=== PATIENT | male | born 1970 | race Caucasian/White ===

== ENCOUNTER → 2020-03-17 10:29 | Outpatient (BNVA) | payer SELFPAY | PROVIDERS: Visit Provider Internal Medicine | DX: Z95.2 Presence of prosthetic heart valve (principal); I34.0 Nonrheumatic mitral (valve) insufficiency; Z79.01 Long term (current) use of anticoagulants | CPT/HCPCS: 85610 ==

== ENCOUNTER 2020-04-10 19:21 | Observation (INO) | payer SELFPAY ==
[2020-04-10 19:39] VITALS: BP 154/84; PULSE 81; RESP 16; TEMP 36.8; O2SAT 97; BMI 24.4
--- NOTE | 2020-04-10 19:51 | CTR_ITS ---
PROCEDURE INFORMATION: Exam: CT Head Without Contrast Exam date and time: 04/10/2020 8:17 PM Age: 50 years old Clinical indication: Altered mental status/memory loss; Confusion or disorientation; Patient HX: C/O ams/memory loss TECHNIQUE: Imaging protocol: Computed tomography of the head without contrast. Radiation optimization: All CT scans at this facility use at least one of these dose optimization techniques: automated exposure control; mA and/or kV adjustment per patient size (includes targeted exams where dose is matched to clinical indication); or iterative reconstruction. COMPARISON: CT head wo con* [id number] 04/15/2017 4:13 PM RADIATION DOSE METRICS: Total DLP (mGy-cm): 818.77 FINDINGS: Brain: Normal. No hemorrhage. Unremarkable white matter. No mass effect. Ventricles: Normal. No ventriculomegaly. Bones/joints: Unremarkable. No acute fracture. Sinuses: Visualized sinuses are unremarkable. No fluid levels. Mastoid air cells: Visualized mastoid air cells are well aerated. Soft tissues: Unremarkable. CT/CT head wo con* [id number] IMPRESSION: No acute intracranial abnormality. Radiation Dose CTDIVOL = (mGy): DLP = 818.77 (mGy-cm)
--- NOTE | 2020-04-10 19:51 | ECG_ITS ---
[facility] Test Date: 2020-04-10 Pat Name: Vel Barnard Department: Room: Gender: Male Psychologist Experimental: : 1970 Requested By: Elvira Noel Order Number: [id number] Anne MD: Hillary Gudino M.D. Measurements Intervals [place] Rate: 74 P: 63 TN: 185 QRS: 8 QRSD: 85 T: 63 QT: 356 QTc: 396 Interpretive Statements SINUS RHYTHM SEPTAL MYOCARDIAL INFARCTION , OF INDETERMINATE AGE [40+ ms Q WAVE IN V1/V2] Compared to ECG 04/15/2017 15:55:52 Myocardial infarct finding now present T-wave abnormality no longer present Electronically Signed On 04-11-2020 15:17:42 CDT by Hillary Gudino M.D. [id number]
--- NOTE | 2020-04-10 19:51 | XRR_ITS ---
PROCEDURE INFORMATION: Exam: XR Chest, 1 View Exam date and time: 04/10/2020 8:31 PM Age: 50 years old Clinical indication: Other: Confusion; Prior surgery; Surgery type: Heart valve TECHNIQUE: Imaging protocol: XR of the chest Views: 1 view. COMPARISON: CR Chest 1 [place] [id number] 01/15/2018 12:15 AM FINDINGS: Lungs: Subsegmental atelectasis at the left lung base. Pleural space: Unremarkable. No pleural effusion. No pneumothorax. Heart/Mediastinum: Prosthetic cardiac valve. Bones/joints: Sternotomy wires. XR/XR chest 1V portable [id number] IMPRESSION: No acute abnormality. Subsegmental atelectasis at the left lung base.
--- NOTE | 2020-04-10 20:00 | CTR_ITS ---
PROCEDURE INFORMATION: Exam: CT Angiography Head With Contrast Exam date and time: 04/10/2020 8:30 PM Age: 50 years old Clinical indication: Type not specified; Patient HX: C/O ams/memory loss thinks he's having a stroke ; Additional info: Confusion/numbness TECHNIQUE: Imaging protocol: Computed tomography angiography of the head with intravenous contrast. 3D rendering (Not supervised by radiologist): MIP and/or 3D reconstructed images were created by the technologist. Radiation optimization: All CT scans at this facility use at least one of these dose optimization techniques: automated exposure control; mA and/or kV adjustment per patient size (includes targeted exams where dose is matched to clinical indication); or iterative reconstruction. Contrast material: OMNI 350; Contrast volume: 95 ml; Contrast route: INTRAVENOUS (IV); COMPARISON: CT head wo con* [id number] 04/10/2020 8:28 PM RADIATION DOSE METRICS: Total DLP (mGy-cm): 2202.99 FINDINGS: ANTERIOR CIRCULATION: Right internal carotid artery: Unremarkable. Intracranial segment is patent with no significant stenosis. No aneurysm. Right middle cerebral artery: Unremarkable. No occlusion or significant stenosis. No aneurysm. Right anterior cerebral artery: Unremarkable. No occlusion or significant stenosis. No aneurysm. Left internal carotid artery: Unremarkable. Intracranial segment is patent with no significant stenosis. No aneurysm. Left middle cerebral artery: Unremarkable. No occlusion or significant stenosis. No aneurysm. Left anterior cerebral artery: Unremarkable. No occlusion or significant stenosis. No aneurysm. POSTERIOR CIRCULATION: Right vertebral artery: Unremarkable. No occlusion or significant stenosis. No aneurysm. Left vertebral artery: Unremarkable. No occlusion or significant stenosis. No aneurysm. Basilar artery: Unremarkable. No occlusion or significant stenosis. No aneurysm. Right posterior cerebral artery: Unremarkable. No occlusion or significant stenosis. No aneurysm. Left posterior cerebral artery: Unremarkable. No occlusion or significant stenosis. No aneurysm. IMPRESSION: No large vessel stenosis or occlusion. PROCEDURE INFORMATION: Exam: CT Angiography Neck With Contrast Exam date and time: 04/10/2020 8:30 PM Age: 50 years old Clinical indication: Type not specified; Patient HX: C/O ams/memory loss thinks he's having a stroke ; Additional info: Confusion/numbness TECHNIQUE: Imaging protocol: Computed tomography angiography of the neck with intravenous contrast. 3D rendering (Not supervised by radiologist): MIP and/or 3D reconstructed images were created by the technologist. Radiation optimization: All CT scans at this facility use at least one of these dose optimization techniques: automated exposure control; mA and/or kV adjustment per patient size (includes targeted exams where dose is matched to clinical indication); or iterative reconstruction. Contrast material: OMNI 350; Contrast volume: 95 ml; Contrast route: INTRAVENOUS (IV); COMPARISON: CT head wo con* [id number] 04/10/2020 8:28 PM RADIATION DOSE METRICS: Total DLP (mGy-cm): 2202.99 FINDINGS: Right common carotid artery: No stenosis. No dissection or occlusion. Right internal carotid artery: No stenosis of the extracranial segment. No dissection or occlusion. Right external carotid artery: No occlusion or stenosis of the origin. Right vertebral artery: No stenosis. No dissection or occlusion. Left common carotid artery: No stenosis. No dissection or occlusion. Left internal carotid artery: Approximately 35% stenosis of the proximal left internal carotid artery with calcified plaque. Left external carotid artery: No occlusion or stenosis of the origin. Left vertebral artery: No stenosis. No dissection or occlusion. Bones/joints: No acute fracture. Soft tissues: Normal. No significant soft tissue swelling. CT/CT angio headneck* [id number] IMPRESSION: Right: No stenosis or occlusion of the vessels. Left: Approximately 35% stenosis of the proximal left internal carotid artery with calcified plaque. Vertebral artery is patent. REFERENCES: NASCET CRITERIA. The degree of internal carotid artery stenosis is based on NASCET criteria. Normal is no stenosis. Mild is less than 50% stenosis. Moderate is 50-69% stenosis. Severe is 70% to 99% stenosis. Total occlusion is no detectable patent lumen. Radiation Dose CTDIVOL = (mGy): DLP = 2202.99~2202.99 (mGy-cm)
--- NOTE | 2020-04-10 20:16 | W.ED.NEUROSD ---
HPI - Neuro Symptoms/Deficit General: Chief Complaint: Neuro Symptoms/Deficit Stated Complaint: thinks he had a stroke Time Seen by Provider: 04/10/20 19:50 Source: patient Mode of arrival: ambulatory Limitations: no limitations History of Present Illness: HPI Narrative: Vel is a nice 50-year-old male who comes in with symptoms of confusion that have been intermittent throughout the day. Over the past 3 to 4 hours they have become much more prominent. By confused the patient and his state specifically that he is having a hard time remembering what day it is. His states that at times he appears spacey . Patient states that he had similar symptoms in the past and it was determined to be a stroke. Patient denies any unilateral weakness or numbness. His states he is not having trouble with his speech and he is not having any slurred speech. Patient denies any headache, chest pain, shortness of breath, fever or other complaints. Patient's symptoms have been intermittent throughout the day but after he was outside working in the yard they became more prominent. Currently the patient states that he feels okay but that he still just does not feel quite right. Associated symptoms: Deny chest pain, diaphoresis, headache(s), malaise, nausea, syncope, vertigo or vomiting Review of Systems Const: Denies: fever(s), chills, body aches, fatigue, malaise or diaphoresis Eyes: Denies: change in vision, blurry vision, photophobia, eye discomfort, eye discharge, eye redness or yellow eyes ENMT: Denies: throat pain, odynophagia, hoarseness, swelling of lips/tongue, ear or mastoid pain, ear discharge, change in hearing or nasal discharge Card: Denies: chest pain, palpitations, irregular heart rhythm, edema, lightheadedness, syncope, pre-syncope, dyspnea on exertion or orthopnea Resp: Denies: dyspnea, productive cough, non-productive cough, wheezing, hemoptysis or chest congestion GI: Denies: abdominal pain, nausea, vomiting, hematemesis, coffee ground emesis, heartburn, diarrhea, constipation, GI cramping, hematochezia or melena : Denies: flank pain, dysuria, urinary frequency, urinary urgency or hematuria Musc: Denies: neck pain, back pain, extremity pain, extremity swelling, joint pain, joint swelling, joint redness, joint warmth or joint stiffness Skin/Breast: Denies: rash, pruritus, erythema, skin pain or skin tenderness Neuro: Reports: confusion; Denies: headache(s), numbness in extremities, weakness in extremities, sensory changes, lack of coordination, difficulty walking, dizziness, vertigo, Slurred speech present or seizure-like activity Bridger/Lymph: Denies: easy bruising, easy bleeding, petechiae, purpura or enlarged lymph nodes All/Imm: Denies: urticaria, throat swelling, tongue swelling, facial swelling or acute wheezing PFSH ED PFSH: Medical History (Updated 04/11/20 @ 00:16 by Elvira James) Chronic anticoagulation -On Coumadin CVA (cerebral vascular accident) Diverticulosis GERD (gastroesophageal reflux disease) Hypertension Hypothyroidism Surgical History (Updated 04/11/20 @ 00:07 by Yris Conteh MD) H/O hemorrhoidectomy H/O wrist surgery -right Hx of tracheostomy Mitral valve replaced -mechanical valve Family History Other Stroke Social History (Updated 04/11/20 @ 00:08 by Yris Conteh MD) Smoking and tobacco status: current every day smoker cigarettes Packs smoked per day: 2 Alcohol intake: never Substance/Drug Use: never Household members: family Marital status: Current occupational status: employed 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 NIH stroke score NIHSS: Level Of Consciousness - 1a: 0 Level Of Consciousness Questions - 1b: Both Correct Level Of Consciousness Commands - 1c: Both Correct Best Gaze - 2: Normal Visual Patino - 3: No Visual Loss Facial Palsy - 4: Normal Motor Arm Right - 5: No Drift Motor Arm Left - 5: No Drift Motor Leg Right - 6: No Drift Motor Leg Left - 6: No Drift Limb Ataxia - 7: Absent Sensory - 8: Mild To Moderate Loss Best Language - 9: No Aphasia Dysarthia - 10: Normal Extinction And Inattention - 11: 0 Score: Total Score: 1 Physical Exam Const: COMMON NORMALS: no acute distress, patient oriented x3, no limitations and alert GENERAL APPEARANCE: cooperative HENMT: COMMON NORMALS: normocephalic, atraumatic, external ears normal, EAC's normal and Normal external nose present HEAD & SCALP: normal to inspection, normocephalic and atraumatic FACE & SINUS: normal facial exam and face symmetric NOSE: Normal external nose present and Normal nares present EXTERNAL EAR: Yes external ears normal EXTERNAL AUDITORY CANAL: EAC's normal MOUTH: Normal oral and palatal mucosa present, lip normal and tongue normal Eye: COMMON NORMALS: Equal, round and reactive pupils present and conjunctivae normal GENERAL EYE: appearance normal, both eyes and all related structures ALIGNMENT: Yes alignment normal PERIORBITAL: periorbital findings normal EYELID: eyelids normal CONJUNCTIVA: Yes conjunctivae normal SCLERA: sclerae normal PUPIL: Yes Equal, round and reactive pupils present Neck/C-Spine: COMMON NORMALS: full ROM, no lymphadenopathy, supple, no meningeal signs and no JVD GENERAL: Yes normal visual inspection and Yes trachea midline Chest: COMMONS NORMALS: normal inspection of the chest and normal palpation of entire chest wall Resp: COMMON NORMALS: normal respiratory effort, No retractions, No use of accessory muscles and clear to auscultation bilaterally EFFORT & INSPECTION: Yes able to speak in complete sentences and Yes symmetric chest movement AUSCULTATION: clear to auscultation bilaterally, no crackles, no rales, no rhonchi and no wheezes Cardio: COMMON NORMALS: no JVD, regular rate, regular rhythm, S1 normal heart sound present and S2 normal heart sound present RATE: regular rate RHYTHM: regular rhythm HEART SOUNDS: S1 normal heart sound present, S2 normal heart sound present, no click, no gallops, no murmurs and no rubs GI: COMMON NORMALS: Soft to palpation and No hepatosplenomegaly present PALPATION: Yes Soft to palpation, No Tenderness to palpation present (GI), No Guarding due to palpation present (GI), No Rigid due to palpation, Yes No hepatosplenomegaly present, No Hernia present, No Palpable mass present and No Pulsatile mass present : COMMON NORMALS: Yes no CVA tenderness BLADDER/KIDNEY EXAM: Yes no CVA tenderness Back/Pelvis: COMMON NORMALS: no CVA tenderness, thoracic and lumbar spine normal to inspection, no thoracic nor lumbar tenderness and thoraco-lumbar ROM normal Extremity: COMMON NORMALS: normal to inspection, full ROM, capillary refill normal, no joint enlargement, no clubbing, cyanosis or edema and no calf tenderness Neuro: PAULY COMA SCALE: document GCS findings Pauly coma scale eye opening: Spontaneous Pauly coma scale verbal response: Orientated [place] coma scale motor response: Obey commands Pauly coma scale total score: 15 COMMON NORMALS: patient oriented x3, CN's II-XII intact bilaterally, moves all extremities and no focal motor deficits SENSORIUM/ORIENTATION: Yes alert MENINGEAL SIGNS: Yes no meningeal signs SPEECH: speech normal GAIT: Yes Normal gait present Psych: COMMON NORMALS: mental status grossly normal, Normal thought process present, cooperative, normal affect, speech normal and activity/motor behavior normal SPEECH: Yes normal speech THOUGHT PROCESS: Normal thought process present Skin: COMMON NORMALS: no rashes or lesions noted, turgor normal, no jaundice, no petechiae and no mottling GENERAL SKIN EXAM: no rashes or lesions noted and turgor normal Course Vital Signs: Vital signs: Vital Signs Temperature 98.2 F 04/10/20 19:39 Pulse Rate 81 04/10/20 19:39 Respiratory Rate 16 04/10/20 23:09 Blood Pressure 135/81 04/10/20 23:09 Pulse Oximetry 95 04/10/20 23:09 MDM - Neuro Symptoms/Deficit MDM Narrative: Medical decision making narrative: 0013 -patient symptoms are continuing. His states when I leave the room she has to explain to him what I was talking about with the patient again. He has continued and ongoing confusion. His only other sign of stroke at this time is decreased sensation on his right side. His NIH is 1. The case was reviewed with Dr. Triana, [facility] neurologist and she did not feel as though the patient was having an acute stroke but likely a repeat symptoms from his previous stroke. I have looked for a cause for this but there is no sign of infection, metabolic abnormality or toxin at this time that is showing that could be doing this. The case was endorsed to Dr. Conteh as the patient continues to have ongoing symptoms. She agrees to evaluate the patient and she will determine whether he needs admission or not. Lab Data: Attestation: I reviewed the patient's lab results. Labs: Lab Results 04/10/20 04/10/20 04/10/20 Range/Units 20:24 20:24 20:24 WBC 8.7 (4.0-10.0) 10^3/ uL RBC 4.76 (4.1-5.3) 10^6/u L Hgb 15.6 (11.7-16.6) g/dL Hct 46.4 (42.0-52.0) % MCV 97.5 H (80-94) fL MCH 32.8 (28.0-34.0) pg MCHC 33.6 (30.0-36.0) g/dL RDW 12.0 L (12.1-15.1) % Plt Count 236 (130-400) 10^3/c mm MPV 10.5 H (7.4-10.4) fL Neut % (Auto) 50.7 % Lymph % (Auto) 31.0 % [place] % (Auto) 10.1 % Eos % (Auto) 7.1 % Baso % (Auto) 0.9 % Neut # (Auto) 4.42 (1.8-7.7) 10^3/u L Lymph # (Auto) 2.7 (0.8-4.8) 10^3/u L [place] # (Auto) 0.9 (0.2-0.9) 10^3/u L Eos # (Auto) 0.6 (0.0-0.8) 10^3/u L Baso # (Auto) 0.1 (0.0-0.1) 10^3/u L Nucleated RBC % (a uto) 0 % Nucleated RBCs # 0.0 /100WBC PT 25.20 H (12.1-14.9) SECO NDS INR 2.20 H (0.8-1.2) Sodium 136 (136-145) mmol/L Potassium 4.2 (3.5-5.1) mmol/L Chloride 102 (98-107) mmol/L Carbon Dioxide 24 (22-29) mmol/L Anion Gap 14.2 (5-19) BUN 9 (6-20) mg/dL Creatinine 0.9 (0.7-1.2) mg/dL GFR Calculation 88.6 L (90-130) mL/min Glucose 94 (65-115) mg/dL Calculated Osmolal ity 278 L (285-295) mOsm/k g Calcium 9.3 (8.5-10.5) mg/dL Magnesium 1.9 (1.7-2.3) mg/dL Total Bilirubin 0.4 (0.15-1.2) mg/dL AST 20 (0-40) U/L ALT 15 (0-41) U/L Alkaline Phosphata se 79 (40-130) IU/L Creatine Kinase 140 (39-308) U/L Troponin T Baselin e (0-15) ng/L Troponin T 120 Min [place] (0-15) ng/L Delta Troponin T (0-10) ABS# Total Protein 7.4 (6.6-8.7) g/dL Albumin 4.7 (3.5-5.2) g/dL Globulin 2.7 (1.3-4.6) g/dL Urine Color (Yellow) Urine Appearance (CLEAR) Urine pH (5-7) Ur Specific Gravit y (1.005-1.030) Urine Protein (Negative) Urine Glucose (UA) (Normal) Urine Ketones (Negative) Urine Blood (Negative) Urine Nitrate (Negative) Urine Bilirubin (Negative) Urine Urobilinogen (Negative) mg/dL Ur Leukocyte Ruchi ase (Negative) Urine Opiates Scre en (Negative) ng/mL Ur Barbiturates Sc reen (Negative) ng/mL Ur Phencyclidine S crn (Negative) ng/mL Ur Amphetamines Sc reen (Negative) ng/mL U Benzodiazepines Scrn (Negative) ng/mL Urine Cocaine Scre en (Negative) ng/mL U Marijuana (THC) Screen (Negative) ng/mL Ethyl Alcohol (0-10) mg/dL 04/10/20 04/10/20 04/10/20 Range/Units 20:24 20:45 21:24 WBC (4.0-10.0) 10^3/ uL RBC (4.1-5.3) 10^6/u L Hgb (11.7-16.6) g/dL Hct (42.0-52.0) % MCV (80-94) fL MCH (28.0-34.0) pg MCHC (30.0-36.0) g/dL RDW (12.1-15.1) % Plt Count (130-400) 10^3/c mm MPV (7.4-10.4) fL Neut % (Auto) % Lymph % (Auto) % [place] % (Auto) % Eos % (Auto) % Baso % (Auto) % Neut # (Auto) (1.8-7.7) 10^3/u L Lymph # (Auto) (0.8-4.8) 10^3/u L [place] # (Auto) (0.2-0.9) 10^3/u L Eos # (Auto) (0.0-0.8) 10^3/u L Baso # (Auto) (0.0-0.1) 10^3/u L Nucleated RBC % (a uto) % Nucleated RBCs # /100WBC PT (12.1-14.9) SECO NDS INR (0.8-1.2) Sodium (136-145) mmol/L Potassium (3.5-5.1) mmol/L Chloride (98-107) mmol/L Carbon Dioxide (22-29) mmol/L Anion Gap (5-19) BUN (6-20) mg/dL Creatinine (0.7-1.2) mg/dL GFR Calculation (90-130) mL/min Glucose (65-115) mg/dL Calculated Osmolal ity (285-295) mOsm/k g Calcium (8.5-10.5) mg/dL Magnesium (1.7-2.3) mg/dL Total Bilirubin (0.15-1.2) mg/dL AST (0-40) U/L ALT (0-41) U/L Alkaline Phosphata se (40-130) IU/L Creatine Kinase (39-308) U/L Troponin T Baselin e 8 (0-15) ng/L Troponin T 120 Min [place] 6.21 (0-15) ng/L Delta Troponin T -1.79 L (0-10) ABS# Total Protein (6.6-8.7) g/dL Albumin (3.5-5.2) g/dL Globulin (1.3-4.6) g/dL Urine Color (Yellow) Urine Appearance (CLEAR) Urine pH (5-7) Ur Specific Gravit y (1.005-1.030) Urine Protein (Negative) Urine Glucose (UA) (Normal) Urine Ketones (Negative) Urine Blood (Negative) Urine Nitrate (Negative) Urine Bilirubin (Negative) Urine Urobilinogen (Negative) mg/dL Ur Leukocyte Ruchi ase (Negative) Urine Opiates Scre en (Negative) ng/mL Ur Barbiturates Sc reen (Negative) ng/mL Ur Phencyclidine S crn (Negative) ng/mL Ur Amphetamines Sc reen (Negative) ng/mL U Benzodiazepines Scrn (Negative) ng/mL Urine Cocaine Scre en (Negative) ng/mL U Marijuana (THC) Screen (Negative) ng/mL Ethyl Alcohol < 10 (0-10) mg/dL 04/10/20 04/10/20 Range/Units 21:30 21:30 WBC (4.0-10.0) 10^3/ uL RBC (4.1-5.3) 10^6/u L Hgb (11.7-16.6) g/dL Hct (42.0-52.0) % MCV (80-94) fL MCH (28.0-34.0) pg MCHC (30.0-36.0) g/dL RDW (12.1-15.1) % Plt Count (130-400) 10^3/c mm MPV (7.4-10.4) fL Neut % (Auto) % Lymph % (Auto) % [place] % (Auto) % Eos % (Auto) % Baso % (Auto) % Neut # (Auto) (1.8-7.7) 10^3/u L Lymph # (Auto) (0.8-4.8) 10^3/u L [place] # (Auto) (0.2-0.9) 10^3/u L Eos # (Auto) (0.0-0.8) 10^3/u L Baso # (Auto) (0.0-0.1) 10^3/u L Nucleated RBC % (a uto) % Nucleated RBCs # /100WBC PT (12.1-14.9) SECO NDS INR (0.8-1.2) Sodium (136-145) mmol/L Potassium (3.5-5.1) mmol/L Chloride (98-107) mmol/L Carbon Dioxide (22-29) mmol/L Anion Gap (5-19) BUN (6-20) mg/dL Creatinine (0.7-1.2) mg/dL GFR Calculation (90-130) mL/min Glucose (65-115) mg/dL Calculated Osmolal ity (285-295) mOsm/k g Calcium (8.5-10.5) mg/dL Magnesium (1.7-2.3) mg/dL Total Bilirubin (0.15-1.2) mg/dL AST (0-40) U/L ALT (0-41) U/L Alkaline Phosphata se (40-130) IU/L Creatine Kinase (39-308) U/L Troponin T Baselin e (0-15) ng/L Troponin T 120 Min [place] (0-15) ng/L Delta Troponin T (0-10) ABS# Total Protein (6.6-8.7) g/dL Albumin (3.5-5.2) g/dL Globulin (1.3-4.6) g/dL Urine Color Yellow (Yellow) Urine Appearance Clear (CLEAR) Urine pH 5 (5-7) Ur Specific Gravit y 1.005 (1.005-1.030) Urine Protein Neg (Negative) Urine Glucose (UA) Norm (Normal) Urine Ketones Negative (Negative) Urine Blood Neg (Negative) Urine Nitrate Negative (Negative) Urine Bilirubin Neg (Negative) Urine Urobilinogen Norm (Negative) mg/dL Ur Leukocyte Ruchi ase Negative (Negative) Urine Opiates Scre en Negative (Negative) ng/mL Ur Barbiturates Sc reen Negative (Negative) ng/mL Ur Phencyclidine S crn Negative (Negative) ng/mL Ur Amphetamines Sc reen Negative (Negative) ng/mL U Benzodiazepines Scrn Negative (Negative) ng/mL Urine Cocaine Scre en Negative (Negative) ng/mL U Marijuana (THC) Screen Negative (Negative) ng/mL Ethyl Alcohol (0-10) mg/dL Imaging Data^: CXR: Attestation: I personally reviewed and interpreted this imaging study as follows: My impression: No acute cardiopulmonary findings. CT Head: Radiologist's impression: [address] [place] [address] CT Scan Report Signed Patient: Vel Barnard Unit #: [id number] : 1970 Age/Sex: 50 / M ADM Date: 04/10/20 Loc: ER Room/Bed: Attending Dr: Ordering Provider/Ordering MD: Elvira James DO Date of Service: 04/10/20 Procedure(s): CT head wo con* [id number] Accession Number(s): [id number] Report Number: [id number] PROCEDURE INFORMATION: Exam: CT Head Without Contrast Exam date and time: 04/10/2020 8:17 PM Age: 50 years old Clinical indication: Altered mental status/memory loss; Confusion or disorientation; Patient HX: C/O ams/memory loss TECHNIQUE: Imaging protocol: Computed tomography of the head without contrast. Radiation optimization: All CT scans at this facility use at least one of these dose optimization techniques: automated exposure control; mA and/or kV adjustment per patient size (includes targeted exams where dose is matched to clinical indication); or iterative reconstruction. COMPARISON: CT head wo con* [id number] 04/15/2017 4:13 PM RADIATION DOSE METRICS: Total DLP (mGy-cm): 818.77 FINDINGS: Brain: Normal. No hemorrhage. Unremarkable white matter. No mass effect. Ventricles: Normal. No ventriculomegaly. Bones/joints: Unremarkable. No acute fracture. Sinuses: Visualized sinuses are unremarkable. No fluid levels. Mastoid air cells: Visualized mastoid air cells are well aerated. Soft tissues: Unremarkable. CT/CT head wo con* [id number] IMPRESSION: No acute intracranial abnormality. Radiation Dose CTDIVOL = (mGy): DLP = 818.77 (mGy-cm) Dictated By: Asael Madrid MD Signed By: Asael Madrid MD Signed Date/Time: 04/10/202115 DD/ 13 CTA Head Neck: Radiologist's impression: [place] [address] CT Scan Report Signed Patient: Vel Barnard Unit #: [id number] : 1970 Age/Sex: 50 / M ADM Date: 04/10/20 Loc: ER Room/Bed: Attending Dr: Ordering Provider/Ordering MD: Elvira James DO Date of Service: 04/10/20 Procedure(s): CT angio headneck* [id number] Accession Number(s): [id number] Report Number: [id number] PROCEDURE INFORMATION: Exam: CT Angiography Head With Contrast Exam date and time: 04/10/2020 8:30 PM Age: 50 years old Clinical indication: Type not specified; Patient HX: C/O ams/memory loss thinks he's having a stroke ; Additional info: Confusion/numbness TECHNIQUE: Imaging protocol: Computed tomography angiography of the head with intravenous contrast. 3D rendering (Not supervised by radiologist): MIP and/or 3D reconstructed images were created by the technologist. Radiation optimization: All CT scans at this facility use at least one of these dose optimization techniques: automated exposure control; mA and/or kV adjustment per patient size (includes targeted exams where dose is matched to clinical indication); or iterative reconstruction. Contrast material: OMNI 350; Contrast volume: 95 ml; Contrast route: INTRAVENOUS (IV); COMPARISON: CT head wo con* [id number] 04/10/2020 8:28 PM RADIATION DOSE METRICS: Total DLP (mGy-cm): 2202.99 FINDINGS: ANTERIOR CIRCULATION: Right internal carotid artery: Unremarkable. Intracranial segment is patent with no significant stenosis. No aneurysm. Right middle cerebral artery: Unremarkable. No occlusion or significant stenosis. No aneurysm. Right anterior cerebral artery: Unremarkable. No occlusion or significant stenosis. No aneurysm. Left internal carotid artery: Unremarkable. Intracranial segment is patent with no significant stenosis. No aneurysm. Left middle cerebral artery: Unremarkable. No occlusion or significant stenosis. No aneurysm. Left anterior cerebral artery: Unremarkable. No occlusion or significant stenosis. No aneurysm. POSTERIOR CIRCULATION: Right vertebral artery: Unremarkable. No occlusion or significant stenosis. No aneurysm. Left vertebral artery: Unremarkable. No occlusion or significant stenosis. No aneurysm. Basilar artery: Unremarkable. No occlusion or significant stenosis. No aneurysm. Right posterior cerebral artery: Unremarkable. No occlusion or significant stenosis. No aneurysm. Left posterior cerebral artery: Unremarkable. No occlusion or significant stenosis. No aneurysm. IMPRESSION: No large vessel stenosis or occlusion. PROCEDURE INFORMATION: Exam: CT Angiography Neck With Contrast Exam date and time: 04/10/2020 8:30 PM Age: 50 years old Clinical indication: Type not specified; Patient HX: C/O ams/memory loss thinks he's having a stroke ; Additional info: Confusion/numbness TECHNIQUE: Imaging protocol: Computed tomography angiography of the neck with intravenous contrast. 3D rendering (Not supervised by radiologist): MIP and/or 3D reconstructed images were created by the technologist. Radiation optimization: All CT scans at this facility use at least one of these dose optimization techniques: automated exposure control; mA and/or kV adjustment per patient size (includes targeted exams where dose is matched to clinical indication); or iterative reconstruction. Contrast material: OMNI 350; Contrast volume: 95 ml; Contrast route: INTRAVENOUS (IV); COMPARISON: CT head wo con* [id number] 04/10/2020 8:28 PM RADIATION DOSE METRICS: Total DLP (mGy-cm): 2202.99 FINDINGS: Right common carotid artery: No stenosis. No dissection or occlusion. Right internal carotid artery: No stenosis of the extracranial segment. No dissection or occlusion. Right external carotid artery: No occlusion or stenosis of the origin. Right vertebral artery: No stenosis. No dissection or occlusion. Left common carotid artery: No stenosis. No dissection or occlusion. Left internal carotid artery: Approximately 35% stenosis of the proximal left internal carotid artery with calcified plaque. Left external carotid artery: No occlusion or stenosis of the origin. Left vertebral artery: No stenosis. No dissection or occlusion. Bones/joints: No acute fracture. Soft tissues: Normal. No significant soft tissue swelling. CT/CT angio headneck* [id number] IMPRESSION: Right: No stenosis or occlusion of the vessels. Left: Approximately 35% stenosis of the proximal left internal carotid artery with calcified plaque. Vertebral artery is patent. REFERENCES: NASCET CRITERIA. The degree of internal carotid artery stenosis is based on NASCET criteria. Normal is no stenosis. Mild is less than 50% stenosis. Moderate is 50-69% stenosis. Severe is 70% to 99% stenosis. Total occlusion is no detectable patent lumen. Radiation Dose CTDIVOL = (mGy): DLP = 2202.99 2202.99 (mGy-cm) Dictated By: Asael Madrid MD Signed By: Asael Madrid MD Signed Date/Time: 04/10/202108 DD/ 06 EKG Data^: EKG 1: Attestation: I personally reviewed and interpreted this EKG as follows: EKG interpretation date: 04/10/20 EKG interpretation time: 20:07 Interpretation: Normal sinus rhythm at 74 beats a minute, normal axis, no blocks, normal intervals, no acute ST or T wave changes. Possible septal CT. Discharge Plan Discharge Patient Disposition: Placed in Observation Clinical Impression: Altered mental status Condition: Stable Prescriptions: No Action amlodipine 10 mg tablet 10 mg PO DAILY Qty: 90 RF: 3 warfarin 5 mg tablet 5 mg PO DAILY Qty: 30 RF: 5 warfarin 6 mg tablet 6 mg PO DAILY Qty: 30 RF: 5 Coding Level of Care Code ED Watch Dial Maker for Hai Tucker Exam Comprehensive
[2020-04-10] MEDS: sodium chloride 0.9% 1,000 ML 999 ML IV (20:25)
[2020-04-10 20:36] VITALS: RESP 16
[2020-04-10 20:40] LABS: Basophils # 0.1 10^3/uL (0.0-0.1); Basophils % 0.9 %; Eosinophils # 0.6 10^3/uL (0.0-0.8); Eosinophils % 7.1 %; Hematocrit 46.4 % (42.0-52.0); Hemoglobin 15.6 g/dL (11.7-16.6); Lymphocytes # 2.7 10^3/uL (0.8-4.8); Mean Corpuscular HGB Conc 33.6 g/dL (30.0-36.0); Mean Corpuscular Hemoglobin 32.8 pg (28.0-34.0); Mean Corpuscular Volume 97.5 fL (80-94); Mean Platelet Volume 10.5 fL (7.4-10.4); Monocytes # 0.9 10^3/uL (0.2-0.9); Monocytes % 10.1 %; Neutrophils # 4.42 10^3/uL (1.8-7.7); Neutrophils % 50.7 %; Nucleated Red Blood Cells % 0 %; Platelet Count 236 10^3/cmm (130-400); Red Blood Count 4.76 10^6/uL (4.1-5.3); White Blood Count 8.7 10^3/uL (4.0-10.0)
[2020-04-10] MEDS: iohexol 350 mg/mL 100 mL Btl IV (20:46)
[2020-04-10 21:15] LABS: Troponin(5th) Baseline 8 ng/L (0-15)
[2020-04-10 21:22] LABS: Alanine Aminotransferase 15 U/L (0-41); Albumin Level 4.7 g/dL (3.5-5.2); Alkaline Phosphatase 79 IU/L (40-130); Anion Gap 14.2 (5-19); Aspartate Amino Transferase 20 U/L (0-40); Blood Urea Nitrogen 9 mg/dL (6-20); Calcium 9.3 mg/dL (8.5-10.5); Carbon Dioxide 24 mmol/L (22-29); Chloride 102 mmol/L (98-107); Creatine Phosphokinase 140 U/L (39-308); Globulin 2.7 g/dL (1.3-4.6); Glomerular Filtration Rate 88.6 mL/min (90-130); Glucose 94 mg/dL (65-115); Magnesium 1.9 mg/dL (1.7-2.3); Osmolality Calculated 278 mOsm/kg (285-295); Potassium 4.2 mmol/L (3.5-5.1); Sodium 136 mmol/L (136-145); Total Bilirubin 0.4 mg/dL (0.15-1.2); Total Protein 7.4 g/dL (6.6-8.7)
[2020-04-10 21:41] VITALS: BP 139/89; RESP 18; O2SAT 96
--- NOTE | 2020-04-10 22:01 | ECG_ITS ---
[facility] Test Date: 2020-04-10 Pat Name: Vel Barnard Department: Room: Gender: Male [employer]: : 1970 Requested By: Elvira Noel Order Number: [id number] Anne MD: Hillary Gudino M.D. Measurements Intervals [place] Rate: 67 P: 57 MI: 193 QRS: 27 QRSD: 85 T: 63 QT: 372 QTc: 395 Interpretive Statements SINUS RHYTHM WITH OCCASIONAL ECTOPIC PREMATURE COMPLEXES SEPTAL MYOCARDIAL INFARCTION , OF INDETERMINATE AGE [40+ ms Q WAVE IN V1/V2] Compared to ECG 04/10/2020 20:07:19 No significant changes Electronically Signed On 04-11-2020 15:18:19 CDT by Hillary Gudino M.D. [email or web address]
[2020-04-10 22:07] LABS: Add Urine Microscopic? NO
[2020-04-10 22:29] LABS: Specific Gravity, Urine 1.005 (1.005-1.030); Urine Appearance Clear (CLEAR); Urine Color Yellow (Yellow); pH Urine 5 (5-7)
[2020-04-10 22:30] LABS: Bilirubin Urine Neg (Negative); Blood Urine Neg (Negative); Glucose Urine UA Norm (Normal); Ketones Urine Negative (Negative); Leukocyte Esterase Urine Negative (Negative); Nitrate Urine Negative (Negative); Protein Urine Neg (Negative); Urobilinogen Urine Norm (Negative)
[2020-04-10 23:09] VITALS: BP 135/81; RESP 16; O2SAT 95
[2020-04-10 23:40] LABS: Troponin 5 2HR 6.21 ng/L (0-15)
--- NOTE | 2020-04-10 23:46 | P.HP_ITS ---
Providers/Chief Complaint Admitting Physician: Yris Conteh MD Primary Care Provider: ZACK Tavarez Chief Complaint: thinks he had a stroke History of Present Illness Vel Barnard is a 50 year old male with PMHx noted below presents accompanied by his for evaluation of noted confusion that started earlier today and seems to have progressed as the day has worn on. He seems to be having trouble recalling things and is repetitively asking the same questions by his who is at bedside during my assessment in the ER. is known to me as she is a previous employee of our facility. Patient and did not notice any other symptoms, he denies change in his speech, recent fall, syncopal episode or loss of consciousness, chest pain, shortness of breath, does have a chronic dry cough which he attributes to smoking. Denies exposure to any known COVID-19 individuals, fever/chills, change in appetite, change in urinary or bowel habits. He has had a prior stroke in 2017 and is on anticoagulation with Coumadin secondary to having mechanical mitral valve. 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 Prior to the onset of his symptoms he was otherwise in his usual state of health. Work-up so far has been unremarkable including normal CBC, normal electrolytes and renal function, blood glucose of 94, urinalysis that is negative, INR of 2.20, CT head and CTA of the head and neck which are also unremarkable for any acute findings. Chest x-ray shows some left lower lobe atelectasis. Vital signs have been stable and is currently on room air. ED physician has spoken with tele-neurology with recommendation made for echo to be done. Initial NIH score was 1. His speech is clear, he is able to answer my questions appropriately though looks at his for confirmation almost as if he is unsure of his answers. We will need to observe on telemetry, monitor vital signs and neuro status at least overnight. Review of Systems Const: Reports: fatigue; Denies: fever(s) or chills Eyes: Denies: change in vision ENMT: Denies: odynophagia Card: Denies: chest pain, swelling of feet/ankles, lightheadedness, syncope or pre-syncope Resp: Reports: non-productive cough (chronic); Denies: dyspnea GI: Denies: abdominal pain, nausea, vomiting, hematemesis or hematochezia : Reports: urinary frequency; Denies: dysuria Musc: Denies: back pain Skin/Breast: Denies: rash Neuro: Reports: weakness in extremities; Denies: numbness in extremities Psych: Denies: anxiety Medications/Allergies Home Medications Medication Instructions Recorded Confirmed Last Taken Type warfarin 5 mg tablet 5 mg PO DAILY #30 tab 10/22/19 03/17/20 Unknown Rx warfarin 6 mg tablet 6 mg PO DAILY #30 tab 10/22/19 03/17/20 Unknown Rx amlodipine 10 mg tablet 10 mg PO DAILY #90 tab 11/13/19 11/13/19 Unknown Rx Allergies Allergy/AdvReac Type Severity Reaction Status Date / Time No Known Allergies Allergy Unverified 10/22/19 09:35 PFSH Acute PFSH: Medical History (Updated 04/11/20 @ 00:22 by Yris Conteh MD) Chronic anticoagulation -On Coumadin CVA (cerebral vascular accident) Diverticulosis GERD (gastroesophageal reflux disease) Hypertension Hypothyroidism Surgical History (Updated 04/11/20 @ 00:20 by Yris Conteh MD) H/O hemorrhoidectomy H/O wrist surgery -right Hx of tracheostomy Mitral valve replaced -mechanical valve Family History Other Stroke Social History (Updated 04/11/20 @ 00:08 by Yris Conteh MD) Smoking and tobacco status: current every day smoker cigarettes Packs smoked per day: 2 Alcohol intake: never Substance/Drug Use: never Household members: family Marital status: Current occupational status: employed 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 Vitals/I&O/Wt Last Vital Signs Temp 98.2 F 04/10/20 19:39 Pulse 81 04/10/20 19:39 Resp 16 04/10/20 23:09 BP 135/81 04/10/20 23:09 Pulse Ox 95 04/10/20 23:09 Weight last 48 hrs Weight 81.647 kg Physical Exam Const: COMMON NORMALS: no acute distress, patient oriented x3 and alert GENERAL APPEARANCE: cooperative and comfortable ORIENTATION/CONSCIOUSNESS: Yes awake OTHER: -Ramsey complexion from sun exposure HENMT: COMMON NORMALS: normocephalic, atraumatic, hearing grossly normal bilaterally and moist oral mucous membranes HEAD & SCALP: normocephalic and atraumatic Eye: COMMON NORMALS: Equal, round and reactive pupils present and EOMs intact bilaterally PUPIL: Yes Equal, round and reactive pupils present OTHER: - Bloodshot eyes bilaterally Neck/C-Spine: COMMON NORMALS: full ROM GENERAL: Yes normal visual inspection and Yes trachea midline Resp: COMMON NORMALS: normal respiratory effort, No retractions and No use of accessory muscles EFFORT & INSPECTION: Yes able to speak in complete sentences, Yes symmetric chest movement and No tachypneic OTHER: -on RA; diminished though symmetrical air entry bilaterally Cardio: COMMON NORMALS: regular rate, regular rhythm, S1 normal heart sound present, S2 normal heart sound present and No murmurs present (Cardio) RATE: regular rate RHYTHM: regular rhythm HEART SOUNDS: S1 normal heart sound present and S2 normal heart sound present GI: COMMON NORMALS: Normal to inspection, nondistended, normoactive bowel sounds present, Soft to palpation and non-tender PALPATION: Yes Soft to palpation Extremity: COMMON NORMALS: normal to inspection, full ROM and no clubbing, cyanosis or edema; negative for no pedal edema Neuro: COMMON NORMALS: patient oriented x3, moves all extremities, no focal motor deficits, no sensory deficits noted and gait normal SENSORIUM/ORIENTATION: Yes alert OTHER: -Minimally diminished gross sensation and strength on left lower extremity Psych: COMMON NORMALS: mental status grossly normal, Normal thought process present, cooperative, normal affect and speech normal SPEECH: Yes normal speech THOUGHT PROCESS: Normal thought process present Skin: COMMON NORMALS: no rashes or lesions noted, no jaundice, no petechiae and no mottling GENERAL SKIN EXAM: no rashes or lesions noted Data : 04/10/20 20:24 04/10/20 20:24 A&P Assessment and plan (1) Altered mental status: -Per report has had ongoing confusion, repeatedly asking the same question per at bedside, has progressed of the day has gone on -Unclear etiology currently as no overt indication of infection, no focal neurological deficits other than minimally diminished gross sensation and strength on the left lower extremity -Has history of prior stroke -Noted non-compliance with medications including anticoagulation with Coumadin which she is on due to mechanical mitral valve; INR slightly subtherapeutic at 2 .20; continue AC with coumadin -negative UDS, EtOH level -fall precautions -Echo in AM -CT head unremarkable for any acute findings, CTA head/neck-35% stenosis of proximal L ICA -troponins noted with no significant delta -telemetry monitoring -monitor vital signs -check TSH, A1c, lipid panel -add statin, ASA -PT/OT/ST evaluations -IVF hydration Status: Acute Qualifiers: Altered mental status type: disorientation Qualified Code(s): R41.0 - Disorientation, unspecified (2) Mitral valve replaced: -hx of mitral regurgitation s/p mechanical valve replacement -on AC with coumadin, goal INR 2.5-3.5 -daily INR Status: Chronic (3) Hypertension: -permissive HTN for now, hold oral antihypertensives -monitor vital signs Status: Chronic Qualifiers: Hypertension type: essential hypertension Qualified Code(s): I10 - Essential (primary) hypertension (4) GERD (gastroesophageal reflux disease): Status: Chronic Qualifiers: Esophagitis presence: esophagitis presence not specified Qualified Code(s): K21.9 - Gastro-esophageal reflux disease without esophagitis (5) Hypothyroidism: -check TSH -not on thyroid replacement Status: Chronic Qualifiers: Hypothyroidism type: unspecified Qualified Code(s): E03.9 - Hypothyroidism, unspecified Additional A&P Information -Chronic smoker; nicotine replacement therapy, smoking cessation encouraged -DVT ppx not needed as on coumadin -GI ppx with PPI -Dispo: home -Code status: FULL code Attestations Medical Necessity Statement*: Vel Barnard's hospital stay will be less than 2 midnights for management and further work-up of altered mental status. Time Spent in Patient Care: Greater than 35 minutes (>than 50% of time spent in counselling and/or direct pt care on unit) . Coding Level of Care Code Acute Caving Guide for Chg Fwd Exam Comprehensive Diagnoses Altered mental status R41.0 Altered mental status type: disorientation Mitral valve replaced Z95.2 Hypertension I10 Hypertension type: essential hypertension GERD (gastroesophageal reflux disease) K21.9 Esophagitis presence: esophagitis presence not specified Hypothyroidism E03.9 Hypothyroidism type: unspecified
[2020-04-10 23:55] LABS: Amphetamines Screen Urine Negative (Negative); Barbiturates Screen Urine Negative (Negative); Benzodiazepines Screen Urine Negative (Negative); Cocaine Screen Urine Negative (Negative); Opiate Screen Urine Negative (Negative); PCP Screen Urine Negative (Negative); THC Screen Urine Negative (Negative)
[2020-04-10 23:57] LABS: Alcohol Level < 10 mg/dL (0-10)
[2020-04-10 23:57] LABS: Troponin 5 2HR Delta -1.79 ABS# (0-10)
[2020-04-11] VITALS (7 sets, daily range): BP systolic 105–151; BP diastolic 56–85; PULSE 69–81; RESP 16–20; TEMP 36.5–37; O2SAT 93–98
[2020-04-11] MEDS: sodium chloride 0.9% 1,000 ML 100 ML IV ×2 (00:28→02:22)
[2020-04-11] MEDS: atorvastatin 40 mg Tablet PO (02:21)
[2020-04-11 04:20] LABS: Basophils # 0.1 10^3/uL (0.0-0.1); Basophils % 0.8 %; Eosinophils # 0.6 10^3/uL (0.0-0.8); Eosinophils % 6.7 %; Hematocrit 41.1 % (42.0-52.0); Hemoglobin 13.8 g/dL (11.7-16.6); Lymphocytes # 2.2 10^3/uL (0.8-4.8); Lymphocytes % 25.3 %; Mean Corpuscular HGB Conc 33.6 g/dL (30.0-36.0); Mean Corpuscular Volume 98.3 fL (80-94); Mean Platelet Volume 10.6 fL (7.4-10.4); Monocytes # 0.9 10^3/uL (0.2-0.9); Monocytes % 10.4 %; Neutrophils # 4.93 10^3/uL (1.8-7.7); Neutrophils % 56.6 %; Nucleated Red Blood Cells % 0 %; Platelet Count 197 10^3/cmm (130-400); Red Blood Count 4.18 10^6/uL (4.1-5.3); Red Cell Distribution Width 12.4 % (12.1-15.1); White Blood Count 8.7 10^3/uL (4.0-10.0)
[2020-04-11 04:33] LABS: INR 2.64 (0.8-1.2)
[2020-04-11 04:45] LABS: Blood Urea Nitrogen 9 mg/dL (6-20); Carbon Dioxide 24 mmol/L (22-29); Chloride 107 mmol/L (98-107); Glomerular Filtration Rate 78.5 mL/min (90-130); Glucose 103 mg/dL (65-115); Osmolality Calculated 284 mOsm/kg (285-295); Sodium 139 mmol/L (136-145)
[2020-04-11 04:49] LABS: Chol HDL Ratio 4.67 mg/dL (1.0-5.00); Cholesterol 140 mg/dL (0-200); HDL Cholesterol 30 mg/dL (60-100); LDL Cholesterol Calculated 67 mg/dL (50-129); LDL HDL Ratio 2.23 RATIO (0.00-3.22); Triglycerides 216 mg/dL (0-150)
--- NOTE | 2020-04-11 08:00 | USCV_ITS ---
Vel Barnard Age: 50 Gender: M : 1970 Exam Date: 04/11/2020 11:26 Ordering Phys: Elvira James DO Technologist: Laura Caldwell [place] [facility] [place]: CVA symptoms, Mechanical heart valve BP: 148 / 80 HR: 72 Rhythm: Sinus Technical Quality: Adequate MEASUREMENTS (Male / Female) Normal Values 2D ECHO LV Diastolic Diameter PLAX 3.9 cm 4.2 - 5.9 / 3.9 - 5.3 cm LV Systolic Diameter PLAX 3.0 cm LV Chamber Size 3.9 cm IVS Diastolic Thickness 1.2 cm 0.6 - 1.0 / 0.6 - 0.9 cm IVS Systolic Thickness 1.3 cm LVPW Diastolic Thickness 1.3 cm 0.6 - 1.0 / 0.6 - 0.9 cm LVPW Systolic Thickness 1.7 cm RV Chamber Size 2.7 cm LVOT Diameter 2.1 cm LV Ejection Fraction 2D Teich 45.2 % LV Ejection Fraction MOD 2C 59.4 % LV Ejection Fraction 2C AL 59.5 % LA Diameter 4.9 cm LA Width 3.8 cm LA Height 5.8 cm RA Width 3.7 cm RA Height 4.5 cm Aorta at Sinotubular Diameter 2.8 cm M-MODE LV Diastolic Diameter MM 5.1 cm 4.2 - 5.9 / 3.9 - 5.3 cm LV Systolic Diameter MM 3.4 cm LV Ejection Fraction MM Teich 59.9 % IVS Diastolic Thickness MM 1.2 cm 0.6 - 1.0 / 0.6 - 0.9 cm IVS Systolic Thickness MM 1.6 cm LVPW Diastolic Thickness MM 1.7 cm 0.6 - 1.0 / 0.6 - 0.9 cm LVPW Systolic Thickness MM 2.3 cm RV Diastolic Diameter MM 1.8 cm Aortic Annulus Diameter 3.3 cm LA Ao Ratio MM 1.5 DOPPLER AV Peak Velocity 171.0 cm/s LVOT Peak Velocity 132.0 cm/s AV Area Cont Eq vti 3.0 cm squared AV Area Cont Eq pk 2.7 cm squared MV Peak Velocity 183.0 cm/s MV Area PHT 3.2 cm squared Mitral E to A Ratio 1.7 MV E' Velocity 10.0 cm/s Mitral E to MV E' Ratio 20.0 Mitral E to LV E' Lateral Ratio 18.4 Mitral E to LV E' Septal Ratio 22.2 TR Peak Velocity 237.0 cm/s TR Peak Gradient 22.4 mmHg TV Peak E Velocity 70.0 cm/s Right Atrial Pressure 8.0 mmHg Pulmonary Artery Systolic Pressu 30.5 mmHg PV Peak Velocity 58.0 cm/s RV Acceleration Time 0.1 s RV Ejection Time 0.3 s RV AcT/ET 0.4 FINDINGS Left Ventricle Normal left ventricular cavity size. Normal left ventricular systolic function. No regional wall motion abnormalities. Left ventricular ejection fraction is estimated at 59 %. Grade II/IV diastolic dysfunction, moderately elevated filling pressures. Right Ventricle The right ventricle is normal in size and function. Right Atrium The right atrium is normal in size. Left Atrium The left atrium is normal in size. Mitral Valve There appeared to be Mechanical valve sitting in the mitral position without significant valvular or paravalvular leak Aortic Valve Mild aortic valve calcification. No aortic valve stenosis. Trace aortic valve regurgitation. Tricuspid Valve Mild tricuspid valve regurgitation. Pulmonic Valve Trace pulmonary valve regurgitation. Pericardium Normal pericardium without effusion. Aorta Normal ascending aorta dimension. CONCLUSIONS 1-Normal left ventricular cavity size. Normal left ventricular systolic function. No regional wall motion abnormalities. Left ventricular ejection fraction is estimated at 59 %. Grade II/IV diastolic dysfunction, moderately elevated filling pressures. 2-There appeared to be Mechanical valve sitting in the mitral position without significant valvular or paravalvular leak. 3-There appeared to be Mechanical valve sitting in the mitral position without significant valvular or paravalvular leak. 4-Mild aortic valve calcification. No aortic valve stenosis. Trace aortic valve regurgitation. 5-There is no pericardial effusion. 6-Right atrial pressure is around 15 mm of mercury. 7-No significant change since the prior echocardiogram study of 04/16/2017. Hillary Gudino MD (Electronically Signed) Final Date: 11 April 2020 13:00 S
[2020-04-11 08:33] LABS: Estmated Average Glucose 94; Hemoglobin A1C 4.9 % (4.0-6.0)
[2020-04-11] MEDS: pantoprazole DR 40 mg Tablet PO (08:43)
[2020-04-11] MEDS: aspirin 81 mg EC Tablet PO (08:43)
[2020-04-11] MEDS: acetaminophen 325 mg Tablet 650 MG PO (08:43)
[2020-04-11] MEDS: nicotine 21 mg Patch 1 PATCH TRANSDERMA (08:44)
[2020-04-11 10:28] LABS: Troponin 5 6HR 6.77 ng/L (0-15)
[2020-04-11 10:33] LABS: Troponin 5 6HR Delta -1.23 ng/L (0-12)
--- NOTE | 2020-04-11 11:04 | PM.PN ---
Vitals/I&O/Wt Last Vital Signs Temp 98.6 F 04/11/20 08:00 Pulse 81 04/11/20 08:00 Resp 18 04/11/20 08:00 BP 129/77 04/11/20 08:00 Pulse Ox 93 04/11/20 08:00 04/10/20 04/11/20 04/11/20 22:59 06:59 14:59 Intake Total 200 / 200 2240 / 2240 Balance 200 / 200 2240 / 2240 Weight last 48 hrs Weight 96.36 kg Weight 81.647 kg Data : 04/11/20 04:06 04/11/20 04:06 Coding Level of Care Code Acute Distillation Operator Helper for Hai Tucker
--- NOTE | 2020-04-11 11:14 | PM.DCS ---
Discharge Providers Date of Admission: 04/11/20 00:00 Date of Discharge: April 11, 2020 Attending Provider at Admission: Yris Conteh MD Attending Provider at Discharge: Rahul De La Torre MD Diagnoses at Discharge Discharge Diagnosis (1) Altered mental status: Status: Resolved Qualifiers: Altered mental status type: unspecified Qualified Code(s): R41.82 - Altered mental status, unspecified (2) Mitral valve replaced: Status: Chronic Problem details: -mechanical valve (3) Hypertension: Status: Chronic Qualifiers: Hypertension type: essential hypertension Qualified Code(s): I10 - Essential (primary) hypertension (4) GERD (gastroesophageal reflux disease): Status: Chronic Qualifiers: Esophagitis presence: esophagitis presence not specified Qualified Code(s): K21.9 - Gastro-esophageal reflux disease without esophagitis (5) Hypothyroidism: Status: Chronic Qualifiers: Hypothyroidism type: unspecified Qualified Code(s): E03.9 - Hypothyroidism, unspecified Reason for Visit Reason for Visit: thinks he had a stroke Hospital Course Hospital Course: 50-year-old male with PMH of HTN and S/P [place] MVR came with chief complaint of acute onset of confusion of unclear etiology of 1 day duration. He was worked up for acute encephalopathy during this hospital stay. no overt indication of infection, no focal neurological deficits other than minimally diminished gross sensation and strength on the left lower extremity.Has history of prior stroke-CT head unremarkable for any acute findings, CTA head/neck-35% stenosis of proximal L ICA.Noted non-compliance with medications including anticoagulation with Coumadin which he is on due to mechanical mitral valve; INR slightly subtherapeutic at 2.20 on admission ; warfarin was continued as per the recommended dose. Repeat INR was therapeutic. negative UDS, EtOH level. Troponins noted with no significant delta. Echo was done report is awaited. Patient was awake alert oriented. And he wished his desire to be discharged home. Our current plan is to discharge him today. He will continue to follow-up with his primary care physician. Physical Exam Const: COMMON NORMALS: patient oriented x3 HENMT: COMMON NORMALS: normocephalic, atraumatic, hearing grossly normal bilaterally and external ears normal HEAD & SCALP: normocephalic and atraumatic EXTERNAL EAR: Yes external ears normal Eye: COMMON NORMALS: no scleral icterus GENERAL EYE: appearance normal, both eyes and all related structures Chest: COMMONS NORMALS: normal inspection of the chest and normal palpation of entire chest wall CHEST: Yes Symmetrical chest wall rise Resp: COMMON NORMALS: normal respiratory effort, No retractions, No use of accessory muscles and clear to auscultation bilaterally EFFORT & INSPECTION: Yes symmetric chest movement AUSCULTATION: clear to auscultation bilaterally Cardio: COMMON NORMALS: regular rate, regular rhythm, S1 normal heart sound present, S2 normal heart sound present, No gallops present (Cardio), No murmurs present (Cardio), No rub (Cardio) and Peripheral pulses 2+ throughout RATE: regular rate RHYTHM: regular rhythm HEART SOUNDS: S1 normal heart sound present and S2 normal heart sound present PERIPHERAL PULSES: Peripheral pulses 2+ throughout GI: COMMON NORMALS: Normal to inspection, nondistended, normoactive bowel sounds present, Soft to palpation, non-tender, No hepatosplenomegaly present and no masses AUSCULTATION: Yes normoactive bowel sounds PALPATION: Yes Soft to palpation and Yes No hepatosplenomegaly present RECTAL EXAM: Yes deferred Extremity: COMMON NORMALS: no clubbing, cyanosis or edema and no pedal edema Neuro: COMMON NORMALS: patient oriented x3 Discharge Data Data Completed and Pending: Completed Studies During Hospitalization Category Date Time Status CT angio headneck * [id number] Urge nt Cat Scan 04/10/20 20:[address] head wo con* [id number] Stat Cat Scan 04/10/20 19:51 Completed XR chest 1V [place] [id number] Stat Exams 04/10/20 19:51 Completed Pending at discharge Category Date Time Status CV echo complete* [id number] Urgent Ultrasound 04/11/20 08:00 Ordered Labs from last 24 hours 04/11/20 04/11/20 04/11/20 04:06 04:06 04:06 WBC RBC Hgb Hct MCV MCH MCHC RDW Plt Count MPV Neut % (Auto) Lymph % (Auto) [place] % (Auto) Eos % (Auto) Baso % (Auto) Neut # (Auto) Lymph # (Auto) [place] # (Auto) Eos # (Auto) Baso # (Auto) Nucleated RBC % (a uto) Nucleated RBCs # PT 29.10 H INR 2.64 H Sodium Potassium Chloride Carbon Dioxide Anion Gap BUN Creatinine GFR Calculation Glucose Estimat Average Gl ucose 94 Hemoglobin A1c 4.9 Calculated Osmolal ity Calcium Magnesium Total Bilirubin AST ALT Alkaline Phosphata se Creatine Kinase Troponin T Baselin e Troponin T 120 Min [place] Delta Troponin T Troponin T Hi Sens 6Hr Troponin T Hi Sens 6Hr Delta Total Protein Albumin Globulin Triglycerides 216 H Cholesterol 140 LDL Cholesterol, C alc 67 HDL Cholesterol 30 L LDL/HDL Ratio 2.23 Cholesterol/HDL Ra edgar 4.67 TSH 2.30 Urine Color Urine Appearance Urine pH Ur Specific Gravit y Urine Protein Urine Glucose (UA) Urine Ketones Urine Blood Urine Nitrate Urine Bilirubin Urine Urobilinogen Ur Leukocyte Ruchi ase Urine Opiates Scre en Ur Barbiturates Sc reen Ur Phencyclidine S crn Ur Amphetamines Sc reen U Benzodiazepines Scrn Urine Cocaine Scre en U Marijuana (THC) Screen Ethyl Alcohol 04/11/20 04/11/20 04/11/20 04:06 04:06 04:06 WBC 8.7 RBC 4.18 Hgb 13.8 Hct 41.1 L MCV 98.3 H MCH 33.0 MCHC 33.6 RDW 12.4 Plt Count 197 MPV 10.6 H Neut % (Auto) 56.6 Lymph % (Auto) 25.3 [place] % (Auto) 10.4 Eos % (Auto) 6.7 Baso % (Auto) 0.8 Neut # (Auto) 4.93 Lymph # (Auto) 2.2 [place] # (Auto) 0.9 Eos # (Auto) 0.6 Baso # (Auto) 0.1 Nucleated RBC % (a uto) 0 Nucleated RBCs # 0.0 PT INR Sodium 139 Potassium 4.0 Chloride 107 Carbon Dioxide 24 Anion Gap 12.0 BUN 9 Creatinine 1.0 GFR Calculation 78.5 L Glucose 103 Estimat Average Gl ucose Hemoglobin A1c Calculated Osmolal ity 284 L Calcium 9.0 Magnesium Total Bilirubin AST ALT Alkaline Phosphata se Creatine Kinase Troponin T Baselin e Troponin T 120 Min [place] Delta Troponin T Troponin T Hi Sens 6Hr 6.77 Troponin T Hi Sens 6Hr Delta -1.23 L Total Protein Albumin Globulin Triglycerides Cholesterol LDL Cholesterol, C alc HDL Cholesterol LDL/HDL Ratio Cholesterol/HDL Ra edgar TSH Urine Color Urine Appearance Urine pH Ur Specific Gravit y Urine Protein Urine Glucose (UA) Urine Ketones Urine Blood Urine Nitrate Urine Bilirubin Urine Urobilinogen Ur Leukocyte Ruchi ase Urine Opiates Scre en Ur Barbiturates Sc reen Ur Phencyclidine S crn Ur Amphetamines Sc reen U Benzodiazepines Scrn Urine Cocaine Scre en U Marijuana (THC) Screen Ethyl Alcohol 04/10/20 04/10/20 04/10/20 21:30 21:30 21:24 WBC RBC Hgb Hct MCV MCH MCHC RDW Plt Count MPV Neut % (Auto) Lymph % (Auto) [place] % (Auto) Eos % (Auto) Baso % (Auto) Neut # (Auto) Lymph # (Auto) [place] # (Auto) Eos # (Auto) Baso # (Auto) Nucleated RBC % (a uto) Nucleated RBCs # PT INR Sodium Potassium Chloride Carbon Dioxide Anion Gap BUN Creatinine GFR Calculation Glucose Estimat Average Gl ucose Hemoglobin A1c Calculated Osmolal ity Calcium Magnesium Total Bilirubin AST ALT Alkaline Phosphata se Creatine Kinase Troponin T Baselin e Troponin T 120 Min [place] Delta Troponin T Troponin T Hi Sens 6Hr Troponin T Hi Sens 6Hr Delta Total Protein Albumin Globulin Triglycerides Cholesterol LDL Cholesterol, C alc HDL Cholesterol LDL/HDL Ratio Cholesterol/HDL Ra edgar TSH Urine Color Yellow Urine Appearance Clear Urine pH 5 Ur Specific Gravit y 1.005 Urine Protein Neg Urine Glucose (UA) Norm Urine Ketones Negative Urine Blood Neg Urine Nitrate Negative Urine Bilirubin Neg Urine Urobilinogen Norm Ur Leukocyte Ruchi ase Negative Urine Opiates Scre en Negative Ur Barbiturates Sc reen Negative Ur Phencyclidine S crn Negative Ur Amphetamines Sc reen Negative U Benzodiazepines Scrn Negative Urine Cocaine Scre en Negative U Marijuana (THC) Screen Negative Ethyl Alcohol < 10 04/10/20 04/10/20 04/10/20 20:45 20:24 20:24 WBC RBC Hgb Hct MCV MCH MCHC RDW Plt Count MPV Neut % (Auto) Lymph % (Auto) [place] % (Auto) Eos % (Auto) Baso % (Auto) Neut # (Auto) Lymph # (Auto) [place] # (Auto) Eos # (Auto) Baso # (Auto) Nucleated RBC % (a uto) Nucleated RBCs # PT INR Sodium 136 Potassium 4.2 Chloride 102 Carbon Dioxide 24 Anion Gap 14.2 BUN 9 Creatinine 0.9 GFR Calculation 88.6 L Glucose 94 Estimat Average Gl ucose Hemoglobin A1c Calculated Osmolal ity 278 L Calcium 9.3 Magnesium 1.9 Total Bilirubin 0.4 AST 20 ALT 15 Alkaline Phosphata se 79 Creatine Kinase 140 Troponin T Baselin e 8 Troponin T 120 Min [place] 6.21 Delta Troponin T -1.79 L Troponin T Hi Sens 6Hr Troponin T Hi Sens 6Hr Delta Total Protein 7.4 Albumin 4.7 Globulin 2.7 Triglycerides Cholesterol LDL Cholesterol, C alc HDL Cholesterol LDL/HDL Ratio Cholesterol/HDL Ra edgar TSH Urine Color Urine Appearance Urine pH Ur Specific Gravit y Urine Protein Urine Glucose (UA) Urine Ketones Urine Blood Urine Nitrate Urine Bilirubin Urine Urobilinogen Ur Leukocyte Ruchi ase Urine Opiates Scre en Ur Barbiturates Sc reen Ur Phencyclidine S crn Ur Amphetamines Sc reen U Benzodiazepines Scrn Urine Cocaine Scre en U Marijuana (THC) Screen Ethyl Alcohol 04/10/20 04/10/20 20:24 20:24 WBC 8.7 RBC 4.76 Hgb 15.6 Hct 46.4 MCV 97.5 H MCH 32.8 MCHC 33.6 RDW 12.0 L Plt Count 236 MPV 10.5 H Neut % (Auto) 50.7 Lymph % (Auto) 31.0 [place] % (Auto) 10.1 Eos % (Auto) 7.1 Baso % (Auto) 0.9 Neut # (Auto) 4.42 Lymph # (Auto) 2.7 [place] # (Auto) 0.9 Eos # (Auto) 0.6 Baso # (Auto) 0.1 Nucleated RBC % (a uto) 0 Nucleated RBCs # 0.0 PT 25.20 H INR 2.20 H Sodium Potassium Chloride Carbon Dioxide Anion Gap BUN Creatinine GFR Calculation Glucose Estimat Average Gl ucose Hemoglobin A1c Calculated Osmolal ity Calcium Magnesium Total Bilirubin AST ALT Alkaline Phosphata se Creatine Kinase Troponin T Baselin e Troponin T 120 Min [place] Delta Troponin T Troponin T Hi Sens 6Hr Troponin T Hi Sens 6Hr Delta Total Protein Albumin Globulin Triglycerides Cholesterol LDL Cholesterol, C alc HDL Cholesterol LDL/HDL Ratio Cholesterol/HDL Ra edgar TSH Urine Color Urine Appearance Urine pH Ur Specific Gravit y Urine Protein Urine Glucose (UA) Urine Ketones Urine Blood Urine Nitrate Urine Bilirubin Urine Urobilinogen Ur Leukocyte Ruchi ase Urine Opiates Scre en Ur Barbiturates Sc reen Ur Phencyclidine S crn Ur Amphetamines Sc reen U Benzodiazepines Scrn Urine Cocaine Scre en U Marijuana (THC) Screen Ethyl Alcohol Vitals: Last Vital Signs Temp 98.6 F 04/11/20 08:00 Pulse 81 04/11/20 08:00 Resp 18 04/11/20 08:00 BP 129/77 04/11/20 08:00 Pulse Ox 93 04/11/20 08:00 Discharge Plan Discharge Patient Disposition: Home Condition: Stable Prescriptions: Continued amlodipine 10 mg tablet 10 mg PO DAILY Qty: 90 RF: 3 warfarin 5 mg tablet 5 mg PO DAILY Qty: 30 RF: 5 warfarin 6 mg tablet 6 mg PO DAILY Qty: 30 RF: 5 Stool Softener 100 mg Capsule 100 mg PO DAILY RF: 0 Prilosec OTC 20 mg Tablet,Delayed Release (Dr/Ec) 20 mg PO DAILY RF: 0 Discharge Orders: Discharge Order (Routine); Ordered 04/11/20 Ordered By: Rahul De La Torre Discharge Diet: Usual diet Discharge Activity: Resume usual activity Patient Instructions: Mitral Valve Replacement (DC), Diverticulosis (DC), Hypothyroidism (DC), Gastroesophageal Reflux Disease (DC), Chronic Hypertension (DC), Altered Mental Status (GEN) Discharge Attestations Time Spent in Discharge Care*: greater than 30 min Specific Discharge Activities: Specific discharge activities: educating patient, discussing with case packer/social workers/dc planners, documenting/other paperwork and evaluating patient/reviewing data Status at Discharge: Cognitive status at discharge: cognitively intact, Behavioral status at discharge: cooperative, Quality Metrics Clinical Quality Measures During this hospital stay, did patient experience: None Coding Level of Care Code Acute Supplier Quality Specialist for [facility] Fwd Exam Comprehensive Diagnoses Altered mental status R41.82 Altered mental status type: unspecified Mitral valve replaced Z95.2 Hypertension I10 Hypertension type: essential hypertension GERD (gastroesophageal reflux disease) K21.9 Esophagitis presence: esophagitis presence not specified Hypothyroidism E03.9 Hypothyroidism type: unspecified
--- NOTE | 2020-04-11 14:43 | PC.OT ---
OT screen completed this morning. Pt independently ambulated to and from bathroom, completed donning/doffing shoes, washed hands at sink. No loss of balance or apparent difficulty. No OT recommended at this time.
--- NOTE | 2020-04-12 15:19 | PC.RESP ---
Smoking Cessation information and a schedule of classes sent to patient.
== END 2020-04-11 13:43 | disposition home or self-care (01) ==
LOC: ER 04-11 00:16 → MEDSURG 04-11 00:46
PROVIDERS: Emergency Medicine; Admitting Provider Family Medicine; Visit Provider Internal Medicine
DX: R41.0 Disorientation, unspecified (principal); I10 Essential (primary) hypertension; E03.9 Hypothyroidism, unspecified; Z86.73 Personal history of transient ischemic attack (TIA), and cerebral infarction without residual deficits; F17.210 Nicotine dependence, cigarettes, uncomplicated; Z79.01 Long term (current) use of anticoagulants; Z95.4 Presence of other heart-valve replacement; K21.9 Gastro-esophageal reflux disease without esophagitis
CPT/HCPCS: 12345; 36415; 70450; 70496; 70498; 71045; 80048; 80053; 80061; 80306; 80307; 81003; 82550; 83036; 83735; 84443; 84484; 85025; 85610; 92523; 93005; 93306; 96360; 96361; 99284; 99285; G0378; J7030; Q9967

== ENCOUNTER 2020-04-20 10:45 | Emergency (ER) | payer SELFPAY ==
[2020-04-20 11:08] VITALS: BP 157/80; PULSE 93; RESP 20; TEMP 36.9; O2SAT 95; BMI 25.7
[2020-04-20 11:50] VITALS: BP 127/86; PULSE 90; RESP 20; O2SAT 96
--- NOTE | 2020-04-20 12:00 | W.ED.EXTPRO ---
HPI - Extremity Problem General: Chief complaint: Extremity Problem,Nontraumatic Stated complaint: R ANKLE PAIN Time Seen by Provider: 04/20/20 11:58 History of Present Illness: HPI Narrative: Was in hospital last week and here today because he has on his right lower leg area that is tender and slightly swollen hurts he said when he walks Complaint: other (Swelling to skin right lower leg times couple days) Onset (ago): day(s) Pain Consistency: constant Location: right and lower extremity Severity scale (1-10): 3 Quality: burning and aching Radiation: none Relieving factors: immobilization Exacerbating factors: weight bearing Associated symptoms: Reports no associated symptoms; Deny fever(s) Context: recent illness Review of Systems Const: Denies: fever(s) or chills Skin/Breast: Reports: skin pain, skin tenderness and skin swelling (Right lower extremity with some bruising to foot) Psych: Denies: anxiety or depression PFS ED PFSH: Medical History (Updated 04/20/20 @ 12:03 by ZACK Boss) Chronic anticoagulation -On Coumadin CVA (cerebral vascular accident) Diverticulosis GERD (gastroesophageal reflux disease) Hypertension Hypothyroidism Surgical History (Updated 04/19/20 @ 13:27 by Jos Jackson M.D) H/O hemorrhoidectomy H/O wrist surgery -right Hx of tracheostomy Mitral valve replaced -mechanical valve Family History Other Stroke Social History Smoking and tobacco status: current every day smoker cigarettes Packs smoked per day: 2 Alcohol intake: never Household members: family Marital status: Current occupational status: employed 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 Tender to the touch slightly warm little redness and then has some bruising down to his foot calf is nontender no swelling rest leg appears normal) Psych: COMMON NORMALS: mental status grossly normal Course Vital Signs: Vital signs: Vital Signs Temperature 98.4 F 04/20/20 11:08 Pulse Rate 90 04/20/20 12:27 Respiratory Rate 20 H 04/20/20 12:27 Blood Pressure 127/86 04/20/20 12:27 Pulse Oximetry 96 04/20/20 12:27 Discharge Plan Discharge Patient Disposition: Home Clinical Impression: Superficial thrombophlebitis Qualifiers: Superficial thrombophlebitis-Involved body area: lower extremity Laterality: right Qualified Code(s): I80.01 - Phlebitis and thrombophlebitis of superficial vessels of right lower extremity Condition: Stable Prescriptions: New Keflex 500 mg capsule 500 mg PO TID 7 Days Qty: 21 RF: 0 Medrol (Remigio) 4 mg tablets,dose pack See Rx Instructions .ROUTE .COMPLEX Qty: 21 RF: 0 tramadol 50 mg tablet 50 mg PO Q6H PRN (Reason: pain) Qty: 14 RF: 0 No Action warfarin 6 mg tablet 6 mg PO DAILY Qty: 30 RF: 5 amlodipine 10 mg tablet 10 mg PO DAILY Qty: 90 RF: 3 warfarin 5 mg tablet 5 mg PO DAILY Qty: 30 RF: 5 Stool Softener 100 mg Capsule 100 mg PO DAILY RF: 0 Prilosec OTC 20 mg Tablet,Delayed Release (Dr/Ec) 20 mg PO DAILY RF: 0 Discharge Orders: Discharge Order (Routine); Ordered 04/20/20 Ordered By: Samy Buckley Discharge Diet: Usual diet Discharge Activity: Increase activity as tolerated Patient Instructions: Superficial Thrombophlebitis (ED) Activity Restrictions/Additional Instructions: Follow-up with medical provider as directed. Take medications as prescribed. Return to the ER or your medical provider if condition worsens. Please read and understand discharge instructions. If any questions ask please. Discharge Date/Time: 04/20/20 12:27 Coding Level of Care Code ED Highway Traffic Control Technician for [facility] Fwd Exam Expanded Problem Focused
[2020-04-20 12:27] VITALS: BP 127/86; PULSE 90; RESP 20; O2SAT 96
== END 2020-04-20 12:27 | disposition home or self-care (01) ==
PROVIDERS: Emergency Provider Nurse Practitioner Family
DX: I80.01 Phlebitis and thrombophlebitis of superficial vessels of right lower extremity (principal); Z79.01 Long term (current) use of anticoagulants; Z86.73 Personal history of transient ischemic attack (TIA), and cerebral infarction without residual deficits; I10 Essential (primary) hypertension; F17.210 Nicotine dependence, cigarettes, uncomplicated
CPT/HCPCS: 12345; 99281

== ENCOUNTER → 2020-06-21 10:41 | Outpatient (BNVA) | payer SELFPAY | PROVIDERS: Visit Provider Internal Medicine | DX: Z79.01 Long term (current) use of anticoagulants (principal); Z95.2 Presence of prosthetic heart valve | CPT/HCPCS: 85610 ==

== ENCOUNTER 2021-01-10 12:11 | Emergency (ER) | payer SELFPAY ==
[2021-01-10 13:06] VITALS: BP 134/82; PULSE 80; RESP 16; TEMP 36.6; O2SAT 98; BMI 25.0
--- NOTE | 2021-01-10 13:18 | XR_ITS ---
WS: [id number] Exam: XR chest 1V portable [id number] Date/Time of Exam: 01/10/2021 1:18 PM Reason For Exam: chest pain Comparison 04/10/2020. Plaque atelectasis in the right base. The lungs are fully inflated. No consolidating infiltrates. Hea rt size is normal. The mediastinum is not widened. There are signs of previous median sternotomy and cardiac valve replacement. Regional bony elements are intact. XR/XR chest 1V portable [id number] IMPRESSION: 1. Plaque atelectasis in the right lower lung zone. No acute process noted.
[2021-01-10 13:28] LABS: Basophils # 0.1 10^3/uL (0.0-0.1); Basophils % 0.7 %; Eosinophils # 0.8 10^3/uL (0.0-0.8); Eosinophils % 8.2 %; Hematocrit 46.7 % (42.0-52.0); Hemoglobin 15.7 g/dL (11.7-16.6); Lymphocytes # 2.3 10^3/uL (0.8-4.8); Lymphocytes % 24.3 %; Mean Corpuscular HGB Conc 33.6 g/dL (30.0-36.0); Mean Corpuscular Hemoglobin 33.3 pg (28.0-34.0); Mean Corpuscular Volume 98.9 fL (80-94); Mean Platelet Volume 10.3 fL (7.4-10.4); Monocytes # 0.9 10^3/uL (0.2-0.9); Monocytes % 9.1 %; Neutrophils # 5.45 10^3/uL (1.8-7.7); Neutrophils % 57.5 %; Nucleated Red Blood Cells % 0 %; Platelet Count 211 10^3/cmm (130-400); Red Blood Count 4.72 10^6/uL (4.1-5.3); Red Cell Distribution Width 12.2 % (12.1-15.1); White Blood Count 9.5 10^3/uL (4.0-10.0)
[2021-01-10 13:50] LABS: Troponin(5th) Baseline 6 ng/L (0-15)
[2021-01-10 13:51] LABS: Alanine Aminotransferase 13 U/L (0-41); Albumin Level 4.2 g/dL (3.5-5.2); Alkaline Phosphatase 80 IU/L (40-130); Anion Gap 11.5 (5-19); Aspartate Amino Transferase 19 U/L (0-40); Blood Urea Nitrogen 12 mg/dL (6-20); Calcium 9.1 mg/dL (8.5-10.5); Carbon Dioxide 25 mmol/L (22-29); Chloride 106 mmol/L (98-107); Globulin 2.4 g/dL (1.3-4.6); Glomerular Filtration Rate 88.3 mL/min (90-130); Glucose 97 mg/dL (65-115); Osmolality Calculated 286 mOsm/kg (285-295); Potassium 4.5 mmol/L (3.5-5.1); Sodium 138 mmol/L (136-145); Total Bilirubin 0.5 mg/dL (0.15-1.2); Total Protein 6.6 g/dL (6.6-8.7)
[2021-01-10 16:45] LABS: Troponin 5 2HR Delta 0 ABS# (0-10)
== END 2021-01-10 17:39 | disposition left against medical advice (07) ==
PROVIDERS: Family Medicine
DX: Z53.21 Procedure and treatment not carried out due to patient leaving prior to being seen by health care provider (principal)
CPT/HCPCS: 36415; 71045; 80053; 84484; 85025; 99282

== ENCOUNTER → 2021-01-12 08:53 | Outpatient (BNVA) | payer SELFPAY | PROVIDERS: Visit Provider Internal Medicine | DX: Z79.01 Long term (current) use of anticoagulants (principal); Z95.2 Presence of prosthetic heart valve | CPT/HCPCS: 85610 ==

== ENCOUNTER → 2021-01-19 08:39 | Outpatient (BNVA) | payer SELFPAY | PROVIDERS: Visit Provider Internal Medicine | DX: Z95.2 Presence of prosthetic heart valve (principal) | CPT/HCPCS: 85610 ==

== ENCOUNTER → 2021-02-16 09:21 | Outpatient (BNVA) | payer SELFPAY | PROVIDERS: Visit Provider Internal Medicine | DX: Z79.01 Long term (current) use of anticoagulants (principal); Z95.2 Presence of prosthetic heart valve | CPT/HCPCS: 85610 ==

== ENCOUNTER → 2021-02-23 09:55 | Outpatient (BNVA) | payer SELFPAY | PROVIDERS: Visit Provider Internal Medicine | DX: Z79.01 Long term (current) use of anticoagulants (principal); Z95.2 Presence of prosthetic heart valve | CPT/HCPCS: 85610 ==

== ENCOUNTER 2021-04-26 15:36 | Emergency (ER) | payer OTHER, SELFPAY ==
[2021-04-26 15:55] VITALS: BP 151/93; PULSE 83; RESP 28; TEMP 36.7; O2SAT 97; BMI 26.4
--- NOTE | 2021-04-26 17:05 | XRR_ITS ---
PROCEDURE INFORMATION: Exam: XR Left Foot Exam date and time: 04/26/2021 5:05 PM Age: 51 years old Clinical indication: Injury or trauma; Blunt trauma; Injury details: Fall. Left ankle edema. ; Additional info: Pain TECHNIQUE: Imaging protocol: XR Left foot. Views: 3 or more views. Total images: 3 COMPARISON: No relevant prior studies available. FINDINGS: Bones/joints: No visible acute osseous abnormality, fracture, subluxation, or dislocation. No radiographically visible joint effusion. Soft tissues: Mild ankle soft tissue swelling. XR/XR foot LT min 3V* [id number] IMPRESSION: 1. No visible fracture. 2. Mild ankle soft tissue swelling.
--- NOTE | 2021-04-26 18:21 | ED_ITS ---
HPI - Fall General: Chief Complaint: Fall Stated Complaint: Injury to L foot from fall Time Seen by Provider: 04/26/21 18:21 History of Present Illness: HPI Narrative: A 51-year-old male patient comes in today with complaints of injury to the left ankle. Patient reports he was stepping down off the running board of his truck when he twisted his left ankle. Patient appears well. Patient appears in mild to moderate pain. No acute distress is noted. Review of Systems General: Reports: 10 or more systems reviewed and unremarkable except in HPI and below Musc: Reports: other (Left ankle injury) PFS ED PFSH: Medical History Chronic anticoagulation -On Coumadin CVA (cerebral vascular accident) Diverticulosis GERD (gastroesophageal reflux disease) Hypertension Hypothyroidism Surgical History H/O hemorrhoidectomy H/O wrist surgery -right Hx of tracheostomy Mitral valve replaced -mechanical valve Family History Other Stroke Social History Smoking and tobacco status: current every day smoker cigarettes Packs smoked per day: 2 Alcohol intake: never Household members: family Marital status: Current occupational status: employed 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 Physical Exam Const: COMMON NORMALS: no acute distress and patient oriented x3 GENERAL APPEARANCE: cooperative HENMT: COMMON NORMALS: normocephalic and Normal external nose present HEAD & SCALP: normal to inspection and normocephalic NOSE: Normal external nose present Eye: GENERAL EYE: appearance normal, both eyes and all related structures Neck/C-Spine: COMMON NORMALS: full ROM Chest: COMMONS NORMALS: normal inspection of the chest Resp: COMMON NORMALS: normal respiratory effort EFFORT & INSPECTION: Yes able to speak in complete sentences Cardio: COMMON NORMALS: regular rate and regular rhythm RATE: regular rate RHYTHM: regular rhythm GI: COMMON NORMALS: non-tender Extremity: NARRATIVE EXTREMITY EXAM: Significant swelling is noted to the lateral left ankle. Distal pulses and Sensation is intact. Distal cap refill is intact. Neuro: COMMON NORMALS: patient oriented x3 and moves all extremities Psych: COMMON NORMALS: mental status grossly normal and cooperative Skin: COMMON NORMALS: no rashes or lesions noted GENERAL SKIN EXAM: no rashes or lesions noted Course Vital Signs: Vital signs: Vital Signs Temperature 98.1 F 04/26/21 15:55 Pulse Rate 83 04/26/21 15:55 Respiratory Rate 28 H 04/26/21 15:55 Blood Pressure 151/93 04/26/21 15:55 Pulse Oximetry 97 04/26/21 15:55 MDM - Fall 2 MDM Narrative: Medical decision making narrative: Patient comes in today for complaints of injury to the left ankle. On exam we note significant swelling to the lateral ankle. Distal cap refill and sensation is intact. Differential diagnosis includes fracture, sprain, contusion. X-ray noted no acute fracture. Reviewed exam with patient with recommendations for treatment and follow-up. Patient reported understanding and agreed to plan. Discharge Plan Discharge Patient Disposition: Home Clinical Impression: Left ankle sprain Qualifiers: Encounter type: initial encounter Involved ligament of ankle: unspecified ligament Qualified Code(s): S93.402A - Sprain of unspecified ligament of left ankle, initial encounter Condition: Stable Prescriptions: No Action warfarin 6 mg tablet 6 mg PO DAILY Qty: 30 RF: 5 warfarin 5 mg tablet 5 mg PO DAILY Qty: 30 RF: 5 amlodipine 10 mg tablet 10 mg PO DAILY Qty: 90 RF: 0 Stool Softener 100 mg Capsule 100 mg PO DAILY RF: 0 Prilosec OTC 20 mg Tablet,Delayed Release (Dr/Ec) 20 mg PO DAILY RF: 0 Discharge Orders: Discharge ED (Routine); Ordered 04/26/21 Ordered By: Antonio Lew Referrals: Hermelinda Headley FNP [Primary Care Provider] - Discharge Diet: Usual diet Discharge Activity: Increase activity as tolerated Patient Instructions: Ankle Sprain (ED), Opioid Safety Activity Restrictions/Additional Instructions: Elevate and ice ankle. Use crutches until you can bear weight comfortably. Wear a Asad wrap around the ankle until swelling resolves. Then use premade stirrup splint to help support the ankle for the next 4 to 6 weeks. Follow-up with primary care in 3-5 days for recheck if no improvement is noted in the ankle. You may need to have a repeat x-ray for reevaluation for occult fractures. Return to the ER for new concerns or worsening symptoms. Stand Alone Forms: Work/School Release Coding Level of Care Code ED Scheduling Clerk for [facility]
[2021-04-26] MEDS: HYDROcodone-acetaminophen 7.5-325 mg Tablet 1 TAB PO (18:55)
== END 2021-04-26 18:59 | disposition home or self-care (01) ==
PROVIDERS: Emergency Provider Nurse Practitioner Family; PCP Nurse Practitioner Family
DX: S93.402A Sprain of unspecified ligament of left ankle, initial encounter (principal); Z79.01 Long term (current) use of anticoagulants; Z86.73 Personal history of transient ischemic attack (TIA), and cerebral infarction without residual deficits; I10 Essential (primary) hypertension; F17.210 Nicotine dependence, cigarettes, uncomplicated; X50.1XXA Overexertion from prolonged static or awkward postures, initial encounter
CPT/HCPCS: 29515; 73630; 99283; E0114

== ENCOUNTER 2021-05-02 08:30 | Emergency (ER) | payer SELFPAY ==
[2021-05-02 08:40] VITALS: BMI 26.4
[2021-05-02 08:47] VITALS: BP 174/104; PULSE 79; RESP 14; TEMP 36.1; O2SAT 99
--- NOTE | 2021-05-02 08:47 | XR_ITS ---
WS: [id number] XR ankle LT min 3V* [id number] REASON FOR EXAM: twisted ankle going down steps 1 week ago FINDINGS: Soft tissue swelling around the left ankle joint. The ankle mortise is preserved but narrowed. No fracture or other focal bone abnormality identified. No soft tissue abnormality XR/XR ankle LT min 3V* [id number] IMPRESSION: No acute abnormality. 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
--- NOTE | 2021-05-02 09:03 | ED_ITS ---
HPI - Extremity Problem General: Chief complaint: Extremity Injury, Lower Stated complaint: L ANKLE INJURY Time Seen by Provider: 05/02/21 08:32 History of Present Illness: HPI Narrative: Patient is a 51-year-old male comes to the ED with left ankle pain and swelling. Patient was seen here for same complaint approximately 1 week ago. Approximately 1 week ago he was stepping off his truck when he hit the step he rolled his ankle. Patient with a sprain and discharged home on some crutches and Asad wrap bandage. Patient says his swelling has improved but he still is having a lot of pain in left ankle and unable to bear weight. Associated symptoms: Deny chest pain, fever(s) or rash Review of Systems Const: Denies: fever(s), chills or fatigue Eyes: Denies: change in vision or eye discomfort ENMT: Denies: throat pain, odynophagia, nasal discharge or nasal congestion Card: Denies: chest pain, palpitations, edema, swelling of feet/ankles, dyspnea on exertion or orthopnea Resp: Denies: dyspnea, productive cough or non-productive cough GI: Denies: abdominal pain, nausea, vomiting, diarrhea, constipation or hematochezia : Denies: flank pain, difficulty urinating, dysuria or hematuria Musc: Reports: extremity pain (left ankle), extremity swelling (left ankle), joint pain (left ankle) and limited range of motion (left ankle); Denies: neck pain or back pain Skin/Breast: Denies: rash or new lesions Neuro: Denies: headache(s), numbness in extremities or weakness in extremities PFSH ED PFSH: Medical History Chronic anticoagulation -On Coumadin CVA (cerebral vascular accident) Diverticulosis GERD (gastroesophageal reflux disease) Hypertension Hypothyroidism Surgical History H/O hemorrhoidectomy H/O wrist surgery -right Hx of tracheostomy Mitral valve replaced -mechanical valve Family History Other Stroke Social History Smoking and tobacco status: current every day smoker cigarettes Packs smoked per day: 2 Alcohol intake: never Household members: family Marital status: Current occupational status: employed 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 Physical Exam Const: COMMON NORMALS: no acute distress, patient oriented x3 and alert GENERAL APPEARANCE: cooperative and comfortable HENMT: COMMON NORMALS: normocephalic HEAD & SCALP: normocephalic MOUTH: Normal oral and palatal mucosa present THROAT: posterior oropharynx normal and uvula midline Neck/C-Spine: COMMON NORMALS: supple GENERAL: Yes normal visual inspection Resp: COMMON NORMALS: normal respiratory effort, No retractions, No use of accessory muscles and clear to auscultation bilaterally AUSCULTATION: clear to auscultation bilaterally Cardio: COMMON NORMALS: regular rate, regular rhythm, S1 normal heart sound present, S2 normal heart sound present, No gallops present (Cardio), No clicks present (Cardio), No murmurs present (Cardio) and Peripheral pulses 2+ throughout RATE: regular rate RHYTHM: regular rhythm HEART SOUNDS: S1 normal heart sound present and S2 normal heart sound present PERIPHERAL PULSES: Peripheral pulses 2+ throughout GI: COMMON NORMALS: Normal to inspection, nondistended, normoactive bowel sounds present, Soft to palpation, non-tender and no masses PALPATION: Yes Soft to palpation : COMMON NORMALS: Yes no CVA tenderness BLADDER/KIDNEY EXAM: Yes no CVA tenderness Back/Pelvis: COMMON NORMALS: no CVA tenderness Extremity: GENERAL: Yes normal exam except as noted LEFT LOWER EXTREMITY: Yes ankle joint Left ankle: Yes inspection (No visible deformity-significant amount of swelling and ecchymosis ), Yes palpation (tenderness of lateral malleolus), Yes ROM (limited ROM due to pain) and Yes neurovascular exam (Intact) Neuro: COMMON NORMALS: patient oriented x3 and moves all extremities SENSORIUM/ORIENTATION: Yes alert Skin: GENERAL SKIN EXAM: dry skin Course Vital Signs: Vital signs: Vital Signs Temperature 97.0 F L 05/02/21 08:47 Pulse Rate 79 05/02/21 08:47 Respiratory Rate 14 05/02/21 08:47 Blood Pressure 174/104 05/02/21 08:47 Pulse Oximetry 99 05/02/21 08:47 MDM - Extremity (Nontraumatic) MDM Narrative: Medical decision making narrative: Patient is a 51-year-old male comes to the ED with left ankle injury. Patient was seen here in the ED back on April 26 and diagnosed with a left ankle sprain. Patient is still having significant swelling, ecchymosis and is unable to bear weight on left ankle. He has minimal range of motion in left ankle due to pain. X-ray left ankle shows no acute fractures does note some mild osteoarthropathy in the tibiotalar joint. Due to patient's exam and clinical presentation I am going to refer him to case management to see orthopedic for further evaluation. Patient was placed in a posterior leg splint with a stirrup and told to not weight-bear and use crutches. 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 Return to ED precautions given. Patient understood and agreed with plan. Imaging Data^: Xray Ortho: Attestation: I personally reviewed and interpreted this imaging study as follows: Radiologist's impression: [address] [id number] ReportSigned Patient: Vel Barnard #: [id number]: 1970Acct#:[id number]/Sex: 51 / MADM Date: 05/02/21Loc: ERRoom/Bed:Attending Dr: Ordering Provider/Ordering MD: Augustine Molina Date of Service: 05/02/21 Procedure(s): XR ankle LT min 3V* 78820 Accession Number(s): [id number] Report Number: [id number] WS: [id number] XR ankle LT min 3V* [id number] REASON FOR EXAM: twisted ankle going down steps 1 week ago FINDINGS: Soft tissue swelling around the left ankle joint. The ankle mortise is preserved but narrowed. No fracture or other focal bone abnormality identified. No soft tissue abnormality XR/XR ankle LT min 3V* [id number] IMPRESSION: No acute abnormality. 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 Dictated By:Yury Roblero Jr MDSigned By:Yury Roblero Jr MDSigned Date/Time:05/02/2102DD/ 0859 Discharge Plan Discharge Patient Disposition: Home Clinical Impression: Left ankle sprain Qualifiers: Encounter type: subsequent encounter Involved ligament of ankle: anterior talofibular ligament Qualified Code(s): S93.492D - Sprain of other ligament of left ankle, subsequent encounter Condition: Stable Prescriptions: No Action warfarin 6 mg tablet 6 mg PO DAILY Qty: 30 RF: 5 warfarin 5 mg tablet 5 mg PO DAILY Qty: 30 RF: 5 amlodipine 10 mg tablet 10 mg PO DAILY Qty: 90 RF: 0 Stool Softener 100 mg Capsule 100 mg PO DAILY RF: 0 Prilosec OTC 20 mg Tablet,Delayed Release (Dr/Ec) 20 mg PO DAILY RF: 0 Discharge Orders: Discharge ED (Routine); Ordered 05/02/21 Ordered By: Augustine Molina Referrals: Hermelinda Headley FNP [Primary Care Provider] - Discharge Diet: Regular Discharge Activity: Limit activity as instructed and Use walker/crutches as instructed Patient Instructions: Ankle Sprain (ED), Ankle Stirrup Splint (ED) Activity Restrictions/Additional Instructions: Follow-up with medical provider as directed. Case management will be contacting you in the next several days set up an appoint with orthopedic doctor. Continue using crutches and limit any weightbearing on left foot to help with symptoms. Return to the ER or your medical provider if condition worsens. Please read and understand discharge instructions. Thank you for choosing [facility] for your healthcare needs today. Please realize this is an emergency room and that we are providing you with a medical screening exam and this may not be complete and all inclusive of all the testing and or work up that you may need to determine your ailment or severity of your illness. It is very important that you follow up as instructed or that you return to the Emergency Department should you have concerns or if your condition changes or worsens in any way. Stand Alone Forms: Work/School Release Coding Level of Care Code ED Medical Practitioners for [facility] Fwjose Exam Comprehensive
--- NOTE | 2021-05-02 09:55 | DCPLANNER ---
risk management manager had message to schedule a follow up appointment for patient with ortho. risk management manager called the ortho clinic, spoke with Emy, gave clinic patients information. risk management manager was told that patients information would be printed and reviewed. Clinic will call patient with appointment information.
--- NOTE | 2021-05-05 15:05 | DCPLANNER ---
Patient had a follow up appointment scheduled for 05.02.[address] Cook at [facility] - patient did attend appointment.
== END 2021-05-02 09:49 | disposition home or self-care (01) ==
PROVIDERS: Emergency Provider Physician Assistant; PCP Nurse Practitioner Family
DX: S93.492A Sprain of other ligament of left ankle, initial encounter (principal); Z79.01 Long term (current) use of anticoagulants; Z86.73 Personal history of transient ischemic attack (TIA), and cerebral infarction without residual deficits; I10 Essential (primary) hypertension; F17.210 Nicotine dependence, cigarettes, uncomplicated; X50.1XXA Overexertion from prolonged static or awkward postures, initial encounter
CPT/HCPCS: 29515; 73610; 99283

== ENCOUNTER → 2021-08-10 10:59 | Outpatient (BNVA) | payer SELFPAY | PROVIDERS: PCP Nurse Practitioner Family; Visit Provider Nurse Practitioner Family | DX: Z20.822 Contact with and (suspected) exposure to COVID-19 (principal); I10 Essential (primary) hypertension; I63.9 Cerebral infarction, unspecified; Z95.2 Presence of prosthetic heart valve; Z72.0 Tobacco use | CPT/HCPCS: 87635; 87801 ==

== ENCOUNTER 2021-09-25 10:45 | Emergency (ER) | payer OTHER, SELFPAY ==
[2021-09-25 11:00] VITALS: BP 171/95; PULSE 90; RESP 14; TEMP 36.8; O2SAT 98; BMI 26.4
--- NOTE | 2021-09-25 11:17 | W.ED.DENTAL ---
HPI - Dental/Oral General: Chief complaint: Dental/Oral Stated complaint: Bad tooth ache Time Seen by Provider: 09/25/21 10:53 History of Present Illness: Patient is a 51-year-old male who comes to the ED with dental pain. Patient chipped tooth several months ago but did not going to see dentist at that time. That has not been bothering him much for the past couple months. Yesterday he started feeling some pain left lower mandible where he had chipped tooth. Today patient woke up and pain was worse. Denies any shortness of breath, fever, chills, nausea/vomiting. Associated symptoms: Denies fever(s) or odynophagia Review of Systems Const: Denies: fever(s), chills or fatigue Eyes: Denies: change in vision or eye discomfort ENMT: Reports: dental pain; Denies: throat pain, odynophagia, nasal discharge or nasal congestion Card: Denies: chest pain, palpitations, edema, swelling of feet/ankles, dyspnea on exertion or orthopnea Resp: Denies: dyspnea, productive cough or non-productive cough GI: Denies: abdominal pain, nausea, vomiting, diarrhea, constipation or hematochezia : Denies: flank pain, difficulty urinating, dysuria or hematuria Musc: Denies: neck pain, back pain or extremity swelling Skin/Breast: Denies: rash or new lesions Neuro: Denies: headache(s), numbness in extremities or weakness in extremities [facility] ED PFSH: Medical History Chronic anticoagulation -On Coumadin CVA (cerebral vascular accident) Diverticulosis GERD (gastroesophageal reflux disease) Hypertension Hypothyroidism Surgical History H/O hemorrhoidectomy H/O wrist surgery -right Hx of tracheostomy Mitral valve replaced -mechanical valve Family History Other Stroke Social History Alcohol intake: never Household members: family Marital status: Current occupational status: employed 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 Physical Exam Const: COMMON NORMALS: no acute distress, patient oriented x3 and alert HENMT: COMMON NORMALS: normocephalic HEAD & SCALP: normocephalic MOUTH: Normal oral and palatal mucosa present TEETH & GINGIVA: Yes caries THROAT: posterior oropharynx normal and uvula midline Neck/C-Spine: COMMON NORMALS: supple GENERAL: Yes normal visual inspection Resp: COMMON NORMALS: normal respiratory effort, No retractions, No use of accessory muscles and clear to auscultation bilaterally AUSCULTATION: clear to auscultation bilaterally Cardio: COMMON NORMALS: regular rate, regular rhythm, S1 normal heart sound present, S2 normal heart sound present, No gallops present (Cardio), No clicks present (Cardio), No murmurs present (Cardio) and Peripheral pulses 2+ throughout RATE: regular rate RHYTHM: regular rhythm HEART SOUNDS: S1 normal heart sound present and S2 normal heart sound present PERIPHERAL PULSES: Peripheral pulses 2+ throughout GI: COMMON NORMALS: Normal to inspection, nondistended, normoactive bowel sounds present, Soft to palpation, non-tender and no masses PALPATION: Yes Soft to palpation : COMMON NORMALS: Yes no CVA tenderness BLADDER/KIDNEY EXAM: Yes no CVA tenderness Back/Pelvis: COMMON NORMALS: no CVA tenderness Extremity: COMMON NORMALS: normal to inspection Neuro: COMMON NORMALS: patient oriented x3 and moves all extremities SENSORIUM/ORIENTATION: Yes alert Skin: GENERAL SKIN EXAM: dry skin Course Vital Signs: Vital signs: Vital Signs Temperature 98.3 F 09/25/21 11:00 Pulse Rate 86 09/25/21 11:31 Respiratory Rate 14 09/25/21 11:31 Blood Pressure 136/78 09/25/21 11:31 Pulse Oximetry 98 09/25/21 11:31 [facility] - Dental/Oral Medical Decision Making Patient is a 51-year-old male comes to the ED with dental pain. Vitals are stable. Patient appears in no acute distress or pain. He was sent home with a prescription for clindamycin and told to follow-up with his dentist as soon as possible to further manage dental pain. Return to ED precautions given. Patient understood and agreed with plan. Discharge Plan Discharge Patient Disposition: Home Clinical Impression: Pain, dental Condition: Stable Prescriptions: New clindamycin HCl 150 mg capsule 300 mg PO QID 7 Days Qty: 56 0RF No Action celecoxib [Celebrex] 200 mg capsule 200 mg PO DAILY Qty: 14 0RF amlodipine 10 mg tablet 10 mg PO DAILY Qty: 90 0RF warfarin 5 mg tablet 5 mg PO DAILY Qty: 30 5RF Protocol: Dose Management Condition: Sunday Dose/Route: 5 mg Instruction: 1 x 5 mg tablet Condition: Sunday Dose/Route: 5 mg Instruction: 1 x 5 mg tablet Condition: Sunday Dose/Route: 6 mg Instruction: 1 x 6 mg tablet Condition: Sunday Dose/Route: 5 mg Instruction: 1 x 5 mg tablet Condition: Dose/Route: 6 mg Instruction: 1 x 6 mg tablet Condition: Sunday Dose/Route: 5 mg Instruction: 1 x 5 mg tablet Condition: Sunday Dose/Route: 6 mg Instruction: 1 x 6 mg tablet Protocol Text: Adjustment Start Date: Sunday02/23/21 INR Value: 33.7 Seconds INR Date: 02/23/21 Recheck Date: 03/09/21 Rx Instructions: take 5 mg on SUNDAY, SUNDAY, SUNDAY, SUNDAY AND SUNDAY. warfarin 6 mg tablet 6 mg PO DAILY Qty: 30 5RF Protocol: Dose Management Condition: Sunday Dose/Route: 5 mg Instruction: 1 x 5 mg tablet Condition: Sunday Dose/Route: 5 mg Instruction: 1 x 5 mg tablet Condition: Sunday Dose/Route: 6 mg Instruction: 1 x 6 mg tablet Condition: Sunday Dose/Route: 5 mg Instruction: 1 x 5 mg tablet Condition: Dose/Route: 6 mg Instruction: 1 x 6 mg tablet Condition: Sunday Dose/Route: 5 mg Instruction: 1 x 5 mg tablet Condition: Sunday Dose/Route: 6 mg Instruction: 1 x 6 mg tablet Protocol Text: Adjustment Start Date: Sunday02/23/21 INR Value: 33.7 Seconds INR Date: 02/23/21 Recheck Date: 03/09/21 Rx Instructions: take 6mg on Sunday and Sunday Stool Softener 100 mg Capsule 100 mg PO DAILY 0RF Prilosec OTC 20 mg Tablet,Delayed Release (Dr/Ec) 20 mg PO DAILY 0RF Discharge Orders: Discharge ED (Routine); Ordered 09/25/21 Ordered By: Augustine Molina Referrals: Hermelinda Headley FNP [Primary Care Provider] - Discharge Diet: Regular Discharge Activity: Increase activity as tolerated Activity Restrictions/Additional Instructions: Follow-up with dentist as soon as possible for further management of dental pain. Take medications as prescribed. Take [id number] Tylenol to help with pain. Return to the ER or your medical provider if condition worsens. Please read and understand discharge instructions. Thank you for choosing [facility] for your healthcare needs today. Please realize this is an emergency room and that we are providing you with a medical screening exam and this may not be complete and all inclusive of all the testing and or work up that you may need to determine your ailment or severity of your illness. It is very important that you follow up as instructed or that you return to the Emergency Department should you have concerns or if your condition changes or worsens in any way. Coding Level of Care Code ED Shingler for Hai Tucker
[2021-09-25] MEDS: HYDROcodone-acetaminophen 7.5-325 mg Tablet 1 TAB PO (11:28)
[2021-09-25] MEDS: clindamycin 150 mg Capsule 300 MG PO (11:28)
[2021-09-25 11:31] VITALS: BP 136/78; PULSE 86; RESP 14; O2SAT 98
== END 2021-09-25 11:32 | disposition home or self-care (01) ==
PROVIDERS: Emergency Provider Physician Assistant; PCP Nurse Practitioner Family
DX: K08.89 Other specified disorders of teeth and supporting structures (principal); Z79.01 Long term (current) use of anticoagulants; Z86.73 Personal history of transient ischemic attack (TIA), and cerebral infarction without residual deficits; I10 Essential (primary) hypertension
CPT/HCPCS: 99283

== ENCOUNTER → 2021-11-08 09:02 | Outpatient (BNVA) | payer OTHER, SELFPAY | PROVIDERS: PCP Nurse Practitioner Family; Visit Provider Internal Medicine | DX: Z95.2 Presence of prosthetic heart valve (principal); I35.1 Nonrheumatic aortic (valve) insufficiency | CPT/HCPCS: 85610 ==

== ENCOUNTER → 2021-11-15 08:48 | Outpatient (BNVA) | payer OTHER, SELFPAY | PROVIDERS: PCP Nurse Practitioner Family; Visit Provider Internal Medicine | DX: Z95.2 Presence of prosthetic heart valve (principal) | CPT/HCPCS: 85610 ==

== ENCOUNTER → 2022-02-13 09:44 | Outpatient (BNVA) | payer OTHER, SELFPAY | PROVIDERS: PCP Nurse Practitioner Family | DX: Z95.2 Presence of prosthetic heart valve (principal) | CPT/HCPCS: 85610 ==

== ENCOUNTER → 2022-02-27 08:54 | Outpatient (BNVA) | payer OTHER, SELFPAY | PROVIDERS: PCP Nurse Practitioner Family; Visit Provider Internal Medicine Cardiovascular Disease | DX: Z95.2 Presence of prosthetic heart valve (principal) | CPT/HCPCS: 85610 ==

== ENCOUNTER → 2022-03-06 09:15 | Outpatient (BNVA) | payer OTHER, SELFPAY | PROVIDERS: PCP Nurse Practitioner Family; Visit Provider Internal Medicine Cardiovascular Disease | DX: Z95.2 Presence of prosthetic heart valve (principal); I34.0 Nonrheumatic mitral (valve) insufficiency; Z79.01 Long term (current) use of anticoagulants | CPT/HCPCS: 85610 ==

== ENCOUNTER → 2022-05-08 16:23 | Outpatient (BNVA) | payer OTHER, SELFPAY | PROVIDERS: PCP Nurse Practitioner Family; Visit Provider Family Medicine | DX: E03.9 Hypothyroidism, unspecified (principal); K92.1 Melena; I10 Essential (primary) hypertension; F17.200 Nicotine dependence, unspecified, uncomplicated; M54.2 Cervicalgia; Z95.2 Presence of prosthetic heart valve | CPT/HCPCS: 80053; 80061; 84439; 84443; 85025 ==

== ENCOUNTER 2022-05-24 05:40 | Day surgery (SDC) | payer OTHER, SELFPAY ==
[2022-05-22 07:57] VITALS: BMI 26.4
[2022-05-24 06:02] VITALS: BP 155/106; PULSE 82; RESP 18; TEMP 36.6; O2SAT 96
[2022-05-24] MEDS: sodium chloride 0.9% 1,000 ML 30 ML IV (06:23)
--- NOTE | 2022-05-24 07:03 | P.ANESASSM_ITS ---
Pre-Anesthetic Assessment Height/Weight: Height 1.8 m Weight 86.183 kg Temp Pulse Resp BP Pulse Ox O2 Del Method 97.9 F 82 18 155/106 96 05/24/22 06:02 05/24/22 06:02 05/24/22 06:02 05/24/22 06:02 05/24/22 06:02 05/24/22 06:02 Operation Date: 05/24/22 07:00 Proposed Procedures p EGD/colonoscopy 25118,15638,K92.1,K21.9(Not Applicable) - Karsten Galo DO s Colonoscopy(Not Applicable) - Karsten Galo DO Familial anesthetic complications: None Was Beta Grisel taken within 24 hours: N/A Was Clonidine taken within 24 hours: N/A Last intake: Intake Last Liquid Date 05/23/22 Last Liquid Time 22:00 Last Solid Date 05/22/22 Last Solid Time 18:00 Social Tobacco and No alcohol 1.5 pack(s) per day 44 pack years Exam alert, oriented x 3, clear to auscultation bilaterally and regular rate & rhythm Airway Submandibular: within normal limits Cervical ROM: within normal limits Mallampati: Class I Dentition: chipped History/ROS No significant history except as noted Pulmonary Shortness of Breath SOB WITH ACTIVITY, NO CP OR SYNCOPE CV/HEM Hypertension MITRAL VALVE IN 2011 None reported Hepatic None reported GI Gastroesophageal Reflux Disease Metabolic None reported Musc/skel None reported Neuropsych Cerebrovascular Accident PT STATES HE HAD STROKE IN 2018 AND 2019, NO RESIDUAL, ON WARFARIN (LAST DOSE 05/20/22) Anesthetic Plan ASA status: 3 Anesthesia: Anesthesia Evaluation Risk of > 500 ml blood loss (7ml/kg in children): No Medications/Allergies Home Medications Medication Instructions Recorded Confirmed Last Taken Type docusate sodium 100 mg capsule 100 mg PO DAILY 04/11/20 05/24/22 Unknown History (Stool Softener) omeprazole magnesium 20 mg 20 mg PO DAILY 04/11/20 05/24/22 05/23/22 History tablet,delayed release (Prilosec OTC) amlodipine 10 mg tablet 10 mg PO DAILY #90 tabs 05/08/22 05/24/22 05/24/22 Rx levothyroxine 200 mcg tablet 200 mcg PO DAILY #90 tabs 05/09/22 05/24/22 05/23/22 Rx (Synthroid) diclofenac sodium 1 % topical gel 4 g topical QID PRN Pain 05/22/22 05/24/22 Unknown History (Voltaren Arthritis Pain) warfarin 5 mg tablet See Rx Instructions .Route .COMPLEX 05/22/22 05/24/22 05/20/22 History warfarin 6 mg tablet See Rx Instructions .Route .COMPLEX 05/22/22 05/24/22 05/20/22 History Allergies Allergy/AdvReac Type Severity Reaction Status Date / Time egg Allergy Unknown Verified 05/24/22 05:58 Current Medications Generic Name Dose Route Start Last Admin Trade Name Freq PRN Reason Stop Dose Admin Sodium Chloride 1,000 mls @ 30 mls/hr 05/24/22 06:00 05/24/22 06:23 Sodium Chloride 0.9% IV 05/25/22 05:59 30 mls/hr .Q24H OMAR Administration PFSH Anesthesia Medical History (Updated 05/15/22 @ 13:45 by Karsten Galo DO) Chronic anticoagulation -On Coumadin CVA (cerebral vascular accident) Diverticulosis GERD (gastroesophageal reflux disease) Hypertension Hypothyroidism Tobacco use disorder, moderate, dependence Surgical History Aortic valve replaced H/O hemorrhoidectomy H/O wrist surgery -right Hx of tracheostomy Mitral valve replaced -mechanical valve Family History Other Stroke Social History Smoking and tobacco status: current every day smoker cigarettes Packs smoked per day: 2 Alcohol intake: never Household members: family Marital status: Current occupational status: employed 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
--- NOTE | 2022-05-24 07:03 | W.PM.OPSUD ---
Surgery/Procedure H&P Update DATE OF PROCEDURE: May 24, 2022 DATE H&P PERFORMED: 05/15/22 PLANNED PROCEDURE: Operation Date: 05/24/22 07:00 Proposed Procedures p EGD/colonoscopy 61348,76144,K92.1,K21.9(Not Applicable) - DO juvenal Paulino Colonoscopy(Not Applicable) - Karsten Galo DO
[2022-05-24 07:33] VITALS: BP 126/55; PULSE 92; RESP 18; TEMP 36.6; O2SAT 95
[2022-05-24 07:54] VITALS: BP 116/76; PULSE 97; RESP 18; TEMP 36.6; O2SAT 96
--- NOTE | 2022-05-24 17:30 | ANE.PACU2 ---
Inpatient post-anesthesia follow up: Airway intact: Yes Vital signs: Temperature 97.9 F Pulse Rate 97 Respiratory Rate 18 Blood Pressure 116/76 Pulse Oximetry 96 Oxygen Delivery Me thod Room Air Oxygen Flow Rate Fraction of Inspir ed Oxygen Hydration adequate: Yes Nausea and vomiting: No Pain level: 1 Mental status: Baseline
== END 2022-05-24 08:11 | disposition home or self-care (01) ==
PROVIDERS: PCP Nurse Practitioner Family; Visit Provider Surgery
PROC: 0DJ08ZZ Inspection of Upper Intestinal Tract, Via Natural or Artificial Opening Endoscopic (ICD-10-PCS; CPT 43235; principal; 2022-05-24 07:00)
PROC: 0DJD8ZZ Inspection of Lower Intestinal Tract, Via Natural or Artificial Opening Endoscopic (ICD-10-PCS; CPT 45378; 2022-05-24 07:00)
DX: K92.1 Melena (principal); K21.9 Gastro-esophageal reflux disease without esophagitis; K57.30 Diverticulosis of large intestine without perforation or abscess without bleeding; K64.9 Unspecified hemorrhoids; K22.10 Ulcer of esophagus without bleeding; K29.60 Other gastritis without bleeding; I10 Essential (primary) hypertension; Z86.73 Personal history of transient ischemic attack (TIA), and cerebral infarction without residual deficits; Z79.01 Long term (current) use of anticoagulants; Z82.3 Family history of stroke; F17.210 Nicotine dependence, cigarettes, uncomplicated
CPT/HCPCS: 43239; 45378; 88305; J2704; J7030

== ENCOUNTER 2022-06-19 07:51 | Outpatient (CLI) | payer OTHER, SELFPAY ==
--- NOTE | 2022-06-19 07:45 | USCV_ITS ---
Vel Barnard Age: 52 Gender: M : 1970 Exam Date: 06/19/2022 08:06 Ordering Phys: Jos Jackson M.D ([email or web address]) Technologist: Exam Location: [facility] [place] Indication: mechanical mitral pros BP: 125 / 71 HR: 76 Rhythm: Sinus Technical Quality: Good MEASUREMENTS (Male / Female) Normal Values 2D ECHO LV Diastolic Diameter PLAX 4.7 cm 4.2 - 5.9 / 3.9 - 5.3 cm LV Systolic Diameter PLAX 2.8 cm IVS Diastolic Thickness 1.2 cm 0.6 - 1.0 / 0.6 - 0.9 cm IVS Systolic Thickness 1.5 cm LVPW Diastolic Thickness 1.3 cm 0.6 - 1.0 / 0.6 - 0.9 cm LVPW Systolic Thickness 1.6 cm LVOT Diameter 2.0 cm LV Ejection Fraction 2D Teich 71.7 % LV Ejection Fraction MOD 2C 74.7 % LV Ejection Fraction 2C AL 76.1 % LA Diameter 4.3 cm Aorta at Sinotubular Diameter 2.8 cm IVC Diameter 1.7 cm M-MODE Aortic Annulus Diameter 3.3 cm LA Ao Ratio MM 1.4 DOPPLER MV Area PHT 2.1 cm squared Mitral E to A Ratio 1.6 MV E' Velocity 80.0 cm/s Mitral E to MV E' Ratio 15.8 Mitral E to LV E' Lateral Ratio 15.6 Mitral E to LV E' Septal Ratio 16.1 TR Peak Velocity 234.0 cm/s TR Peak Gradient 21.9 mmHg TV Peak E Velocity 128.0 cm/s Right Atrial Pressure 3.0 mmHg Pulmonary Artery Systolic Pressu 24.9 mmHg RV Acceleration Time 0.1 s FINDINGS Left Ventricle Left ventricle is normal in size. LV systolic function is normal with EF of 55-60%. No regional wall motion abnormalities. Right Ventricle Normal in size and function Right Atrium Normal in size Left Atrium Normal in size Mitral Valve Likely mechanical mitral valve is seen. No significant regurgitation. Mildly increased mean gradient of 5.2mmHg. Aortic Valve Structurally normal aortic valve. No significant stenosis or regurgitation. Tricuspid Valve Mild tricuspid regurgitation. Pulmonary artery systolic function is normal Pulmonic Valve Not well visualized. Pericardium Normal Aorta Normal in size IVC Appears to be normal CONCLUSIONS LV systolic function is normal with EF of 55-60%. Likely mechanical mitral valve is seen. No significant regurgitation. Mildly increased mean gradient of 5.2mmHg. Mild tricuspid regurgitation Compared to prior echocardiogram from 04/11/2020, no significant changes are seen Jos Jackson MD (Electronically Signed) Final Date: 25 June 2022 13:31 S
== END 2022-06-19 07:52 | disposition home or self-care (01) ==
LOC: RAD 07:51
PROVIDERS: PCP Nurse Practitioner Family; Visit Provider Internal Medicine
DX: R06.02 Shortness of breath (principal); I07.1 Rheumatic tricuspid insufficiency
CPT/HCPCS: 93306

== ENCOUNTER 2022-06-28 07:42 | Outpatient (CLI) | payer OTHER, SELFPAY ==
--- NOTE | 2022-06-28 08:15 | CT_ITS ---
WS: [id number] LDCT LUNG CANCER SCREENING TECHNIQUE: Noncontrast CT of the chest with coronal and sagittal reformatted images. CLINICAL INFORMATION: lung cancer screening COMPARISON: None. DLP: 76.49 mGy.cm DIvol: Mean CTDIvol: 1.60 (mGy) All CT scans at [facility] use at least one of these dose optimization techniques: automat ed exposure control; mA and/or kV adjustment per patient size (includes targeted exams where dose is matched to clinical indication); or iterative reconstruction. FINDINGS: Noncalcified subpleural nodule LEFT upper lobe measuring 6.3 mm. Slight bibasilar atelectasis. A few tiny 2-3 mm nodules in RIGHT upper lobe. Small nodule along the LEFT fissure measuring 3 mm. Calcifie d granuloma RIGHT upper lobe. Subsegmental atelectasis RIGHT middle lobe. Prior sternotomy. Mild aort ic calcification. No mediastinal or hilar lymphadenopathy. No axillary lymphadenopathy. Adrenal glands are normal. CT/CT lung screening [id number] IMPRESSION: Recommend 6 month follow-up 6.3 mm LEFT upper lobe subpleural nodul e LUNG-RADS: 3-Probably Benign FOLLOW UP: 6 Month LDCT
== END 2022-06-28 07:43 | disposition home or self-care (01) ==
LOC: RAD 07:42
PROVIDERS: PCP Nurse Practitioner Family; Visit Provider Family Medicine
DX: Z12.2 Encounter for screening for malignant neoplasm of respiratory organs (principal); F17.200 Nicotine dependence, unspecified, uncomplicated; Z95.2 Presence of prosthetic heart valve; I34.0 Nonrheumatic mitral (valve) insufficiency; Z79.01 Long term (current) use of anticoagulants
CPT/HCPCS: 71271; 85610

== ENCOUNTER → 2022-09-21 09:28 | Outpatient (BNVA) | payer OTHER, SELFPAY | PROVIDERS: PCP Nurse Practitioner Family; Visit Provider Internal Medicine | DX: Z95.2 Presence of prosthetic heart valve (principal) | CPT/HCPCS: 85610 ==

== ENCOUNTER 2022-10-08 11:53 | Emergency (ER) | payer OTHER, SELFPAY ==
[2022-10-08 12:06] VITALS: BP 157/90; PULSE 98; RESP 18; TEMP 36.4; O2SAT 98
[2022-10-08 12:36] VITALS: RESP 16
--- NOTE | 2022-10-08 13:04 | ED_ITS ---
HPI - Dental/Oral General: Chief complaint: Dental/Oral Stated complaint: tooth ache/facial swelling Time Seen by Provider: 10/08/22 12:15 Source: patient and family () Mode of arrival: ambulatory History of Present Illness: This 52-year-old male with a history of GERD, aortic valve replacement, hypertension and CVA, presents to the ER with dental pain that started 2 weeks ago. He was seen by urgent care 4 days ago and pre scribed amoxicillin and hydrocodone 5/325. Patient reports continuing pain despite taking those medications. Please schedule to have the tooth extraction by dentist on 10/18/2022. He currently rates the pain at 10 out of 10. He has no fever, nausea or vomiting. He appears clinically stable. Review of Systems General: Reports: 10 or more systems reviewed and unremarkable except in HPI and below ENMT: Reports: dental pain (left upper incissor) and halitosis [facility] ED PFSH: Medical History Chronic anticoagulation -On Coumadin CVA (cerebral vascular accident) Diverticulosis GERD (gastroesophageal reflux disease) Hypertension Hypothyroidism Tobacco use disorder, moderate, dependence Surgical History Aortic valve replaced H/O hemorrhoidectomy H/O wrist surgery -right Hx of tracheostomy Mitral valve replaced -mechanical valve Family History Other Hypertension Stroke Denies family history of Diabetes CAD (coronary artery disease) Clotting disorder Dementia Hyperlipidemia Chronic kidney disease (CKD) Anesthesia complication Bleeding disorder Lung disease Cancer Social History Smoking and tobacco status: current every day smoker cigarettes Packs smoked per day: 2 Alcohol intake: never Desire information about substance/drug rehabilitation?: No Household members: family Marital status: Current occupational status: employed 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 Tender to palpation. Fullness around the lips. No sign of abscess collection. Resp: COMMON NORMALS: normal respiratory effort, No retractions, No use of accessory muscles and clear to auscultation bilaterally AUSCULTATION: clear to auscultation bilaterally Cardio: COMMON NORMALS: regular rate, regular rhythm and No murmurs present (Cardio) RATE: regular rate RHYTHM: regular rhythm Psych: COMMON NORMALS: mental status grossly normal and cooperative Course Vital Signs: Vital signs: Vital Signs Temperature 97.5 F L 10/08/22 12:06 Pulse Rate 98 10/08/22 12:06 Respiratory Rate 16 10/08/22 12:36 Blood Pressure 157/90 10/08/22 12:06 Pulse Oximetry 98 10/08/22 12:06 Oxygen Delivery Me thod 10/08/22 12:06 MDM - Dental/Oral Medical Decision Making Medical decision making: Patient has a fracture at left upper incisor which is infected. He is currently taking amoxicillin and hydrocodone. Flagyl will be added. He is not showing any signs of systemic infection. From what reports, patient is afraid to brush his teeth around the area because it hurts. I made patient aware that he needs to maintain good oral hygiene by rinsing the mouth after every meal and brushing at least twice a day. If after adding Flagyl to his current regimen and infection does not improve over the next 2 to 3 days, he will probably need to be admitted for IV antibiotics. Patient verbalized understanding and agrees with the plan. Discharge Plan Discharge Patient Disposition: Home Clinical Impression: Dental infection, Fractured tooth Condition: Stable Prescriptions: New metronidazole 500 mg tablet 500 mg PO Q8H 10 Days Qty: 30 0RF No Action amlodipine 10 mg tablet 10 mg PO DAILY Qty: 90 3RF levothyroxine [Synthroid] 200 mcg tablet 200 mcg PO DAILY Qty: 90 1RF polyethylene glycol 3350 [Miralax] 17 gram/dose powder 17 g PO DAILY Qty: 238 0RF warfarin 5 mg tablet 5 mg PO DAILY Qty: 90 0RF Protocol: Dose Management Condition: Sunday Dose/Route: 5 mg Instruction: 1 x 5 mg tablet Condition: Sunday Dose/Route: 5 mg Instruction: 1 x 5 mg tablet Condition: Sunday Dose/Route: 5 mg Instruction: 1 x 5 mg tablet Condition: Sunday Dose/Route: 5 mg Instruction: 1 x 5 mg tablet Condition: Dose/Route: 5 mg Instruction: 1 x 5 mg tablet Condition: Sunday Dose/Route: 0 mg Instruction: 0 tablets Condition: Sunday Dose/Route: 5 mg Instruction: 1 x 5 mg tablet Protocol Text: Adjustment Start Date: 09/21/22 INR Value: 49.2 Seconds INR Date: 09/21/22 Recheck Date: 09/28/22 Rx Instructions: 5 mg orally ;take 5 mg on SUNDAY, SUNDAY, SUNDAY, SUNDAY AND SUNDAY. nicotine 21 mg/24 hr patch 24 hour 1 patch transdermal Q24H Qty: 28 0RF docusate sodium [Stool Softener] 100 mg Capsule 100 mg PO DAILY warfarin 6 mg tablet See Rx Instructions .ROUTE .COMPLEX Hold Instructions: Resume on 05/27/22. Protocol: Dose Management Condition: Sunday Dose/Route: 5 mg Instruction: 1 x 5 mg tablet Condition: Sunday Dose/Route: 5 mg Instruction: 1 x 5 mg tablet Condition: Sunday Dose/Route: 5 mg Instruction: 1 x 5 mg tablet Condition: Sunday Dose/Route: 5 mg Instruction: 1 x 5 mg tablet Condition: Dose/Route: 5 mg Instruction: 1 x 5 mg tablet Condition: Sunday Dose/Route: 0 mg Instruction: 0 tablets Condition: Sunday Dose/Route: 5 mg Instruction: 1 x 5 mg tablet Protocol Text: Adjustment Start Date: 09/21/22 INR Value: 49.2 Seconds INR Date: 09/21/22 Recheck Date: 09/28/22 Rx Instructions: 6 mg orally ;take 6mg on Sunday and Sunday warfarin 5 mg tablet See Rx Instructions .ROUTE .COMPLEX Hold Instructions: Resume on 05/27/22. Protocol: Dose Management Condition: Sunday Dose/Route: 5 mg Instruction: 1 x 5 mg tablet Condition: Sunday Dose/Route: 5 mg Instruction: 1 x 5 mg tablet Condition: Sunday Dose/Route: 5 mg Instruction: 1 x 5 mg tablet Condition: Sunday Dose/Route: 5 mg Instruction: 1 x 5 mg tablet Condition: Dose/Route: 5 mg Instruction: 1 x 5 mg tablet Condition: Sunday Dose/Route: 0 mg Instruction: 0 tablets Condition: Sunday Dose/Route: 5 mg Instruction: 1 x 5 mg tablet Protocol Text: Adjustment Start Date: 09/21/22 INR Value: 49.2 Seconds INR Date: 09/21/22 Recheck Date: 09/28/22 Rx Instructions: 5 mg orally ;take 5 mg on SUNDAY, SUNDAY, SUNDAY, SUNDAY AND SUNDAY. diclofenac sodium [Voltaren Arthritis Pain] 1 % gel 4 g topical QID PRN (Reason: Pain) Rx Instructions: apply to single knee, ankle, foot; for foot includes sole/toes/top of foot Discharge Orders: Discharge ED (Routine); Ordered 10/08/22 Ordered By: Mally Rivers Referrals: Anders Wynne MD [Primary Care Provider] - Discharge Diet: Usual diet Discharge Activity: Resume usual activity Patient Instructions: Opioid Safety, Pain Management Activity Restrictions/Additional Instructions: Take Flagyl as prescribed. Continue taking the amoxicillin you are ready have. Maintain good oral hygiene. Rinse your mouth after each meal and be sure to brush your teeth at least twice a day. Floss at least once daily. Follow-up with your primary care physician in 2 to 3 days. If the infection does not improve, he will need to be admitted for IV antibiotics. Follow-up with your dentist as already scheduled for tooth extraction. Return with new or worsening symptoms. Coding Level of Care Code ED Maintenance Engineer for Hai Tucker
[2022-10-08] MEDS: metroNIDAZOLE 500 MG Tablet PO (13:13)
== END 2022-10-08 13:16 | disposition home or self-care (01) ==
PROVIDERS: Emergency Provider Family Medicine; PCP Family Medicine
DX: K04.7 Periapical abscess without sinus (principal); S02.5XXA Fracture of tooth (traumatic), initial encounter for closed fracture; Z79.01 Long term (current) use of anticoagulants; F17.210 Nicotine dependence, cigarettes, uncomplicated; Z86.73 Personal history of transient ischemic attack (TIA), and cerebral infarction without residual deficits; I10 Essential (primary) hypertension; X58.XXXA Exposure to other specified factors, initial encounter
CPT/HCPCS: 99283

== ENCOUNTER → 2022-10-10 10:52 | Outpatient (BNVA) | payer OTHER, SELFPAY | PROVIDERS: PCP Family Medicine; Visit Provider Internal Medicine Cardiovascular Disease | DX: Z95.2 Presence of prosthetic heart valve (principal) | CPT/HCPCS: 36415; 85610 ==

== ENCOUNTER 2022-12-08 07:30 | Outpatient (CLI) | payer OTHER, SELFPAY ==
--- NOTE | 2022-12-08 07:45 | CT_ITS ---
WS: [id number] LDCT LUNG CANCER SCREENING HISTORY: pulmonary nodule TECHNIQUE: Axial imaging performed from the apices to 1 cm below the costophrenic angles. Coronal and sagittal reformats are submitted with axial MIP series. All CT scans at [facility] use at least one of these dose optimization techniques: automated exposure control; mA and/or kV adjustment per patient size (includes targeted exams where dose is matched to clinical indication); or iterativ e reconstruction. DLP: 71.57 mGy.cm DIvol: Mean CTDIvol: 1.30 (mGy) COMPARISON: 06/28/2022, 05/05/2014 Diagnostic quality: Satisfactory Lungs: Reidentified is a subpleural, noncalcified LEFT upper lobe pulmonary nodule measuring 7 mm in diameter. No increase in size. Mild dependent changes at the lung bases. Chronic subsegmental atelect asis RIGHT middle lobe. Calcified granuloma RIGHT upper lobe. Pulmonary hyperexpansion. Heart: Normal size heart with no pericardial effusion.. Other findings: Prior sternotomy and cardiac surgery. Small hiatal hernia. No adenopathy. Mild hepati c steatosis. Very small LEFT adrenal adenoma. CT/CT lung screening [id number] IMPRESSION: LUNG-RADS: 2-Benign Appearance or Behavior FOLLOW UP: 12 Month: Continue annual screening with LDCT OTHER FINDINGS (S MODIFIER): None.
== END 2022-12-08 07:31 | disposition home or self-care (01) ==
LOC: RAD 07:33
PROVIDERS: PCP Family Medicine; Visit Provider Family Medicine
DX: R91.1 Solitary pulmonary nodule (principal); F17.219 Nicotine dependence, cigarettes, with unspecified nicotine-induced disorders; Z91.89 Other specified personal risk factors, not elsewhere classified
CPT/HCPCS: 71271

== ENCOUNTER 2023-01-14 16:48 | Emergency (ER) | payer OTHER, SELFPAY ==
[2023-01-14 16:49] VITALS: BP 136/77; PULSE 81; RESP 17; TEMP 36.7; O2SAT 96; BMI 26.4
--- NOTE | 2023-01-14 17:09 | ED_ITS ---
HPI - Extremity Problem General: Chief complaint: Extremity Injury, Upper Stated complaint: right wrist swelling Time Seen by Provider: 01/14/23 17:02 History of Present Illness: 51-year-old male presents emergency room with right wrist pain for the past few days. Patient described the pain as throbbing/aching sensation with severity of 7 out of 10 mostly on the lateral aspect of the wrist. Increased pain with range of motion and rotation. 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 Denies any injury or fall. Patient reveals prior fracture to the area that required surgery about 3 years ago. No numbness or tingling of the fingers. Associated symptoms: Deny rash Review of Systems General: Reports: 10 or more systems reviewed and unremarkable except in HPI and below Musc: Reports: extremity swelling, joint pain, joint swelling and other (Spontaneous right wrist swelling and pain.); Denies: limited range of motion, decrease in muscle mass, loss of height or deformity Skin/Breast: Reports: skin swelling; Denies: rash, pruritus, erythema, photosensitivity, skin pain, sores, changing lesions, changes in skin color, surgical incision or nail changes PFSH ED PFSH: Medical History Chronic anticoagulation -On Coumadin CVA (cerebral vascular accident) Diverticulosis GERD (gastroesophageal reflux disease) Hypertension Hypothyroidism Tobacco use disorder, moderate, dependence Surgical History Aortic valve replaced H/O hemorrhoidectomy H/O wrist surgery -right Hx of tracheostomy Mitral valve replaced -mechanical valve Family History Other Hypertension Stroke Denies family history of Diabetes CAD (coronary artery disease) Clotting disorder Dementia Hyperlipidemia Chronic kidney disease (CKD) Anesthesia complication Bleeding disorder Lung disease Cancer Social History (Updated 01/01/23 @ 15:58 by Anna Jackson LPN) Smoking and tobacco status: current every day smoker cigarettes Packs smoked per day: 1 Alcohol intake: never Substance/Drug Use: never Desire information about substance/drug rehabilitation?: No Household members: family Marital status: Current occupational status: employed 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 Physical Exam Const: COMMON NORMALS: patient oriented x3 HENMT: COMMON NORMALS: normocephalic, atraumatic, hearing grossly normal bilaterally, external ears normal, EAC's normal, TM's normal bilaterally, Normal external nose present, Normal nasal mucous membranes and turbinates present, moist oral mucous membranes, oropharynx normal, dentition normal and gingiva normal HEAD & SCALP: normocephalic and atraumatic NOSE: Normal external nose present and Normal nasal mucous membranes and turbinates present EXTERNAL EAR: Yes external ears normal EXTERNAL AUDITORY CANAL: EAC's normal TYMPANIC MEMBRANE: TM's normal bilaterally Neck/C-Spine: COMMON NORMALS: no JVD Chest: COMMONS NORMALS: normal inspection of the chest, normal palpation of entire chest wall, normal inspection of the breasts and normal palpation of the breasts Breast/axilla inspection: Yes normal inspection of the breasts BREAST/AXILLA PALPATION: Yes normal palpation of the breasts Cardio: COMMON NORMALS: no JVD, regular rate, regular rhythm, S1 normal heart sound present, S2 normal heart sound present, No gallops present (Cardio), No clicks present (Cardio), No murmurs present (Cardio), No rub (Cardio) and Peripheral pulses 2+ throughout RATE: regular rate RHYTHM: regular rhythm HEART SOUNDS: S1 normal heart sound present and S2 normal heart sound present PERIPHERAL PULSES: Peripheral pulses 2+ throughout Extremity: RIGHT UPPER EXTREMITY: Yes wrist (Visible soft tissues swelling on the ulnar aspect of the wrist. No rash or) Right wrist: Yes inspection (No visible wound. Old surgical scar noted on the palmar aspect), Yes palpation (Mild tenderness with palpation.) and Yes neurovascular exam Neuro: COMMON NORMALS: patient oriented x3, CN's II-XII intact bilaterally, moves all extremities, no focal motor deficits, no sensory deficits noted, deep tendon reflexes 2+ bilaterally and gait normal Course Vital Signs: Vital signs: Vital Signs Temperature 98.0 F 01/14/23 16:49 Pulse Rate 81 01/14/23 16:49 Respiratory Rate 17 01/14/23 16:49 Blood Pressure 136/77 01/14/23 16:49 Pulse Oximetry 96 01/14/23 16:49 Oxygen Delivery Me thod Room Air 01/14/23 16:49 MDM - Extremity (Nontraumatic) Medical Decision Making Patient has been comfortable emergency room. X-ray was ordered. Discussed x- ray finding with the patient. Splint was applied. Close follow-up PCP recommended for evaluation and treatment. Medical Records I reviewed the patient's medical records. Lab Data Radiology Impressions Wrist X-Ray 01/14/23 17:27 IMPRESSION: 1. Degenerative and chronic changes as outlined. 2. No acute fractures. Discharge Plan Discharge Patient Disposition: Home Clinical Impression: Sprain and strain of wrist Condition: Stable Prescriptions: New Medrol (Remigio) 4 mg tablets,dose pack 4 mg PO QID Qty: 21 0RF naproxen 500 mg tablet 500 mg PO BID PRN (Reason: pain) Qty: 20 0RF No Action amlodipine 10 mg tablet 10 mg PO DAILY Qty: 90 3RF warfarin 5 mg tablet 5 mg PO DAILY Protocol: Dose Management Condition: Sunday Dose/Route: 5 mg Instruction: 1 x 5 mg tablet Condition: Sunday Dose/Route: 5 mg Instruction: 1 x 5 mg tablet Condition: Sunday Dose/Route: 5 mg Instruction: 1 x 5 mg tablet Condition: Sunday Dose/Route: 5 mg Instruction: 1 x 5 mg tablet Condition: Dose/Route: 5 mg Instruction: 1 x 5 mg tablet Condition: Sunday Dose/Route: 5 mg Instruction: 1 x 5 mg tablet Condition: Sunday Dose/Route: 5 mg Instruction: 1 x 5 mg tablet Protocol Text: Adjustment Start Date: Sunday10/10/22 INR Value: 65.7 Seconds INR Date: 10/10/22 Additional Instructions: In clinic INR result read 5.5. Sent Pt to [facility] main lab, and PTINR result is 3.31. Called and instructed Pt per protocol. Pt is within normal range. Pt reports he takes 5mg Warfarin QD. Pt states he has INR checked as needed. Instructed Pt to continue current dose. Pt verbalized understanding. Rx Instructions: 5 mg orally ;take 5 mg on SUNDAY, SUNDAY, SUNDAY, SUNDAY AND SUNDAY. polyethylene glycol 3350 [Miralax] 17 gram/dose powder 17 g PO DAILY Qty: 238 0RF bupropion HCl [Wellbutrin XL] 300 mg tablet extended release 24 hr 300 mg PO QAM Qty: 90 1RF levothyroxine [Synthroid] 200 mcg tablet 200 mcg PO DAILY Qty: 90 1RF docusate sodium [Stool Softener] 100 mg Capsule 100 mg PO DAILY diclofenac sodium [Voltaren Arthritis Pain] 1 % gel 4 g topical QID PRN (Reason: Pain) Rx Instructions: apply to single knee, ankle, foot; for foot includes sole/toes/top of foot Discharge Orders: Discharge ED (Routine); Ordered 01/14/23 Ordered By: Jeremy Hastings Referrals: Anders Wynne MD [Primary Care Provider] - Discharge Diet: Advance as tolerated Discharge Activity: Limit activity as instructed Patient Instructions: Opioid Safety, Pain Management Stand Alone Forms: Work/School Release Coding Level of Care Code ED Rabbit Breeder for Hai Tucker
--- NOTE | 2023-01-14 17:27 | XRR_ITS ---
PROCEDURE INFORMATION: Exam: XR Right Wrist Exam date and time: 01/14/2023 5:32 PM Age: 53 years old Clinical indication: Pain; Wrist; Right TECHNIQUE: Imaging protocol: Radiologic exam of the right wrist. Views: 3 or more views. COMPARISON: No relevant prior studies available. FINDINGS: Bones/joints: There are prominent degenerative changes of the right wrist joint marginal spurring and sclerosis at the distal radioulnar joint and associated dystrophic calcifications within the medial aspect of the wrist joint between the ulna and carpal bones and anterior to the distal radioulnar joint. Sesamoid bones are seen around the ulna. There is deformity of the ulnar styloid. Mild narrowing and sclerosis of the wrist joint at the radiocarpal joint. Mild degenerative changes of the carpometacarpal joints. Mild sclerosis along the distal ulna adjacent to the interosseous membrane. The osseous structures are otherwise intact. No evidence of acute fractures. Soft tissues: Mild soft tissue swelling is present. XR/XR wrist RT min 3V* [id number] IMPRESSION: 1. Degenerative and chronic changes as outlined. 2. No acute fractures.
[2023-01-14] MEDS: TRAMadol 50 mg Tablet PO (17:45)
== END 2023-01-14 18:53 | disposition home or self-care (01) ==
PROVIDERS: Emergency Provider Family Medicine; PCP Family Medicine
DX: S63.501A Unspecified sprain of right wrist, initial encounter (principal); S66.911A Strain of unspecified muscle, fascia and tendon at wrist and hand level, right hand, initial encounter; Z79.01 Long term (current) use of anticoagulants; F17.210 Nicotine dependence, cigarettes, uncomplicated; Z86.73 Personal history of transient ischemic attack (TIA), and cerebral infarction without residual deficits; I10 Essential (primary) hypertension; X58.XXXA Exposure to other specified factors, initial encounter
CPT/HCPCS: 73110; 99283

== ENCOUNTER → 2023-02-28 09:22 | Outpatient (BNVA) | payer OTHER, SELFPAY | PROVIDERS: PCP Family Medicine; Visit Provider Nurse Practitioner Family | DX: R07.81 Pleurodynia (principal) | CPT/HCPCS: 71046 ==

== ENCOUNTER 2023-04-16 08:24 | Emergency (ER) | payer OTHER, SELFPAY ==
--- NOTE | 2023-04-16 08:27 | XR_ITS ---
WS: [id number] XR shoulder LT min 2V* [id number] REASON FOR EXAM: injury FINDINGS: No fracture identified. The acromioclavicular joint space and the glenohumeral joint space are properly aligned. There is mod erate joint space narrowing with subchondral sclerosis and marginal osteophytosis in both joints. Clavicle and scapula are intact. No soft tissue abnormality. IMPRESSION: No fracture or dislocation. Osteoarthritis.
--- NOTE | 2023-04-16 08:38 | ED_ITS ---
HPI - Extremity Injury (Upper) General: Stated Complaint: left shoulder pain Time Seen by Provider: 04/16/23 08:25 Source: patient Mode of arrival: ambulatory Limitations: no limitations History of Present Illness: Patient is a nice 53-year-old male who presents to ED today with a complaint of left shoulder pain. He states approximately 2 days ago while working he was pushing something and felt a pop to the anterior aspect of his left shoulder. He states he has had discomfort since mainly with of motion, lifting, pushing. He has not noticed any redness or swelling to the joint or upper extremity. He denies numbness, tingling, loss of sensation, or weakness. He has no neck pain. No shortness of breath or difficulty breathing. Denies previous shoulder injuries. MD complaint: injury to: left and shoulder Onset (ago): day(s) Other Extremity Injury: Left: shoulder Other injuries: none Place: work Severity: moderate Relieving factors: immobilization Exacerbating factors: movement of extremity Associated symptoms: Reports no associated symptoms; Denies neck pain Review of Systems Card: Denies: chest pain Resp: Denies: dyspnea Musc: Reports: joint pain (L shoulder); Denies: neck pain, back pain, extremity pain, extremity swelling, joint swelling, joint redness or joint warmth Neuro: Denies: numbness in extremities or sensory changes PFSH ED PFSH: Medical History Chronic anticoagulation -On Coumadin CVA (cerebral vascular accident) Diverticulosis GERD (gastroesophageal reflux disease) Hypertension Hypothyroidism Tobacco use disorder, moderate, dependence Surgical History Aortic valve replaced H/O hemorrhoidectomy H/O wrist surgery -right Hx of tracheostomy Mitral valve replaced -mechanical valve Family History Other Hypertension Stroke Denies family history of Diabetes CAD (coronary artery disease) Clotting disorder Dementia Hyperlipidemia Chronic kidney disease (CKD) Anesthesia complication Bleeding disorder Lung disease Cancer Social History Smoking and tobacco status: current every day smoker cigarettes Packs smoked per day: 1 Alcohol intake: never Substance/Drug Use: never Desire information about substance/drug rehabilitation?: No Household members: family Marital status: Current occupational status: employed 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 Physical Exam Const: COMMON NORMALS: no acute distress, average body habitus, patient oriented x3, no limitations, healthy appearing, alert and well nourished Neck/C-Spine: COMMON NORMALS: full ROM GENERAL: Yes normal visual inspection CERVICAL SPINE: No Cervical spine tenderness, No Paracervical muscle tenderness, No Paracervical spasm and No Trapezius muscle tenderness Chest: COMMONS NORMALS: normal inspection of the chest and normal palpation of entire chest wall Resp: COMMON NORMALS: normal respiratory effort and clear to auscultation bilaterally AUSCULTATION: clear to auscultation bilaterally Back/Pelvis: COMMON NORMALS: thoracic and lumbar spine normal to inspection, no thoracic nor lumbar tenderness and thoraco-lumbar ROM normal Extremity: COMMON NORMALS: normal to inspection, capillary refill normal, no joint enlargement, no clubbing, cyanosis or edema, no calf tenderness and no pedal edema GENERAL: Yes normal exam except as noted LEFT UPPER EXTREMITY: Yes shoulder joint Left shoulder joint: Yes inspection (normal gross inspection), Yes palpation (TTP over anterior glenohumeral joint; AC joint), Yes ROM (limited ROM secondary to pain) and Yes neurovascular exam (normal) Neuro: COMMON NORMALS: patient oriented x3, moves all extremities, no focal motor deficits and no sensory deficits noted SENSORIUM/ORIENTATION: Yes alert Skin: COMMON NORMALS: no rashes or lesions noted GENERAL SKIN EXAM: no rashes or lesions noted MDM - Extremity Injury (Upper) Medical Decision Making XR normal. Recommend ice/heat we will place patient on anti-inflammatories and steroids. Recommend he follow-up primary care in 1 to 2 weeks if symptoms do not seem to be improving. Return ED precautions given. All radiology interpretation(s) finalized by discharge Discharge Plan Discharge Patient Disposition: Home Clinical Impression: Injury of left shoulder Qualifiers: Encounter type: initial encounter Qualified Code(s): S49.92XA - Unspecified injury of left shoulder and upper arm, initial encounter Condition: Stable Prescriptions: New diclofenac sodium 50 mg tablet,delayed release (DR/EC) 50 mg PO Q12H PRN (Reason: pain) Qty: 20 0RF Medrol (Remigio) 4 mg tablets,dose pack See Rx Instructions .ROUTE .COMPLEX Qty: 21 0RF Rx Instructions: orally per package directions Discontinued methylprednisolone [Medrol (Remigio)] 4 mg tablets,dose pack 4 mg PO QID Qty: 21 0RF naproxen 500 mg tablet 500 mg PO BID PRN (Reason: pain) Qty: 20 0RF No Action amlodipine 10 mg tablet 10 mg PO DAILY Qty: 90 3RF warfarin 5 mg tablet 5 mg PO DAILY Protocol: Dose Management Condition: Sunday Dose/Route: 5 mg Instruction: 1 x 5 mg tablet Condition: Sunday Dose/Route: 5 mg Instruction: 1 x 5 mg tablet Condition: Sunday Dose/Route: 5 mg Instruction: 1 x 5 mg tablet Condition: Sunday Dose/Route: 5 mg Instruction: 1 x 5 mg tablet Condition: Dose/Route: 5 mg Instruction: 1 x 5 mg tablet Condition: Sunday Dose/Route: 5 mg Instruction: 1 x 5 mg tablet Condition: Sunday Dose/Route: 5 mg Instruction: 1 x 5 mg tablet Protocol Text: Adjustment Start Date: Sunday10/10/22 INR Value: 65.7 Seconds INR Date: 10/10/22 Additional Instructions: In clinic INR result read 5.5. Sent Pt to [facility] [place] main lab, and PTINR result is 3.31. Called and instructed Pt per protocol. Pt is within normal range. Pt reports he takes 5mg Warfarin QD. Pt states he has INR checked as needed. Instructed Pt to continue current dose. Pt verbalized understanding. Rx Instructions: 5 mg orally ;take 5 mg on SUNDAY, SUNDAY, SUNDAY, SUNDAY AND SUNDAY. polyethylene glycol 3350 [Miralax] 17 gram/dose powder 17 g PO DAILY Qty: 238 0RF bupropion HCl [Wellbutrin XL] 300 mg tablet extended release 24 hr 300 mg PO QAM Qty: 90 1RF levothyroxine [Synthroid] 200 mcg tablet 200 mcg PO DAILY Qty: 90 1RF docusate sodium [Stool Softener] 100 mg Capsule 100 mg PO DAILY diclofenac sodium [Voltaren Arthritis Pain] 1 % gel 4 g topical QID PRN (Reason: Pain) Rx Instructions: apply to single knee, ankle, foot; for foot includes sole/toes/top of foot Discharge Orders: Discharge ED (Routine); Ordered 04/16/23 Ordered By: Sara Doyle Referrals: Anders Wynne MD [Primary Care Provider] - Patient Instructions: Shoulder Sprain (ED) Activity Restrictions/Additional Instructions: As we discussed if symptoms do not improve over the next 1 to 2 weeks with prescribed medication please follow-up with your primary care provider for further evaluation and treatment. Coding Level of Care Code ED Sodium Methylate Operator for Hai Tucker
[2023-04-16 08:44] VITALS: BP 142/81; PULSE 91; RESP 16; TEMP 36.7; O2SAT 95; BMI 26.4
[2023-04-16 08:58] VITALS: PULSE 79; RESP 16; O2SAT 96
== END 2023-04-16 09:00 | disposition home or self-care (01) ==
PROVIDERS: Emergency Provider Physician Assistant; PCP Family Medicine
DX: S49.92XA Unspecified injury of left shoulder and upper arm, initial encounter (principal); Z79.01 Long term (current) use of anticoagulants; F17.210 Nicotine dependence, cigarettes, uncomplicated; Z86.73 Personal history of transient ischemic attack (TIA), and cerebral infarction without residual deficits; I10 Essential (primary) hypertension; X50.9XXA Other and unspecified overexertion or strenuous movements or postures, initial encounter
CPT/HCPCS: 73030; 99283

== ENCOUNTER → 2023-04-23 08:39 | Outpatient (BNVA) | payer OTHER, SELFPAY | PROVIDERS: PCP Family Medicine; Visit Provider Internal Medicine | DX: Z95.2 Presence of prosthetic heart valve (principal) | CPT/HCPCS: 85610 ==

== ENCOUNTER → 2023-05-08 15:32 | Outpatient (BNVA) | payer OTHER, SELFPAY | PROVIDERS: PCP Family Medicine; Visit Provider Family Medicine | DX: K21.9 Gastro-esophageal reflux disease without esophagitis (principal); I10 Essential (primary) hypertension; E03.9 Hypothyroidism, unspecified; F17.200 Nicotine dependence, unspecified, uncomplicated; Z71.6 Tobacco abuse counseling; K64.9 Unspecified hemorrhoids | CPT/HCPCS: 80053; 80061; 84439; 84443; 85025 ==

== ENCOUNTER → 2023-05-25 09:58 | Outpatient (BNVA) | payer OTHER, SELFPAY | PROVIDERS: PCP Family Medicine; Visit Provider Internal Medicine Cardiovascular Disease | DX: Z95.2 Presence of prosthetic heart valve (principal) | CPT/HCPCS: 85610 ==

== ENCOUNTER → 2023-06-06 08:54 | Outpatient (BNVA) | payer OTHER, SELFPAY | PROVIDERS: PCP Family Medicine; Visit Provider Internal Medicine Cardiovascular Disease | DX: Z95.2 Presence of prosthetic heart valve (principal) | CPT/HCPCS: 85610 ==

== ENCOUNTER → 2023-06-13 14:29 | Outpatient (BNVA) | payer OTHER, SELFPAY | PROVIDERS: PCP Family Medicine; Visit Provider Internal Medicine Cardiovascular Disease | DX: Z95.2 Presence of prosthetic heart valve (principal) | CPT/HCPCS: 85610 ==

== ENCOUNTER → 2023-06-27 11:40 | Outpatient (BNVA) | payer OTHER, SELFPAY | PROVIDERS: PCP Family Medicine; Visit Provider Internal Medicine Cardiovascular Disease | DX: Z95.2 Presence of prosthetic heart valve (principal) | CPT/HCPCS: 85610 ==

== ENCOUNTER → 2023-07-11 10:24 | Outpatient (BNVA) | payer OTHER, SELFPAY | PROVIDERS: PCP Family Medicine; Visit Provider Internal Medicine Cardiovascular Disease | DX: Z95.2 Presence of prosthetic heart valve (principal) | CPT/HCPCS: 85610 ==

== ENCOUNTER 2023-08-05 17:50 | Emergency (ER) | payer OTHER, SELFPAY ==
[2023-08-05 18:13] VITALS: BP 176/96; PULSE 71; RESP 18; TEMP 36.3; O2SAT 98; BMI 26.4
--- NOTE | 2023-08-05 18:20 | XRR_ITS ---
PROCEDURE INFORMATION: Exam: XR Chest Exam date and time: 08/05/2023 6:30 PM Age: 53 years old Clinical indication: Shortness of breath; Prior surgery; Surgery date: 6+ months; Surgery type: Mitral valve; Patient HX: C/O SOB TECHNIQUE: Imaging protocol: Radiologic exam of the chest. Views: 1 view. COMPARISON: CR XR chest 2V* [id number] 02/28/2023 9:28 AM FINDINGS: Lungs: Mild bibasilar subsegmental atelectasis versus scarring. No consolidation. Pleural spaces: No substantial pleural effusion or pneumothorax. Heart/Mediastinum: No cardiomegaly. Prosthetic mitral valve. Bones/joints: Prior median sternotomy. XR/XR chest 1V portable [id number] IMPRESSION: No acute findings.
--- NOTE | 2023-08-05 18:23 | ED_ITS ---
HPI - Allergic Reaction 2 General: Chief complaint: Allergic Reaction Stated complaint: abd pain, sob, N/V Time Seen by Provider: 08/05/23 18:18 Source: patient Mode of arrival: ambulatory Limitations: no limitations History of Present Illness: HPI narrative: 53-year-old male has a history of allerg ies to eggs he states he had eaten a goose egg not thinking and he started feeling sick to his stomach having some shortness of breath denies any rash she did have 1 episode of vomiting denies any fevers denies any worsening proving factors. Associated symptoms: Deny abdominal pain, nausea or vomiting Review of Systems 2 Const: Denies: fever(s), chills, body aches or change in appetite ENMT: Denies: throat pain or dental pain Card: Denies: chest pain Resp: Reports: dyspnea GI: Denies: abdominal pain, nausea, vomiting or diarrhea Musc: Denies: neck pain or back pain Skin/Breast: Denies: rash Neuro: Denies: headache(s) PFSH ED 2 PFSH: Medical History Tobacco use disorder, moderate, dependence CVA (cerebral vascular accident) Chronic anticoagulation -On Coumadin Diverticulosis GERD (gastroesophageal reflux disease) Hypothyroidism Hypertension Surgical History Aortic valve replaced H/O hemorrhoidectomy Hx of tracheostomy H/O wrist surgery -right Mitral valve replaced -mechanical valve Family History Other Hypertension Stroke Denies family history of Diabetes CAD (coronary artery disease) Clotting disorder Dementia Hyperlipidemia Chronic kidney disease (CKD) Anesthesia complication Bleeding disorder Lung disease Cancer Social History Smoking and tobacco/nicotine status: current every day tobacco/nicotine user cigarettes Packs smoked per day: 1 Alcohol intake: never Substance/Drug Use: never Household members: family Marital status: Current occupational status: employed 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 Physical Exam 2 Const: COMMON NORMALS: no acute distress, patient oriented x3 and healthy appearing HENMT: COMMON NORMALS: normocephalic and atraumatic HEAD & SCALP: n ormocephalic and atraumatic Neck/C-Spine: COMMON NORMALS: full ROM and supple Chest: COMMONS NORMALS: normal inspection of the chest and normal palpation of entire chest wall Resp: COMMON NORMALS: normal respiratory effort, No retractions, No use of accessory muscles and clear to auscultation bilaterally AUSCULTATION: clear to auscultation bilaterally Cardio: COMMON NORMALS: regular rate, regular rhythm and No murmurs present (Cardio) RATE: regular rate RHYTHM: regular rhythm GI: COMMON NORMALS: Normal to inspection, nondistended, normoactive bowel sounds present, Soft to palpation, non-tender and no masses PALPATION: Yes Soft to palpation Extremity: COMMON NORMALS: normal to inspection and full ROM Neuro: COMMON NORMALS: patient oriented x3, moves all extremities and no focal motor deficits Psych: COMMON NORMALS: mental status grossly normal, Normal thought process present and cooperative THOUGHT PROCESS: Normal thought process present Skin: COMMON NORMALS: no rashes or lesions noted and no wounds GENERAL SKIN EXAM: no rashes or lesions noted Course 2 Vital Signs: Vital signs: Vital Signs Temperature 97.4 F L 08/05/23 18:13 Pulse Rate 85 08/05/23 19:02 Respiratory Rate 18 08/05/23 18:59 Blood Pressure 176/96 08/05/23 18:13 Pulse Oximetry 95 08/05/23 18:59 Oxygen Delivery Me thod Room Air 08/05/23 18:59 MDM - Allergic Reaction Medical Decision Making Patient presents here with allergic reaction after eating an egg he is well- appearing here feels much improved after treatment we will prescribe an EpiPen for home he is in no distress follow-up with PCP and return if worsening. Medical Records I reviewed the patient's medical records. Lab Data I reviewed the patient's lab results. 08/05/23 18:36 08/05/23 18:36 Laboratory Results WBC 10.96 10^3/uL (3.29-11.43) 08/05/23 18:36 RBC 4.94 10^6/uL (3.85-5.65) 08/05/23 18:36 Hgb 16.30 g/dL (11.27-16.99) 08/05/23 18:36 Hct 48.7 % (37-53) 08/05/23 18:36 MCV 98.6 fl (82-101) 08/05/23 18:36 MCH 33.0 pg (27-33) 08/05/23 18:36 MCHC 33.5 g/dL (30-55) 08/05/23 18:36 RDW 12.2 % (12.1-15.1) 08/05/23 18:36 Plt Count 221 10^3/cmm (157-399) 08/05/23 18:36 MPV 9.7 fL (7.4-10.4) 08/05/23 18:36 Neut % (Auto) 67.6 % 08/05/23 18:36 Lymph % (Auto) 21.2 % 08/05/23 18:36 [place] % (Auto) 8.3 % 08/05/23 18:36 Eos % (Auto) 2.1 % 08/05/23 18:36 Baso % (Auto) 0.4 % 08/05/23 18:36 Neut # (Auto) 7.42 10^3/uL (1.8-7.7) 08/05/23 18:36 Lymph # (Auto) 2.3 10^3/uL (0.8-4.8) 08/05/23 18:36 [place] # (Auto) 0.9 10^3/uL (0.2-0.9) 08/05/23 18:36 Eos # (Auto) 0.2 10^3/uL (0.0-0.8) 08/05/23 18:36 Baso # (Auto) 0.0 10^3/uL (0.0-0.1) 08/05/23 18:36 Nucleated RBC % (auto) 0 % 08/05/23 18:36 Nucleated RBCs # 0.0 /100WBC 08/05/23 18:36 Sodium 139 mmol/L (136-145) 08/05/23 18:36 Potassium 4.1 mmol/L (3.5-5.1) 08/05/23 18:36 Chloride 105 mmol/L (98-107) 08/05/23 18:36 Carbon Dioxide 24 mmol/L (22-29) 08/05/23 18:36 Anion Gap 14.1 (5-19) 08/05/23 18:36 BUN 16 mg/dL (6-20) 08/05/23 18:36 Creatinine 0.9 mg/dL (0.7-1.2) 08/05/23 18:36 GFR Calculation 87.6 mL/min (90-130) L 08/05/23 18:36 Glucose 96 mg/dL (65-115) 08/05/23 18:36 Calculated Osmolality 289 mOsm/kg (285-295) 08/05/23 18:36 Calcium 9.5 mg/dL (8.5-10.5) 08/05/23 18:36 Total Bilirubin 0.5 mg/dL (0.15-1.2) 08/05/23 18:36 AST 26 U/L (0-40) 08/05/23 18:36 ALT 27 U/L (0-41) 08/05/23 18:36 Alkaline Phosphatase 71 U/L (40-130) 08/05/23 18:36 Total Protein 7.2 g/dL (6.6-8.7) 08/05/23 18:36 Albumin 4.2 g/dL (3.5-5.2) 08/05/23 18:36 Globulin 3.0 g/dL (1.3-4.6) 08/05/23 18:36 Lipase 31 U/L (13-60) 08/05/23 18:36 All radiology interpretation(s) finalized by discharge Discharge Plan Discharge Patient Disposition: Home Clinical Impression: Allergic reaction Condition: Stable Prescriptions: New EpiPen 2-Remigio 0.3 mg/0.3 mL auto-injector 0.3 mg IM Q20M PRN (Reason: anaphylaxis) Qty: 2 0RF Rx Instructions: not to exceed 6 doses per episode No Action amlodipine 10 mg tablet 10 mg PO DAILY Qty: 90 3RF warfarin 5 mg tablet 5 mg PO DAILY Qty: 90 3RF Protocol: Dose Management Condition: Sunday Dose/Route: 5 mg Instruction: 1 x 5 mg tablet Condition: Sunday Dose/Route: 2.5 mg Instruction: 0.5 x 5 mg tablets Condition: Sunday Dose/Route: 5 mg Instruction: 1 x 5 mg tablet Condition: Sunday Dose/Route: 5 mg Instruction: 1 x 5 mg tablet Condition: Dose/Route: 5 mg Instruction: 1 x 5 mg tablet Condition: Sunday Dose/Route: 5 mg Instruction: 1 x 5 mg tablet Condition: Sunday Dose/Route: 2.5 mg Instruction: 0.5 x 5 mg tablets Protocol Text: Adjustment Start Date: Sunday07/11/23 INR Value: 37.9 Seconds INR Date: 07/11/23 Recheck Date: 08/08/23 Rx Instructions: 5mg on Sun and Sun warfarin 6 mg tablet 6 mg PO DAILY Qty: 90 3RF Protocol: Dose Management Condition: Sunday Dose/Route: 5 mg Instruction: 1 x 5 mg tablet Condition: Sunday Dose/Route: 2.5 mg Instruction: 0.5 x 5 mg tablets Condition: Sunday Dose/Route: 5 mg Instruction: 1 x 5 mg tablet Condition: Sunday Dose/Route: 5 mg Instruction: 1 x 5 mg tablet Condition: Dose/Route: 5 mg Instruction: 1 x 5 mg tablet Condition: Sunday Dose/Route: 5 mg Instruction: 1 x 5 mg tablet Condition: Sunday Dose/Route: 2.5 mg Instruction: 0.5 x 5 mg tablets Protocol Text: Adjustment Start Date: Sunday07/11/23 INR Value: 37.9 Seconds INR Date: 07/11/23 Recheck Date: 08/08/23 Rx Instructions: take 6mg on Sun and Sun polyethylene glycol 3350 [Miralax] 17 gram/dose powder 17 g PO DAILY Qty: 238 0RF losartan 100 mg tablet 100 mg PO DAILY Qty: 60 0RF levothyroxine [Synthroid] 200 mcg tablet 200 mcg PO DAILY Qty: 90 0RF omeprazole 40 mg capsule,delayed release(DR/EC) 40 mg PO DAILY Qty: 90 0RF docusate sodium [Stool Softener] 100 mg Capsule 100 mg PO DAILY diclofenac sodium [Voltaren Arthritis Pain] 1 % gel 4 g topical QID PRN (Reason: Pain) Rx Instructions: apply to single knee, ankle, foot; for foot includes sole/toes/top of foot Discharge Orders: Discharge ED (Routine); Ordered 08/05/23 Ordered By: Asa Stuart Referrals: Anders Wynne MD [Primary Care Provider] - 1-3 days Discharge Diet: Advance as tolerated Discharge Activity: Resume usual activity Patient Instructions: Allergic Reaction Coding Level of Care Code ED Snow Maker for [facility]
[2023-08-05] MEDS: ondansetron 2 mg/ML SDV 2 mL 4 MG IVP (18:25)
[2023-08-05] MEDS: famotidine 20 mg/2 mL INJ IVP (18:25)
[2023-08-05] MEDS: diphenhydrAMINE 50 mg/mL SDV 1mL IVP (18:26)
[2023-08-05] MEDS: methylPREDNISolone sod succ 125 mg/2 mL INJ IVP (18:27)
--- NOTE | 2023-08-05 18:33 | ECG_ITS ---
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 Measurements Intervals [place] Rate: 66 P: 116 VT: 174 QRS: 194 QRSD: 88 T: 132 QT: 377 QTc: 396 Interpretive Statements SINUS RHYTHM ARM LEADS REVERSED [INVERTED P AND QRS IN I] Compared to ECG 04/10/2020 22:36:48 Myocardial infarct finding no longer present Electronically Signed On 08-06-2023 10:51:33 CUSHION COVER INSPECTOR by Jos Jackson M.D. [id number]
[2023-08-05 18:45] LABS: Basophils % 0.4 %; Eosinophils # 0.2 10^3/uL (0.0-0.8); Eosinophils % 2.1 %; Hematocrit 48.7 % (37-53); Lymphocytes # 2.3 10^3/uL (0.8-4.8); Lymphocytes % 21.2 %; Mean Corpuscular HGB Conc 33.5 g/dL (30-55); Mean Corpuscular Volume 98.6 fl (82-101); Mean Platelet Volume 9.7 fL (7.4-10.4); Monocytes # 0.9 10^3/uL (0.2-0.9); Monocytes % 8.3 %; Neutrophils # 7.42 10^3/uL (1.8-7.7); Neutrophils % 67.6 %; Nucleated Red Blood Cells % 0 %; Platelet Count 221 10^3/cmm (157-399); Red Blood Count 4.94 10^6/uL (3.85-5.65); Red Cell Distribution Width 12.2 % (12.1-15.1); White Blood Count 10.96 10^3/uL (3.29-11.43)
[2023-08-05] MEDS: racepinephrine 0.5 mL Neb INHALATION (18:57)
[2023-08-05 18:59] VITALS: PULSE 78; RESP 18; O2SAT 95
[2023-08-05 19:02] VITALS: PULSE 85
[2023-08-05 19:06] LABS: Alanine Aminotransferase 27 U/L (0-41); Albumin Level 4.2 g/dL (3.5-5.2); Alkaline Phosphatase 71 U/L (40-130); Anion Gap 14.1 (5-19); Aspartate Amino Transferase 26 U/L (0-40); Blood Urea Nitrogen 16 mg/dL (6-20); Calcium 9.5 mg/dL (8.5-10.5); Carbon Dioxide 24 mmol/L (22-29); Chloride 105 mmol/L (98-107); Glomerular Filtration Rate 87.6 mL/min (90-130); Glucose 96 mg/dL (65-115); Lipase 31 U/L (13-60); Osmolality Calculated 289 mOsm/kg (285-295); Potassium 4.1 mmol/L (3.5-5.1); Sodium 139 mmol/L (136-145); Total Bilirubin 0.5 mg/dL (0.15-1.2); Total Protein 7.2 g/dL (6.6-8.7)
== END 2023-08-05 19:41 | disposition home or self-care (01) ==
PROVIDERS: Emergency Provider Emergency Medicine; PCP Family Medicine
DX: T78.1XXA Other adverse food reactions, not elsewhere classified, initial encounter (principal); Z86.73 Personal history of transient ischemic attack (TIA), and cerebral infarction without residual deficits; I10 Essential (primary) hypertension; F17.210 Nicotine dependence, cigarettes, uncomplicated; Z79.01 Long term (current) use of anticoagulants; X58.XXXA Exposure to other specified factors, initial encounter
CPT/HCPCS: 36415; 71045; 80053; 83690; 85025; 93005; 94640; 96374; 96375; 99285; J1200; J2405; J2930; J3490

== ENCOUNTER → 2023-08-08 09:23 | Outpatient (BNVA) | payer OTHER, SELFPAY | PROVIDERS: PCP Family Medicine; Visit Provider Internal Medicine Cardiovascular Disease | DX: Z95.2 Presence of prosthetic heart valve (principal) | CPT/HCPCS: 85610 ==

== ENCOUNTER → 2023-09-12 15:48 | Outpatient (BNVA) | payer OTHER, SELFPAY | PROVIDERS: PCP Family Medicine; Visit Provider Internal Medicine Cardiovascular Disease | DX: Z95.2 Presence of prosthetic heart valve (principal) | CPT/HCPCS: 85610 ==

== ENCOUNTER → 2023-09-26 16:02 | Outpatient (BNVA) | payer OTHER, SELFPAY | PROVIDERS: PCP Family Medicine; Visit Provider Internal Medicine | DX: Z95.2 Presence of prosthetic heart valve (principal) | CPT/HCPCS: 85610 ==

== ENCOUNTER → 2023-10-10 15:59 | Outpatient (BNVA) | payer OTHER, SELFPAY | PROVIDERS: PCP Family Medicine; Visit Provider Internal Medicine | DX: Z95.2 Presence of prosthetic heart valve (principal) | CPT/HCPCS: 85610 ==

== ENCOUNTER → 2023-10-24 15:28 | Outpatient (BNVA) | payer OTHER, SELFPAY | PROVIDERS: PCP Family Medicine; Visit Provider Internal Medicine | DX: Z95.2 Presence of prosthetic heart valve (principal) | CPT/HCPCS: 85610 ==

== ENCOUNTER → 2023-11-07 16:00 | Outpatient (BNVA) | payer OTHER, SELFPAY | PROVIDERS: PCP Family Medicine; Visit Provider Internal Medicine | DX: Z95.2 Presence of prosthetic heart valve (principal) | CPT/HCPCS: 85610 ==

== ENCOUNTER → 2023-11-21 16:04 | Outpatient (BNVA) | payer OTHER, SELFPAY | PROVIDERS: PCP Family Medicine; Visit Provider Internal Medicine | DX: Z95.2 Presence of prosthetic heart valve (principal) | CPT/HCPCS: 85610 ==

== ENCOUNTER → 2024-03-26 10:16 | Outpatient (BNVA) | payer OTHER, SELFPAY | PROVIDERS: PCP Family Medicine; Visit Provider Internal Medicine | DX: Z95.2 Presence of prosthetic heart valve (principal) | CPT/HCPCS: 85610 ==

== ENCOUNTER → 2024-04-03 08:14 | Outpatient (BNVA) | payer OTHER, SELFPAY | PROVIDERS: PCP Family Medicine; Visit Provider Family Medicine | DX: E03.9 Hypothyroidism, unspecified (principal) | CPT/HCPCS: 80053; 84439; 84443 ==

== ENCOUNTER → 2024-05-26 13:04 | Outpatient (BNVA) | payer OTHER, SELFPAY | PROVIDERS: PCP Family Medicine; Visit Provider Internal Medicine | DX: Z95.2 Presence of prosthetic heart valve (principal) | CPT/HCPCS: 85610 ==

== ENCOUNTER 2024-06-09 11:30 | Outpatient (CLI) | payer OTHER, SELFPAY ==
--- NOTE | 2024-06-09 12:00 | CT_ITS ---
WS: [id number] LDCT LUNG CANCER SCREENING HISTORY: lung cancer screening TECHNIQUE: Axial imaging performed from the apices to 1 cm below the costophrenic angles. Coronal and sagittal reformats are submitted with axial MIP series. All CT scans at [facility] use at least one of these dose optimization techniques: automated exposure control; mA and/or kV adjustment per patient size (includes targeted exams where dose is matched to clinical indication); or iterativ e reconstruction. DLP: 68.29 mGy.cm DIvol: Mean CTDIvol: 1.40 (mGy) COMPARISON: 12/08/2022, 08/28/2021 Diagnostic quality: Satisfactory Lungs: Stable 6 mm subpleural nodule LEFT upper lobe. Stable 4 mm LEFT perifissural nodule. No pulmon maricarmen mass or new nodule. Focal thin linear scar in the lingula. No endobronchial lesions. Heart: Normal size. Mitral valve replacement. Prior median sternotomy.. Mild pericardial thickening a nteriorly may be related to the prior surgery. Other findings: Minimal atherosclerosis aorta. No adenopathy. Small hiatal hernia. CT/CT lung screening [id number] IMPRESSION: LUNG-RADS: 2-Benign Appearance or Behavior FOLLOW UP: 12 Month: Continue annual screening with LDCT OTHER FINDINGS (S MODIFIER): None.
== END 2024-06-09 11:31 | disposition home or self-care (01) ==
LOC: RAD 11:30
PROVIDERS: PCP Family Medicine; Visit Provider Family Medicine
DX: F17.219 Nicotine dependence, cigarettes, with unspecified nicotine-induced disorders (principal); Z12.2 Encounter for screening for malignant neoplasm of respiratory organs; R91.8 Other nonspecific abnormal finding of lung field; K44.9 Diaphragmatic hernia without obstruction or gangrene
CPT/HCPCS: 71271; 85610

== ENCOUNTER → 2024-09-01 12:49 | Outpatient (BNVA) | payer OTHER, SELFPAY | PROVIDERS: PCP Family Medicine; Visit Provider Internal Medicine | DX: Z95.2 Presence of prosthetic heart valve (principal) | CPT/HCPCS: 85610 ==

== ENCOUNTER → 2024-09-29 13:01 | Outpatient (BNVA) | payer OTHER, SELFPAY | PROVIDERS: PCP Family Medicine; Visit Provider Internal Medicine | DX: Z95.2 Presence of prosthetic heart valve (principal) | CPT/HCPCS: 85610 ==

== ENCOUNTER → 2024-10-06 13:05 | Outpatient (BNVA) | payer OTHER, SELFPAY | PROVIDERS: PCP Family Medicine; Visit Provider Internal Medicine | DX: Z95.2 Presence of prosthetic heart valve (principal) | CPT/HCPCS: 85610 ==

== ENCOUNTER → 2024-11-03 12:15 | Outpatient (BNVA) | payer OTHER, SELFPAY | PROVIDERS: PCP Family Medicine; Visit Provider Internal Medicine | DX: Z95.2 Presence of prosthetic heart valve (principal) | CPT/HCPCS: 85610 ==

== ENCOUNTER → 2024-11-10 08:55 | Outpatient (BNVA) | payer OTHER, SELFPAY | PROVIDERS: PCP Family Medicine; Visit Provider Internal Medicine | DX: Z95.2 Presence of prosthetic heart valve (principal) | CPT/HCPCS: 85610 ==

== ENCOUNTER 2024-12-10 18:32 | Emergency (ER) | payer OTHER, SELFPAY ==
[2024-12-10 18:44] VITALS: BP 150/83; PULSE 85; RESP 18; TEMP 36.9; O2SAT 96; BMI 30.7
--- NOTE | 2024-12-10 18:52 | PC.NURSE ---
pt has hx of very high inr. concerned this is possibly causing ams
--- NOTE | 2024-12-10 19:17 | CTR_ITS ---
PROCEDURE INFORMATION: Exam: CT Head Without Contrast Exam date and time: 12/10/2024 7:35 PM Age: 54 years old Clinical indication: Stroke-like symptoms; Speech disturbance; Additional info: Encephalopathy, altered mental status TECHNIQUE: Imaging protocol: Computed tomography of the head without contrast. Radiation optimization: All CT scans at this facility use at least one of these dose optimization techniques: automated exposure control; mA and/or kV adjustment per patient size (includes targeted exams where dose is matched to clinical indication); or iterative reconstruction. Other technique: STROKE PROTOCOL was implemented. COMPARISON: CT angio headneck* [id number] 04/10/2020 8:33 PM RADIATION DOSE METRICS: Total DLP (mGy-cm): 1097 FINDINGS: Brain: Chronic left frontal lobe infarct with encephalomalacia. Cerebral ventricles: No ventriculomegaly. Paranasal sinuses: Visualized sinuses are unremarkable. No fluid levels. Mastoid air cells: Visualized mastoid air cells are well aerated. Bones: Unremarkable. No acute fracture. Soft tissues: Unremarkable. CT/CT head wo con* [id number] IMPRESSION: 1. Chronic left frontal lobe infarct with encephalomalacia. 2. No acute findings. ASSESSMENT: ASPECTS ([facility]ia Stroke Program Early CT Score) is 10.
--- NOTE | 2024-12-10 19:18 | ECG_ITS ---
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
--- NOTE | 2024-12-10 19:18 | XRR_ITS ---
PROCEDURE INFORMATION: Exam: XR Chest Exam date and time: 12/10/2024 7:39 PM Age: 54 years old Clinical indication: Other: Weakness; Prior surgery; Surgery date: 6+ months; Surgery type: Aortic valve TECHNIQUE: Imaging protocol: Radiologic exam of the chest. Views: 1 view. COMPARISON: CT lung screening [id number] 06/09/2024 11:32 AM FINDINGS: Lungs: Left basilar discoid atelectasis and/or scarring. Pleural spaces: Unremarkable. No pleural effusion. No pneumothorax. Heart/Mediastinum: Stable aortic valve replacement. Bones/joints: Stable sternotomy. Other findings: Patient rotation to the left. XR/XR chest 1V portable [id number] IMPRESSION: 1. Stable aortic valve replacement. 2. Left basilar discoid atelectasis and/or scarring.
[2024-12-10 19:31] VITALS: BP 163/88; PULSE 8; RESP 14; O2SAT 98
[2024-12-10 19:37] LABS: Basophils # 0.1 10^3/uL (0.0-0.1); Eosinophils # 0.3 10^3/uL (0.0-0.8); Eosinophils % 3.9 %; Hematocrit 43.2 % (37-53); Lymphocytes # 2.5 10^3/uL (0.8-4.8); Mean Corpuscular Hemoglobin 31.5 pg (27-33); Mean Corpuscular Volume 92.5 fl (82-101); Mean Platelet Volume 9.7 fL (7.4-10.4); Monocytes # 1.2 10^3/uL (0.2-0.9); Monocytes % 14.6 %; Neutrophils # 3.89 10^3/uL (1.8-7.7); Neutrophils % 49.2 %; Nucleated Red Blood Cells % 0 %; Platelet Count 245 10^3/cmm (157-399); Red Blood Count 4.67 10^6/uL (3.85-5.65); Red Cell Distribution Width 12.3 % (12.1-15.1)
--- NOTE | 2024-12-10 19:46 | W.ED.AMS ---
HPI - Altered Mental Status General: Chief Complaint: Altered Mental Status Stated Complaint: says pt is very confused prior stroke Time Seen by Provider: 12/10/24 19:13 History of Present Illness: 54-year-old man with a history of stroke, hypertension, chronic anticoagulation on Coumadin, diverticulosis, GERD, hypothyroidism and hypertension who presents to the emergency room after having had an episode of confusion earlier today. He is now back to baseline. reports 2 strokes in the past. Currently no focal motor deficits. No altered mental status. Related Data Home Medications ?Medication ?Instructions ?Recorded ?Confirmed docusate sodium 100 mg capsule 100 mg PO DAILY 04/11/20 04/03/24 (Stool Softener) diclofenac sodium 1 % topical gel 4 g topical QID PRN Pain 05/22/22 04/03/24 (Voltaren Arthritis Pain) Previous Rx's ?Medication ?Instructions ?Recorded polyethylene glycol 3350 17 17 g PO DAILY #238 grams 06/05/22 gram/dose oral powder (Miralax) warfarin 6 mg tablet 6 mg PO DAILY #90 tabs 05/25/23 epinephrine 0.3 mg/0.3 mL 0.3 mg (0.3 mL) IM Q20M PRN 08/05/23 injection, auto-injector (EpiPen anaphylaxis #2 ea 2-Remigio) warfarin 4 mg tablet 4 mg PO DAILY #90 tabs 03/26/24 amlodipine 10 mg tablet 10 mg PO DAILY #90 tabs 04/03/24 levothyroxine 200 mcg tablet 200 mcg PO DAILY #90 tabs 04/12/24 (Synthroid) losartan 100 mg tablet 100 mg PO DAILY #90 tabs 04/12/24 omeprazole 40 mg capsule,delayed 40 mg PO DAILY #90 caps 04/12/24 release warfarin 5 mg tablet 5 mg PO DAILY #90 tabs 10/27/24 Allergies Allergy/AdvReac Type Severity Reaction Status Date / Time egg Allergy Unknown Verified 04/03/24 07:55 Review of Systems Narrative: Constitutional symptoms: Negative except as documented in HPI. Skin symptoms: Negative except as documented in HPI. Eye symptoms: Negative except as documented in HPI. ENMT symptoms: Negative except as documented in HPI. Respiratory symptoms: Negative except as documented in HPI. Cardiovascular symptoms: Negative except as documented in HPI. Gastrointestinal symptoms: Negative except as documented in HPI. Genitourinary symptoms: Negative except as documented in HPI. Musculoskeletal symptoms: Negative except as documented in HPI. Neurologic symptoms: Negative except as documented in HPI. Psychiatric symptoms: Negative except as documented in HPI. Endocrine symptoms: Negative except as documented in HPI. PFS ED PFSH: Medical History (Updated 12/10/24 @ 20:29 by Zofia Hamilton MD) Neck pain Tobacco use disorder, moderate, dependence CVA (cerebral vascular accident) Chronic anticoagulation -On Coumadin Diverticulosis GERD (gastroesophageal reflux disease) Hypothyroidism Hypertension Surgical History Aortic valve replaced H/O hemorrhoidectomy Hx of tracheostomy H/O wrist surgery -right Mitral valve replaced -mechanical valve Family History Other Hypertension Stroke Denies family history of Diabetes CAD (coronary artery disease) Clotting disorder Dementia Hyperlipidemia Chronic kidney disease (CKD) Anesthesia complication Bleeding disorder Lung disease Cancer Social History Smoking and tobacco/nicotine status: current every day tobacco/nicotine user cigarettes Packs smoked per day: 1 Alcohol intake: never Substance/Drug Use: never Household members: family Marital status: Current occupational status: employed 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 Skin: Warm, dry. Head: Normocephalic, atraumatic. Neck: Supple, trachea midline. Eye: Extraocular movements are intact. Ears, nose, mouth and throat: mucosa moist. Cardiovascular: Regular, Normal peripheral perfusion. Respiratory: Lungs are clear to auscultation, respirations are non-labored, breath sounds are equal, Symmetrical chest wall expansion. Gastrointestinal: Soft, Nontender, Non distended Musculoskeletal: Normal ROM, no deformity. Neurological: Alert and oriented, No focal neurological deficit observed. Psychiatric: Cooperative, appropriate mood & affect. Course Vital Signs: Vital signs: Vital Signs Temperature 98.4 F 12/10/24 18:44 Pulse Rate 8 L 12/10/24 19:31 Respiratory Rate 14 12/10/24 19:31 Blood Pressure 163/88 12/10/24 19:31 Pulse Oximetry 98 12/10/24 19:31 Oxygen Delivery Me thod Room Air 12/10/24 19:31 MDM - Altered Mental Status Medical Decision Making Medical decision making: Differential diagnosis including but not limited to and based on the above HPI, review of systems and physical exam: In this patient with altered mental status: Stroke. Hypoglycemia. Metabolic encephalopathy. Infections such as pneumonia, urinary tract infection, Covid-19, Influenza. Electrolyte abnormalities such as hypernatremia. Renal failure / uremia. Hepatic encephalopathy. Hypoxemia. Hypercapnic respiratory failure. Psychosis. Drug or alcohol intoxication. Medication overdose. Orders placed to evaluate differential diagnosis based on the above differential, HPI and physical exam EKG: Time 1922. Rate 73. Normal sinus rhythm, No ST-T changes, no ectopy, normal AK & QRS intervals, This was reviewed and interpreted by myself the ER physician at 1926 Chest x-ray: No acute process. Stable aortic valve replacement. Some left basilar atelectasis and/or scarring. No infiltrate. No pneumothorax. This was reviewed and interpreted by myself the emergency room physician. I also reviewed the radiology report. CT head: Chronic left frontal lobe infarct with encephalomalacia. No acute intracranial process. no intracranial hemorrhage, no evidence of infarct. no evidence of acute fracture.This was reviewed and interpreted by myself the ER physician. Lab Review: Laboratory results were reviewed and interpreted by myself the emergency room physician. No leukocytosis. No anemia. No renal failure. Urinalysis is negative for infection. Lactic acid is negative. INR is slightly below therapeutic at 1.76. I reviewed the patient's medical record. Reexamination: Patient remained stable. No increased work of breathing. No altered mental status. No focal motor deficits. Patient has had no confusion while he is been here. Assessment and plan: Altered mental status History of stroke Chronic anticoagulation on Coumadin - Discharged home - Discussed plan with patient. Answered any questions. - Evaluation and treatment of this problem were appropriate in the emergency setting. Lab Data 12/10/24 14:26 12/10/24 14:[address] 12/10/24 19:17 IMPRESSION: 1. Chronic left frontal lobe infarct with encephalomalacia. 2. No acute findings. ASSESSMENT: ASPECTS ([place] Stroke Program Early CT Score) is 10. ADDENDUM: 12/10/241948 THIS REPORT CONTAINS FINDINGS THAT MAY BE CRITICAL TO PATIENT CARE. The findings were verbally communicated via telephone conference with HAMILTON, ZOFIA at 7:47 PM CDT on 12/10/2024. The findings were acknowledged and understood. Chest X-Ray 12/10/24 19:18 IMPRESSION: 1. Stable aortic valve replacement. 2. Left basilar discoid atelectasis and/or scarring. Laboratory Results WBC 7.90 10^3/uL (3.29-11.43) 12/10/24 14: RBC 4.67 10^6/uL (3.85-5.65) 12/10/24 14: Hgb 14.70 g/dL (11.27-16.99) 12/10/24 14: Hct 43.2 % (37-53) 12/10/24 14: MCV 92.5 fl (82-101) 12/10/24 14: MCH 31.5 pg (27-33) 12/10/24 14: MCHC 34.0 g/dL (30-55) 12/10/24 14: RDW 12.3 % (12.1-15.1) 12/10/24 14: Plt Count 245 10^3/cmm (157-399) 12/10/24 14: MPV 9.7 fL (7.4-10.4) 12/10/24 14: Neut % (Auto) 49.2 % 12/10/24 14: Lymph % (Auto) 31.0 % 12/10/24 14: Oliver % (Auto) 14.6 % 12/10/24 14: Eos % (Auto) 3.9 % 12/10/24: Baso % (Auto) 1.0 % 12/10/24: Neut # (Auto) 3.89 10^3/uL (1.8-7.7) 12/10/24 14: Lymph # (Auto) 2.5 10^3/uL (0.8-4.8) 12/10/24: Oliver # (Auto) 1.2 10^3/uL (0.2-0.9) H 12/10/24 14: Eos # (Auto) 0.3 10^3/uL (0.0-0.8) 12/10/24: Baso # (Auto) 0.1 10^3/uL (0.0-0.1) 12/10/24 14: Nucleated RBC % (auto) 0 % 12/10/24 14: Nucleated RBCs # 0.0 /100WBC 12/10/24 14: PT 21.60 SECONDS (12.1-14.9) H 12/10/24 14: INR 1.76 (0.8-1.2) H 12/10/24 14: APTT 39.1 SECONDS (23.9-36.7) H 12/10/24 14:26 Sodium 137 mmol/L (136-145) 12/10/24 14: Potassium 4.0 mmol/L (3.5-5.1) 12/10/24 14: Chloride 101 mmol/L (98-107) 12/10/24 14: Carbon Dioxide 23 mmol/L (22-29) 12/10/24 14: Anion Gap 17.0 (5-19) 12/10/24 14: BUN 12 mg/dL (6-20) 12/10/24 14: Creatinine 0.9 mg/dL (0.7-1.2) 12/10/24 14: GFR Calculation 87.3 mL/min (90-130) L 12/10/24 14: Glucose 88 mg/dL (65-115) 12/10/24 14: Calculated Osmolality 283 mOsm/kg (285-295) L 12/10/24 14: Lactic Acid 0.7 mmol/L (0.5-2.2) 12/10/24 14: Calcium 9.6 mg/dL (8.5-10.5) 12/10/24 14: Total Bilirubin 0.9 mg/dL (0.15-1.2) 12/10/24 14: AST 23 U/L (0-40) 12/10/24 14: ALT 16 U/L (0-41) 12/10/24 14: Alkaline Phosphatase 70 U/L (40-130) 12/10/24 14: Troponin T Baseline < 6 ng/L (0-15) 12/10/24 14: C-Reactive Protein 4.7 mg/L (0.0-4.9) 12/10/24 14: Total Protein 7.4 g/dL (6.6-8.7) 12/10/24 14:26 Albumin 4.4 g/dL (3.5-5.2) 12/10/24 14:26 Globulin 3.0 g/dL (1.3-4.6) 12/10/24 14:26 All radiology interpretation(s) finalized by discharge Discharge Plan Discharge Patient Disposition: Home Clinical Impression: Altered mental status, History of stroke, Chronic anticoagulation Condition: Stable Prescriptions: No Action warfarin 6 mg tablet 6 mg PO DAILY Qty: 90 3RF Protocol: Dose Management Condition: Sunday Dose/Route: 4 mg Instruction: 1 x 4 mg tablet Condition: Sunday Dose/Route: 4 mg Instruction: 1 x 4 mg tablet Condition: Sunday Dose/Route: 4 mg Instruction: 1 x 4 mg tablet Condition: Sunday Dose/Route: 4 mg Instruction: 1 x 4 mg tablet Condition: Dose/Route: 4 mg Instruction: 1 x 4 mg tablet Condition: Sunday Dose/Route: 4 mg Instruction: 1 x 4 mg tablet Condition: Sunday Dose/Route: 4 mg Instruction: 1 x 4 mg tablet Protocol Text: Adjustment Start Date: Sunday11/10/24 INR Value: 31.2 Seconds INR Date: 11/10/24 Recheck Date: 12/08/24 Rx Instructions: take 6mg on Sun Sat and Sun amlodipine 10 mg tablet 10 mg PO DAILY Qty: 90 3RF polyethylene glycol 3350 [Miralax] 17 gram/dose powder 17 g PO DAILY Qty: 238 0RF warfarin 4 mg tablet 4 mg PO DAILY Qty: 90 3RF Protocol: Dose Management Condition: Sunday Dose/Route: 4 mg Instruction: 1 x 4 mg tablet Condition: Sunday Dose/Route: 4 mg Instruction: 1 x 4 mg tablet Condition: Sunday Dose/Route: 4 mg Instruction: 1 x 4 mg tablet Condition: Sunday Dose/Route: 4 mg Instruction: 1 x 4 mg tablet Condition: Dose/Route: 4 mg Instruction: 1 x 4 mg tablet Condition: Sunday Dose/Route: 4 mg Instruction: 1 x 4 mg tablet Condition: Sunday Dose/Route: 4 mg Instruction: 1 x 4 mg tablet Protocol Text: Adjustment Start Date: Sunday11/10/24 INR Value: 31.2 Seconds INR Date: 11/10/24 Recheck Date: 12/08/24 Rx Instructions: take 1 tab daily omeprazole 40 mg capsule,delayed release(DR/EC) 40 mg PO DAILY Qty: 90 1RF losartan 100 mg tablet 100 mg PO DAILY Qty: 90 1RF levothyroxine [Synthroid] 200 mcg tablet 200 mcg PO DAILY Qty: 90 1RF warfarin 5 mg tablet 5 mg PO DAILY Qty: 90 3RF Protocol: Dose Management Condition: Sunday Dose/Route: 4 mg Instruction: 1 x 4 mg tablet Condition: Sunday Dose/Route: 4 mg Instruction: 1 x 4 mg tablet Condition: Sunday Dose/Route: 4 mg Instruction: 1 x 4 mg tablet Condition: Sunday Dose/Route: 4 mg Instruction: 1 x 4 mg tablet Condition: Dose/Route: 4 mg Instruction: 1 x 4 mg tablet Condition: Sunday Dose/Route: 4 mg Instruction: 1 x 4 mg tablet Condition: Sunday Dose/Route: 4 mg Instruction: 1 x 4 mg tablet Protocol Text: Adjustment Start Date: Sunday11/10/24 INR Value: 31.2 Seconds INR Date: 11/10/24 Recheck Date: 12/08/24 Rx Instructions: 5mg on Sun and Sun docusate sodium [Stool Softener] 100 mg Capsule 100 mg PO DAILY diclofenac sodium [Voltaren Arthritis Pain] 1 % gel 4 g topical QID PRN (Reason: Pain) Rx Instructions: apply to single knee, ankle, foot; for foot includes sole/toes/top of foot EpiPen 2-Remigio 0.3 mg/0.3 mL auto-injector 0.3 mg IM Q20M PRN (Reason: anaphylaxis) Qty: 2 0RF Rx Instructions: not to exceed 6 doses per episode Discharge Orders: Discharge ED (Routine); Ordered 12/10/24 Ordered By: Zofia Hamilton Referrals: Anders Wynne MD [Primary Care Provider, Family Practice] Patient Instructions: Altered Mental Status (ED), Opioid Safety, Pain Management Activity Restrictions/Additional Instructions: Thank you for choosing [facility] for your healthcare needs today. You have been screened and evaluated and felt safe for discharge. Health conditions do change or evolve sometimes and as such it is important that you follow up with your Primary Doctor to be re checked, 3-5 days is a general good time frame for follow up. You are always welcome to return to the ED for re assessment if your symptoms are worsening or you have new concerns Print Language: Welsh Coding Level of Care Code ED Retrieval Specialist for Hai Tucker
[2024-12-10 19:52] LABS: INR 1.76 (0.8-1.2)
[2024-12-10 19:53] LABS: Partial Thromboplastin Time 39.1 SECONDS (23.9-36.7)
[2024-12-10 19:56] LABS: Lactic Sepsis W/Reflex 0.7 mmol/L (0.5-2.2)
[2024-12-10 19:58] LABS: Troponin(5th) Baseline < 6 ng/L (0-15)
[2024-12-10 20:10] LABS: Alanine Aminotransferase 16 U/L (0-41); Albumin Level 4.4 g/dL (3.5-5.2); Alkaline Phosphatase 70 U/L (40-130); Aspartate Amino Transferase 23 U/L (0-40); Blood Urea Nitrogen 12 mg/dL (6-20); C Reactive Protein 4.7 mg/L (0.0-4.9); Calcium 9.6 mg/dL (8.5-10.5); Carbon Dioxide 23 mmol/L (22-29); Chloride 101 mmol/L (98-107); Creatinine Clr Calc Pharmacy 110.3096; Glomerular Filtration Rate 87.3 mL/min (90-130); Glucose 88 mg/dL (65-115); Osmolality Calculated 283 mOsm/kg (285-295); Sodium 137 mmol/L (136-145); Total Bilirubin 0.9 mg/dL (0.15-1.2); Total Protein 7.4 g/dL (6.6-8.7)
[2024-12-10 20:54] VITALS: BP 147/94; PULSE 74; RESP 18; O2SAT 95
[2024-12-10 20:58] LABS: Bilirubin Urine Negative (Negative); Blood Urine Negative (Negative); Glucose Urine UA Negative (Normal); Ketones Urine Negative (Negative); Leukocyte Esterase Urine Negative (Negative); Nitrate Urine Negative (Negative); Protein Urine Negative (Negative); Specific Gravity, Urine 1.003 (1.005-1.030); Urine Appearance Clear (CLEAR); Urine Color Yellow (Yellow); Urobilinogen Urine 0.2 mg/dL (Negative)
[2024-12-10 21:00] LABS: Bacteria Urine None Seen /hpf; Hyaline Casts Urine 0-4 /lpf; RBC Urine 0-2 /hpf (0-2); Squamous Epithelial Cell Urine 0-5 /hpf (0-5); WBC Urine 0-5 /hpf (0-5)
== END 2024-12-10 20:56 | disposition home or self-care (01) ==
PROVIDERS: Emergency Provider Emergency Medicine; PCP Family Medicine
DX: R41.82 Altered mental status, unspecified (principal); Z86.73 Personal history of transient ischemic attack (TIA), and cerebral infarction without residual deficits; Z79.01 Long term (current) use of anticoagulants; F17.210 Nicotine dependence, cigarettes, uncomplicated; I10 Essential (primary) hypertension
CPT/HCPCS: 36415; 70450; 71045; 80053; 81001; 83605; 84484; 85025; 85610; 85730; 86140; 87040; 93005; 99285

== ENCOUNTER 2025-02-08 08:01 | Emergency (ER) | payer OTHER, SELFPAY ==
[2025-02-08 08:05] VITALS: BP 152/82; PULSE 73; RESP 16; TEMP 36.5; O2SAT 99; BMI 27.8
--- OUTSIDE RECORDS SUMMARY | 2025-02-08 08:08 | XMS_ITS | Encounter Summary ---
Author Organization [facility] Address [address] [place] [address] Care Team Providers Care Steam Tank Operator Name Role Phone Unavailable Primary Care Provider Unavailabl e Encounter Details Date Type Department Care Team (Late st Contact Info) Description 12/03/2005 Emergency [facility] Emergency Department 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 INR 1.1 INTERFACE SYSTEM Comment: Expected Values for INR: DVT/PE Goal INR 2.5; range 2.0 - 3.0 Valve Replacement Tissue Goal INR 2.5; range 2.0 - 3.0 Mechanical Goal INR 3.0; range 2.5 - 3.5 POST-AZ Goal INR 2.5; range 2.0 - 3.0 or Goal 3.0; range 2.5 - 3.5 Atrial Fibrillation Goal INR 2.5; range 2.0 - 3.0 Ischemic Stroke Goal INR 2.5; range 2.0 - 3.0 For additional information see Guidelines for Anticoagulation available from the pharmacy [facility] PTT 36.1(H) 21.5 - 34.4 Secs INTERFACE SYSTEM Comment: Therapeutic Range: Hi-level PE/DVT heparin protocol 90.1 -110 sec Lo-level PE/DVT heparin protocol 75.1 - 95 sec Cardiac Heparin Protocol 85.1 - 100 sec Neuro Heparin Protocol 70.1 - 85 sec As of 08/23/05 note change in APTT Normal Range. 12/03/2005 5:59 PM CDT Isidro Lemus MD HEMATOLOGY ORDERABLES Fin al Result INTERFACE SYSTEM Refer to clinic/hospital department * (ABNORMAL) CBC WITH DIFFERENTIAL (12/03/2005 5:59 PM CDT) HEM COMMENT Automated Diff Automated Diff INTERFACE SYSTEM WBC 17.3(H) 4.5 - 11.0 K/ul INTERFACE SYSTEM RBC 4.61 4.60 - 6.20 Mil/ul INTERFACE SYSTEM HEMOGLOBIN 15.2 14.0 - 18.0 g/dL INTERFACE SYSTEM HEMATOCRIT 44.1 41.0 - 53.0 % INTERFACE SYSTEM MCV 95.7 84.0 - 103.0 Fl INTERFACE SYSTEM MCH 33.0 27.0 - 34.0 pg INTERFACE SYSTEM MCHC 34.5 30.0 - 35.0 g/dL INTERFACE SYSTEM RDW 13.0 11.0 - 14.5 % INTERFACE SYSTEM PLATELETS 306 140 - 440 K/ul INTERFACE SYSTEM MPV 9.9 8.9 - 12.8 Fl INTERFACE SYSTEM NEUTROPHILS 70.1 42.2 - 75.2 % INTERFACE SYSTEM LYMPHOCYTES 14.6(L) 24.0 - 44.0 % INTERFACE SYSTEM MONOCYTES 14.1(H) 2.0 - 10.0 % INTERFA CE SYSTEM EOSINOPHILS 0.6 0.0 - 7.0 % INTERF ANDRE SYSTEM BASOPHILS 0.6 0.0 - 1.0 % INTERFAC E SYSTEM NEUTROPHIL ABSOLUTE 12.1(H) 2.0 - 8.0 K/uL INTERFACE SYSTEM LYMPHOCYTE ABSOLUTE 2.5 1.2 - 4.0 K/ul INTERFACE SYSTEM MONOCYTE ABSOLUTE 2.4(H) 0.1 - 0.6 K/ul INTERFACE SYSTEM EOSINOPHIL ABSOLUTE 0.1 0.0 - 0.7 K/ul INTERFACE SYSTEM BASOPHILS ABSOLUTE 0.1 0.0 - 0.2 K/ul INTERFACE SYSTEM 12/03/2005 5:59 PM CDT Isidro Lemus MD HEMATOLOGY ORDERABLES Fin al Result Performing Organization Address [facility] Phone Number INTERFACE SYSTEM Refer to clinic/hospital department * BASIC METABOLIC PANEL (12/03/2005 5:59 PM CDT) GLUCOSE 86 70 - 110 mg/dL INTERFACE SYSTEM BUN 10 9 - 20 mg/dL INTERFACE SYSTEM CREATININE 1.1 0.7 - 1.5 mg/dL INTERFACE SYSTEM SODIUM 138 136 - 145 mEq/L INTERFACE SYSTEM POTASSIUM 4.3 3.5 - 5.0 mEq/L INTERFACE SYSTEM CHLORIDE 102 95 - 110 mEq/L INTERFACE SYSTEM CO2 27 22 - 32 mmol/l INTERFACE SYSTEM ANION GAP 13 9 - 20 mEq/L INTERFACE SYSTEM OSMOLALITY, CALCULATED 283 275 - 295 mOsm/Kg INTERFACE SYSTEM CALCIUM 9.7 8.4 - 10.5 mg/dL INTERFACE SYSTEM 12/03/2005 5:59 PM CDT Isidro Lemus MD CHEMISTRY ORDERABLES Rain l Result Performing Organization Address [facility] de Phone Number INTERFACE SYSTEM Refer to clinic/hospital department documented in this encounter Visit Diagnoses Diagnosis Peritonsillar abscess- Primary documented in this encounter
--- OUTSIDE RECORDS SUMMARY | 2025-02-08 08:08 | XMS_ITS | Clinical Summary ---
Author Organization [employer] Address [address] 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
--- OUTSIDE RECORDS SUMMARY | 2025-02-08 08:08 | XMS_ITS | Encounter Summary ---
Author Organization [facility] Address [address] [place] [address] Care Team Providers Care Locker Plant Attendant Name Role Phone Unavailable Primary Care Provider Unavailabl e Encounter Details Date Type Department Care Team (Latest Contact Info) Description 02/03/2002 Outpatient Historical [facility] Tino Medellin MD [address] [place] [address] HYPERTENSION NOS (Primary Dx); CHRONIC AIRWAY OBSTRUCTION NEC (CMS/[facility]) Social History Tobacco Use Types Packs/Day Years Used Date Smoking Tobacco: Never Assessed Sex and Gender Information Value Date Recorded Sex Assigned at Not on file 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
--- NOTE | 2025-02-08 08:22 | W.ED.NECK ---
HPI - Neck Pain/Injury General: Chief Complaint: Neck Pain/Injury Stated Complaint: neck pain Time Seen by Provider: 02/08/25 08:14 Source: patient Mode of arrival: ambulatory Limitations: no limitations History of Present Illness: 55-year-old male states that presents chronic neck pain worsening pain on the left side of his neck over the last 3 to 4 days. States it is much worse with palpation and movement. Denies any injuries denies any numbness or weakness down his hands Associated symptoms: Denies headache(s) or nausea Related Data Home Medications ?Medication ?Instructions ?Recorded ?Confirmed docusate sodium 100 mg capsule 100 mg PO DAILY 04/11/20 12/23/24 (Stool Softener) diclofenac sodium 1 % topical gel 4 g topical QID PRN Pain 05/22/22 12/23/24 (Voltaren Arthritis Pain) Previous Rx's ?Medication ?Instructions ?Recorded polyethylene glycol 3350 17 17 g PO DAILY #238 grams 06/05/22 gram/dose oral powder (Miralax) warfarin 6 mg tablet 6 mg PO DAILY #90 tabs 05/25/23 epinephrine 0.3 mg/0.3 mL 0.3 mg (0.3 mL) IM Q20M PRN 08/05/23 injection, auto-injector (EpiPen anaphylaxis #2 ea 2-Remigio) warfarin 4 mg tablet 4 mg PO DAILY #90 tabs 03/26/24 amlodipine 10 mg tablet 10 mg PO DAILY #90 tabs 04/03/24 levothyroxine 200 mcg tablet 200 mcg PO DAILY #90 tabs 04/12/24 (Synthroid) losartan 100 mg tablet 100 mg PO DAILY #90 tabs 04/12/24 omeprazole 40 mg capsule,delayed 40 mg PO DAILY #90 caps 04/12/24 release warfarin 5 mg tablet 5 mg PO DAILY #90 tabs 10/27/24 methocarbamol 750 mg tablet 750 mg PO Q6H PRN spasms #20 tabs 02/08/25 naproxen 500 mg tablet (Naprosyn) 500 mg PO BID PRN pain #20 tabs 02/08/25 Allergies Allergy/AdvReac Type Severity Reaction Status Date / Time egg Allergy Unknown Verified 02/08/25 08:16 Review of Systems Const: Denies: fever(s), chills, body aches or change in appetite ENMT: Denies: throat pain or dental pain Card: Denies: chest pain Resp: Denies: dyspnea GI: Denies: abdominal pain, nausea, vomiting or diarrhea Musc: Reports: neck pain Skin/Breast: Denies: rash Neuro: Denies: headache(s) PFSH ED PFSH: Medical History (Updated 02/08/25 @ 08:22 by Asa Stuart MD) Neck pain Tobacco use disorder, moderate, dependence CVA (cerebral vascular accident) Chronic anticoagulation -On Coumadin Diverticulosis GERD (gastroesophageal reflux disease) Hypothyroidism Hypertension Surgical History Aortic valve replaced H/O hemorrhoidectomy Hx of tracheostomy H/O wrist surgery -right Mitral valve replaced -mechanical valve Family History Other Hypertension Stroke Denies family history of Diabetes CAD (coronary artery disease) Clotting disorder Dementia Hyperlipidemia Chronic kidney disease (CKD) Anesthesia complication Bleeding disorder Lung disease Cancer Social History Smoking and tobacco/nicotine status: former use of tobacco/nicotine Alcohol intake: never Substance/Drug Use: never Household members: family Marital status: Current occupational status: employed 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 Chest: COMMONS NORMALS: normal inspection of the chest Resp: COMMON NORMALS: normal respiratory effort Cardio: COMMON NORMALS: regular rate, regular rhythm and No murmurs present (Cardio) RATE: regular rate RHYTHM: regular rhythm Extremity: COMMON NORMALS: normal to inspection and full ROM Neuro: COMMON NORMALS: patient oriented x3, moves all extremities and no focal motor deficits Psych: COMMON NORMALS: mental status grossly normal, Normal thought process present and cooperative THOUGHT PROCESS: Normal thought process present Skin: COMMON NORMALS: no rashes or lesions noted and no wounds GENERAL SKIN EXAM: no rashes or lesions noted Course Vital Signs: Vital signs: Vital Signs Temperature 97.7 F 02/08/25 08:05 Pulse Rate 73 02/08/25 08:05 Respiratory Rate 16 02/08/25 08:05 Blood Pressure 152/82 02/08/25 08:05 Pulse Oximetry 99 02/08/25 08:05 Oxygen Delivery Me thod Room Air 02/08/25 08:05 MDM - Neck Pain/Injury Medical Decision Making Patient presents for neck pain acute on chronic likely muscular in nature patient stable for discharge follow-up PCP return if worsening. Medical Records I reviewed the patient's medical records. No radiology studies performed this visit Discharge Plan Discharge Patient Disposition: Home Clinical Impression: Neck pain Condition: Stable Prescriptions: New methocarbamol 750 mg tablet 750 mg PO Q6H PRN (Reason: spasms) Qty: 20 0RF naproxen [Naprosyn] 500 mg tablet 500 mg PO BID PRN (Reason: pain) Qty: 20 0RF No Action warfarin 6 mg tablet 6 mg PO DAILY Qty: 90 3RF Protocol: Dose Management Condition: Sunday Dose/Route: 4 mg Instruction: 1 x 4 mg tablet Condition: Sunday Dose/Route: 4 mg Instruction: 1 x 4 mg tablet Condition: Sunday Dose/Route: 4 mg Instruction: 1 x 4 mg tablet Condition: Sunday Dose/Route: 4 mg Instruction: 1 x 4 mg tablet Condition: Dose/Route: 4 mg Instruction: 1 x 4 mg tablet Condition: Sunday Dose/Route: 4 mg Instruction: 1 x 4 mg tablet Condition: Sunday Dose/Route: 4 mg Instruction: 1 x 4 mg tablet Protocol Text: Adjustment Start Date: Sunday11/10/24 INR Value: 31.2 Seconds INR Date: 11/10/24 Recheck Date: 12/08/24 Rx Instructions: take 6mg on Sun Sat and Sun amlodipine 10 mg tablet 10 mg PO DAILY Qty: 90 3RF polyethylene glycol 3350 [Miralax] 17 gram/dose powder 17 g PO DAILY Qty: 238 0RF warfarin 4 mg tablet 4 mg PO DAILY Qty: 90 3RF Protocol: Dose Management Condition: Sunday Dose/Route: 4 mg Instruction: 1 x 4 mg tablet Condition: Sunday Dose/Route: 4 mg Instruction: 1 x 4 mg tablet Condition: Sunday Dose/Route: 4 mg Instruction: 1 x 4 mg tablet Condition: Sunday Dose/Route: 4 mg Instruction: 1 x 4 mg tablet Condition: Dose/Route: 4 mg Instruction: 1 x 4 mg tablet Condition: Sunday Dose/Route: 4 mg Instruction: 1 x 4 mg tablet Condition: Sunday Dose/Route: 4 mg Instruction: 1 x 4 mg tablet Protocol Text: Adjustment Start Date: Sunday11/10/24 INR Value: 31.2 Seconds INR Date: 11/10/24 Recheck Date: 12/08/24 Rx Instructions: take 1 tab daily omeprazole 40 mg capsule,delayed release(DR/EC) 40 mg PO DAILY Qty: 90 1RF losartan 100 mg tablet 100 mg PO DAILY Qty: 90 1RF levothyroxine [Synthroid] 200 mcg tablet 200 mcg PO DAILY Qty: 90 1RF warfarin 5 mg tablet 5 mg PO DAILY Qty: 90 3RF Protocol: Dose Management Condition: Sunday Dose/Route: 4 mg Instruction: 1 x 4 mg tablet Condition: Sunday Dose/Route: 4 mg Instruction: 1 x 4 mg tablet Condition: Sunday Dose/Route: 4 mg Instruction: 1 x 4 mg tablet Condition: Sunday Dose/Route: 4 mg Instruction: 1 x 4 mg tablet Condition: Dose/Route: 4 mg Instruction: 1 x 4 mg tablet Condition: Sunday Dose/Route: 4 mg Instruction: 1 x 4 mg tablet Condition: Sunday Dose/Route: 4 mg Instruction: 1 x 4 mg tablet Protocol Text: Adjustment Start Date: Sunday11/10/24 INR Value: 31.2 Seconds INR Date: 11/10/24 Recheck Date: 12/08/24 Rx Instructions: 5mg on Sun and Sun docusate sodium [Stool Softener] 100 mg Capsule 100 mg PO DAILY diclofenac sodium [Voltaren Arthritis Pain] 1 % gel 4 g topical QID PRN (Reason: Pain) Rx Instructions: apply to single knee, ankle, foot; for foot includes sole/toes/top of foot EpiPen 2-Remigio 0.3 mg/0.3 mL auto-injector 0.3 mg IM Q20M PRN (Reason: anaphylaxis) Qty: 2 0RF Rx Instructions: not to exceed 6 doses per episode Discharge Orders: Discharge ED (Routine); Ordered 02/08/25 Ordered By: Asa Stuart Referrals: Flakito Yuen DO [Physician, Orthopedics] - 4-7 days Anders Wynne MD [Primary Care Provider, Family Practice] Discharge Diet: Advance as tolerated Discharge Activity: Resume usual activity Patient Instructions: Neck Pain (ED) Print Language: Maltese Coding Level of Care Code ED Web Site Developer for Hai Tucker
--- NOTE | 2025-02-09 07:46 | DCPLANNER ---
messaged ortho for er f/u
== END 2025-02-08 08:30 | disposition home or self-care (01) ==
PROVIDERS: Emergency Provider Emergency Medicine; PCP Family Medicine
DX: M54.2 Cervicalgia (principal); I10 Essential (primary) hypertension; E03.9 Hypothyroidism, unspecified; Z79.01 Long term (current) use of anticoagulants; Z79.899 Other long term (current) drug therapy; Z86.73 Personal history of transient ischemic attack (TIA), and cerebral infarction without residual deficits; Z87.891 Personal history of nicotine dependence; G89.29 Other chronic pain
CPT/HCPCS: 99283; J9999

== ENCOUNTER → 2025-02-19 15:20 | Outpatient (BNVA) | payer OTHER, SELFPAY | PROVIDERS: PCP Family Medicine; Visit Provider Orthopaedic Surgery | DX: M54.2 Cervicalgia (principal); M46.92 Unspecified inflammatory spondylopathy, cervical region | CPT/HCPCS: 72050 ==

== ENCOUNTER → 2025-02-25 07:55 | Outpatient (BNVA) | payer OTHER, SELFPAY | PROVIDERS: PCP Family Medicine; Visit Provider Internal Medicine | DX: Z95.2 Presence of prosthetic heart valve (principal) | CPT/HCPCS: 85610 ==

== ENCOUNTER → 2025-03-16 15:59 | Outpatient (BNVA) | payer OTHER, SELFPAY | PROVIDERS: PCP Family Medicine; Visit Provider Internal Medicine | DX: Z95.2 Presence of prosthetic heart valve (principal) | CPT/HCPCS: 85610 ==

== ENCOUNTER → 2025-03-23 14:41 | Outpatient (BNVA) | payer OTHER, SELFPAY | PROVIDERS: PCP Family Medicine; Visit Provider Internal Medicine | DX: Z95.2 Presence of prosthetic heart valve (principal) | CPT/HCPCS: 85610 ==

== ENCOUNTER 2025-04-24 08:00 | Outpatient (CLI) | payer OTHER, MEDICAID, SELFPAY | END 2025-04-24 08:01 | disposition home or self-care (01) | LOC: RAD 08:01 | PROVIDERS: PCP Family Medicine; Visit Provider Internal Medicine | DX: R07.9 Chest pain, unspecified (principal); R06.02 Shortness of breath | CPT/HCPCS: 93306 ==

== ENCOUNTER → 2025-04-27 16:08 | Outpatient (BNVA) | payer OTHER, MEDICAID, SELFPAY | PROVIDERS: PCP Family Medicine; Visit Provider Internal Medicine | DX: Z95.2 Presence of prosthetic heart valve (principal) | CPT/HCPCS: 85610 ==

== ENCOUNTER → 2025-05-28 17:57 | Outpatient (BNVA) | payer OTHER, MEDICAID, SELFPAY | PROVIDERS: PCP Family Medicine; Visit Provider Internal Medicine Cardiovascular Disease | DX: Z95.2 Presence of prosthetic heart valve (principal) | CPT/HCPCS: 85610 ==

== ENCOUNTER → 2025-06-11 08:32 | Outpatient (BNVA) | payer OTHER, MEDICAID, SELFPAY | PROVIDERS: PCP Family Medicine; Visit Provider Family Medicine | DX: I10 Essential (primary) hypertension (principal); N40.0 Benign prostatic hyperplasia without lower urinary tract symptoms; E03.9 Hypothyroidism, unspecified | CPT/HCPCS: 80053; 80061; 83036; 84153; 84439; 84443; 85025 ==

== ENCOUNTER → 2025-06-23 14:07 | Outpatient (BNVA) | payer OTHER, MEDICAID, SELFPAY | PROVIDERS: PCP Family Medicine; Visit Provider Internal Medicine Cardiovascular Disease | DX: Z95.2 Presence of prosthetic heart valve (principal) | CPT/HCPCS: 85610 ==

== ENCOUNTER → 2025-07-02 16:22 | Outpatient (BNVA) | payer OTHER, MEDICAID, SELFPAY | PROVIDERS: PCP Family Medicine; Visit Provider Internal Medicine | DX: Z95.2 Presence of prosthetic heart valve (principal) | CPT/HCPCS: 85610 ==